=== PATIENT | female | born 1970 | race Caucasian/White ===

== ENCOUNTER 2019-06-06 09:30 | Inpatient (IN) | payer OTHER ==
[2019-06-06 09:48] VITALS: BMI 26.3
--- NOTE | 2019-06-06 10:43 | HP ---
CIWA Score Nausea/Vomitin-Int. Nausea w/Dry Heave Muscle Tremors: 7-Severe,w/o Arm Extended Anxiety: 4-Mod. Anxious/Guarded Agitation: 4-Moderately Restless Paroxysmal Sweats: No Perspiration Orientation: 0-Oriented Tacttile Disturbances: 0-None Auditory Disturbances: 0-None Visual Disturbances: 3-Moderate Sensitivity Headache: 2-Mild CIWA-Ar Total Score: 24 - Admission Criteria OASAS Guidelines: Admission for Medically Managed Detox: Requires at least one of the followin. CIWA greater than 12 2. Seizures within the past 24 hours 3. Delirium tremens within the past 24 hours 4. Hallucinations within the past 24 hours 5. Acute intervention needed for co occurring medical disorder 6. Acute intervention needed for co occurring psychiatric disorder 7. Severe withdrawal that cannot be handled at a lower level of care (continued vomiting, continued diarrhea, abnormal vital signs) requiring intravenous medication and/or fluids 8. Admission ROS S - HPI Allergies/Adverse Reactions: Allergies Allergy/AdvReac Type Severity Reaction Status Date / Time azithromycin Allergy Intermediate Hives Verified 06/06/19 09:36 chlordiazepoxide Allergy Intermediate Hives Verified 06/06/19 09:36 [From Librium] History of Present Illness: pt here requesting detox from etoh use , reports 6 beers /day x 1 week, relapse after leaving program inpt February 2019 @ [facility] x 10 mo , current symptoms as above , was at [facility] this morning , claims was sent here , current cathy 0.027 , latest use yesterday , current symptoms as above . d/c paperwork indicates " d/c to home or self-care " . reports she starts drinking at various times , reports tremor , denies seizures or blackouts , + falls while intoxicated , most recently 2 d. ago w/ abrasion to face and knees . pmhx : pysd , lupus , depression pshx : r elbow frx orif w/ hardware in place lmp April 2019 Exam Limitations: Clinical Condition, Intoxication - Ebola screening Have you traveled outside of the country in the last 21 days: No Have you had contact with anyone from an Ebola affected area: No Do you have a fever: No - Review of Systems Constitutional: See HPI EENT: reports: No Symptoms Reported Respiratory: reports: No Symptoms reported Cardiac: reports: No Symptoms Reported GI: reports: See HPI, Diarrhea, Nausea, Vomiting : reports: No Symptoms Reported Musculoskeletal: reports: No Symptoms Reported Integumentary: reports: See HPI, Bruising (colette knees , left chemo of face) Neuro: reports: See HPI, Unsteady Gait Endocrine: reports: No Symptoms Reported Psychiatric: reports: Orientated x3, Agitated, Anxious Patient History - Smoking Cessation Smoking history: Current every day smoker Have you smoked in the past 12 months: Yes Hx Chewing Tobacco Use: No Initiated information on smoking cessation: No - Substances abused Alcohol Substance route: Oral Frequency: Daily Amount used: 6 pack Age of first use: 17 Date of last use: 06/05/19 Admission Physical Exam BHS - Physical General Appearance: Yes: Severe Distress, Alcohol on Breath, Intoxicated, Anxious HEENTM: Yes: Hearing grossly Normal, Normocephalic, Normal Voice Respiratory: Yes: Chest Non-Tender, Lungs Clear, No Respiratory Distress, No Accessory Muscle Use Neck: Yes: No masses,lesions,Nodules, Trachea in good position Cardiology: Yes: Regular Rhythm, Regular Rate, S1, S2, Tachycardia Abdominal: Yes: Non Tender, Soft Extremities: Yes: Tremors Neurological: Yes: Motor Strength 5/5, Depressed Affect Integumentary: Yes: Other (superficial abrasions colette knees, left lateral maxilla) - Diagnostic (1) Alcohol intoxication Current Visit: Yes Status: Acute (2) Alcohol withdrawal Current Visit: Yes Status: Acute Breathalyzer - Breathalyzer Breathalyzer: 0.027 Urine Drug Screen - Test Device Lot number: [id number] Expiration date: 03/19/21 - Control Is test valid?: Yes - Results Drug screen NEGATIVE: No Urine drug screen results: BZO-Benzodiazepines Inpatient Rehab Admission - Rehab Decision to Admit Inpatient rehab admission?: No
[2019-06-06] MEDS ORDERED: MAGNESIUM HYDROX 2400MG/30ML ORAL SUSPENSION 30 ML CUP PO PRN (10:47)
[2019-06-06] MEDS ORDERED: ACETAMINOPHEN 325 MG TABLET (FP) PO PRN ×2 (10:47)
[2019-06-06] MEDS ORDERED: IBUPROFEN 400 MG TABLET (FP) PO PRN (10:47)
[2019-06-06] MEDS ORDERED: BISMUTH SUBSALICYLATE 262 MG/15 ML BTL PO PRN (10:47)
[2019-06-06] MEDS ORDERED: MAG HYDROX/AL HYDROX/SIMETH 30 ML UNIT-DOSE CUP PO PRN (10:47)
[2019-06-06] MEDS ORDERED: MAGNESIUM CITRATE 300 ML BOTTLE PO PRN (10:47)
[2019-06-06] MEDS ORDERED: ONDANSETRON *ODT* 4 MG TABLET SL PRN (10:47)
[2019-06-06] MEDS ORDERED: MENTHOL/PHENOL 1 EACH UD MM PRN (10:47)
[2019-06-06] MEDS: LORazepam 2 MG TABLET PO SCH ×3 (11:37→23:30)
[2019-06-06] MEDS: hydrOXYzine HCL 25 MG TABLET (FP) PO PRN ×2 (12:24→23:30)
[2019-06-06 14:25] LABS: HEMATOCRIT 42.6 % (32.4-45.2); HEMOGLOBIN 14.6 GM/dL (10.7-15.3); MCH 33.1 pg (25.7-33.7); MCHC 34.3 g/dl (32.0-36.0); MEAN CELL VOLUME 96.4 fl (80-96); MEAN PLT VOLUME 10.9 fl (7.5-11.1); RBC 4.42 M/mm3 (3.60-5.2); RDW 15.3 % (11.6-15.6); WHITE BLOOD COUNT 7.3 K/mm3 (4.0-10.0)
[2019-06-06 14:38] LABS: BILIRUBIN,TOTAL 0.7 mg/dL (0.2-1); BLOOD UREA NITROGEN 4.4 mg/dL (7-18); CALCIUM 8.8 mg/dL (8.5-10.1); CREATININE 0.6 mg/dL (0.55-1.3); POTASSIUM 3.7 mmol/L (3.5-5.1); TOT PROT 7.8 g/dl (6.4-8.2)
[2019-06-06 14:41] LABS: PLATELET COUNT 148 K/MM3 (134-434)
[2019-06-06] MEDS: LORazepam 1 MG TABLET PO PRN ×2 (14:44→21:12)
[2019-06-06] MEDS: THIAMINE HCL 100 MG TABLET (FP) PO SCH (23:30)
[2019-06-07] MEDS: LORazepam 2 MG TABLET PO SCH ×4 (05:37→22:38)
[2019-06-07] MEDS: PRENATAL VITAMINS W/ FOLIC ACID TABLET (FP) PO SCH (10:33)
--- NOTE | 2019-06-07 11:31 | PN ---
S CIWA - CIWA Score Nausea/Vomitin Muscle Tremors: 4-Moderate,w/Arms Extend Anxiety: 2 Agitation: 1-Slight > Activity Paroxysmal Sweats: 3 Orientation: 0-Oriented Tacttile Disturbances: 3-Moderate Itch/Numb/Burn Auditory Disturbances: 0-None Visual Disturbances: 0-None Headache: 0-None Present CIWA-Ar Total Score: 15 BHS Progress Note (SOAP) Subjective: interrupted sleep, sweats, shakes, left lat. orbit Objective: 06/07/19 11:33 pt aox3, tremor , lying in bed hematoma left lat orbital area 06/07/19 11:34 Vital Signs Temperature 98.1 F 06/07/19 09:27 Pulse Rate 65 06/07/19 09:27 Respiratory Rate 18 06/07/19 09:27 Blood Pressure 135/85 06/07/19 09:27 O2 Sat by Pulse Oximetry (%) Laboratory Tests 06/06/19 06/06/19 06/06/19 13:00 13:00 13:00 WBC 7.3 RBC 4.42 Hgb 14.6 Hct 42.6 MCV 96.4 H MCH 33.1 MCHC 34.3 RDW 15.3 Plt Count 148 MPV 10.9 Sodium 138 Potassium 3.7 Chloride 106 Carbon Dioxide 23 Anion Gap 9 BUN 4.4 L Creatinine 0.6 Est GFR (CKD-EPI)AfAm 124.92 Est GFR (CKD-EPI)NonAf 107.78 Random Glucose 80 Calcium 8.8 Total Bilirubin 0.7 AST 54 H ALT 70 H Alkaline Phosphatase 92 Total Protein 7.8 Albumin 4.0 RPR Titer Nonreactive Assessment: 06/07/19 11:34 withdrawal sx's elevated transaminasezs s/p fall 06/07/19 11:35 Plan: cont. detox increase fluids librium prn
[2019-06-07] MEDS: LORazepam 1 MG TABLET PO PRN ×2 (12:37→19:49)
[2019-06-07] MEDS: THIAMINE HCL 100 MG TABLET (FP) PO SCH (22:38)
[2019-06-07] MEDS: MELATONIN 5 MG TABLETS PO PRN (22:39)
[2019-06-07] MEDS: hydrOXYzine HCL 25 MG TABLET (FP) PO PRN (22:39)
[2019-06-08] MEDS: LORazepam 1 MG TABLET PO SCH ×4 (06:02→22:01)
[2019-06-08] MEDS: PRENATAL VITAMINS W/ FOLIC ACID TABLET (FP) PO SCH (10:26)
--- NOTE | 2019-06-08 12:09 | PN ---
BHS CIWA - CIWA Score Nausea/Vomitin-No Nausea/No Vomiting Muscle Tremors: 2 Anxiety: 3
--- NOTE | 2019-06-08 13:21 | PN ---
S CIWA - CIWA Score Nausea/Vomitin-No Nausea/No Vomiting Muscle Tremors: 2 Anxiety: 2 Agitation: 2 Paroxysmal Sweats: 3 Orientation: 0-Oriented Tacttile Disturbances: 0-None Auditory Disturbances: 0-None Visual Disturbances: 0-None Headache: 2-Mild CIWA-Ar Total Score: 11 S Progress Note (SOAP) Subjective: c/o sweats, headache, shakes, and anxiety. Objective: 06/08/19 13:19 Vital Signs 06/08/19 06/08/19 08:24 09:00 Temperature 98.2 F 98.1 F Pulse Rate 77 77 Respiratory 16 16 Rate Blood Pressure 133/85 130/78 Lab Results WBC 7.3 K/mm3 (4.0-10.0) 06/06/19 13:00 RBC 4.42 M/mm3 (3.60-5.2) 06/06/19 13:00 Hgb 14.6 GM/dL (10.7-15.3) 06/06/19 13:00 Hct 42.6 % (32.4-45.2) 06/06/19 13:00 MCV 96.4 fl (80-96) H 06/06/19 13:00 MCHC 34.3 g/dl (32.0-36.0) 06/06/19 13:00 RDW 15.3 % (11.6-15.6) 06/06/19 13:00 Plt Count 148 K/MM3 (134-434) 06/06/19 13:00 Sodium 138 mmol/L (136-145) 06/06/19 13:00 Potassium 3.7 mmol/L (3.5-5.1) 06/06/19 13:00 Chloride 106 mmol/L (98-107) 06/06/19 13:00 Carbon Dioxide 23 mmol/L (21-32) 06/06/19 13:00 Anion Gap 9 MMOL/L (8-16) 06/06/19 13:00 BUN 4.4 mg/dL (7-18) L 06/06/19 13:00 Creatinine 0.6 mg/dL (0.55-1.3) 06/06/19 13:00 Random Glucose 80 mg/dL (74-106) 06/06/19 13:00 Calcium 8.8 mg/dL (8.5-10.1) 06/06/19 13:00 Labs noted. Assessment: 06/08/19 13:19 AOX3, in no acute distress. Full ROM, ambulating in the unit. Withdrawal symptoms. Plan: continue detox.
[2019-06-08] MEDS: LORazepam 1 MG TABLET PO PRN (13:46)
[2019-06-08] MEDS: hydrOXYzine HCL 25 MG TABLET (FP) PO PRN ×2 (15:50→21:53)
[2019-06-08] MEDS: NICOTINE POLACRILEX 2 MG GUM BUC PRN ×2 (15:51→20:27)
[2019-06-08] MEDS: MELATONIN 5 MG TABLETS PO PRN (21:52)
[2019-06-08] MEDS: THIAMINE HCL 100 MG TABLET (FP) PO SCH (21:52)
[2019-06-09] MEDS ORDERED: LORazepam 0.5 MG TABLET PO PRN
[2019-06-09] MEDS: LORazepam 0.5 MG TABLET PO SCH ×2 (06:04→10:25)
[2019-06-09] MEDS: hydrOXYzine HCL 25 MG TABLET (FP) PO PRN ×2 (06:04→15:07)
[2019-06-09] MEDS: PRENATAL VITAMINS W/ FOLIC ACID TABLET (FP) PO SCH (10:25)
[2019-06-09] MEDS: NICOTINE POLACRILEX 2 MG GUM BUC PRN ×2 (13:46→15:51)
[2019-06-09 14:00] VITALS: BP 132/8; PULSE 91; TEMP 98.1
--- NOTE | 2019-06-09 14:14 | PN ---
S CIWA - CIWA Score Nausea/Vomitin-No Nausea/No Vomiting Muscle Tremors: 1-None Visible, but Gibson Anxiety: 2 Agitation: 0-Normal Activity Paroxysmal Sweats: 1-Minimal Palms Moist Orientation: 0-Oriented Tacttile Disturbances: 0-None Auditory Disturbances: 0-None Visual Disturbances: 0-None Headache: 0-None Present CIWA-Ar Total Score: 4 BHS Progress Note (SOAP) Subjective: Patient c/o anxiety, mild headache and sweating . Objective: 06/09/19 14:12 Laboratory Tests 06/06/19 06/06/19 06/06/19 09:48 12:00 13:00 WBC 7.3 RBC 4.42 Hgb 14.6 Hct 42.6 MCV 96.4 H MCH 33.1 MCHC 34.3 RDW 15.3 Plt Count 148 MPV 10.9 Sodium Potassium Chloride Carbon Dioxide Anion Gap BUN Creatinine Est GFR (CKD-EPI)AfAm Est GFR (CKD-EPI)NonAf Random Glucose Calcium Total Bilirubin AST ALT Alkaline Phosphatase Total Protein Albumin POC Urine HCG, Qual Negative RPR Titer TB (QFT) Incubation TB Test (QFT) Nil 0.03 TB Test (QFT) Mitogen 1.62 TB Test (QFT) Antigen 0.03 TB Test (QFT) Negative TB Positive Criteria 06/06/19 06/06/19 13:00 13:00 WBC RBC Hgb Hct MCV MCH MCHC RDW Plt Count MPV Sodium 138 Potassium 3.7 Chloride 106 Carbon Dioxide 23 Anion Gap 9 BUN 4.4 L Creatinine 0.6 Est GFR (CKD-EPI)AfAm 124.92 Est GFR (CKD-EPI)NonAf 107.78 Random Glucose 80 Calcium 8.8 Total Bilirubin 0.7 AST 54 H ALT 70 H Alkaline Phosphatase 92 Total Protein 7.8 Albumin 4.0 POC Urine HCG, Qual RPR Titer Nonreactive TB (QFT) Incubation TB Test (QFT) Nil TB Test (QFT) Mitogen TB Test (QFT) Antigen TB Test (QFT) TB Positive Criteria Vital Signs Temperature 98.1 F 06/09/19 13:59 Pulse Rate 91 H 06/09/19 13:59 Respiratory Rate 18 06/09/19 13:59 Blood Pressure 132/8 L 06/09/19 13:59 O2 Sat by Pulse Oximetry (%) PE alert and oriented x3 skin + facial flushing, warm +perrla, eoms intact bl ext no tremors full rom mildly anxious Assessment: 06/09/19 14:13 withdrawal sx Plan: continue detox monitor clinically
--- NOTE | 2019-06-09 16:41 | PN ---
S Progress Note Note: CONTACTED BY FLOOR RN TO REPORT AMA DEPARTURE ENSURED THAT PT COUNSELED RE RISKS OF RELAPSE OVERSEDATION LOSS OF TOLERANCE
[2019-06-10] MEDS ORDERED: LORazepam 0.5 MG TABLET PO ONE (05:00)
== END 2019-06-09 16:49 | disposition left against medical advice (07) | DRG 770 ==
LOC: YASAS 09:30 → Y6N 11:02
PROVIDERS: ADMIT Surgery; ATTEND Surgery
PROC: HZ2ZZZZ Detoxification Services for Substance Abuse Treatment (ICD-10-PCS; principal; 2019-06-06)
DX: F10.230 Alcohol dependence with withdrawal, uncomplicated (principal); F10.220 Alcohol dependence with intoxication, uncomplicated; F17.210 Nicotine dependence, cigarettes, uncomplicated; R74.0 Nonspecific elevation of levels of transaminase and lactic acid dehydrogenase [LDH]; Z88.1 Allergy status to other antibiotic agents; W19.XXXA Unspecified fall, initial encounter; Y93.9 Activity, unspecified; Y92.239 Unspecified place in hospital as the place of occurrence of the external cause
CPT/HCPCS: 36415; 80053; 81025; 85027; 86480; 86593

== ENCOUNTER 2019-08-15 10:44 | Inpatient (IN) | payer OTHER ==
[2019-08-15 11:07] VITALS: BMI 24.7
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
[2019-08-15] MEDS ORDERED: hydrOXYzine PAMOATE 25 MG CAPSULE (FP) PO PRN (12:32)
[2019-08-15] MEDS ORDERED: MAGNESIUM CITRATE 300 ML BOTTLE PO PRN (12:32)
[2019-08-15] MEDS ORDERED: IBUPROFEN 400 MG TABLET (FP) PO PRN (12:32)
[2019-08-15] MEDS ORDERED: METHOCARBAMOL 500 MG TABLET PO PRN (12:32)
[2019-08-15] MEDS ORDERED: MAG HYDROX/AL HYDROX/SIMETH 30 ML UNIT-DOSE CUP PO PRN (12:32)
[2019-08-15] MEDS ORDERED: MAGNESIUM HYDROX 2400MG/30ML ORAL SUSPENSION 30 ML CUP PO PRN (12:32)
[2019-08-15] MEDS ORDERED: BISMUTH SUBSALICYLATE 262 MG/15 ML BTL PO PRN (12:32)
[2019-08-15] MEDS ORDERED: MENTHOL/PHENOL 1 EACH UD MM PRN (12:32)
[2019-08-15] MEDS ORDERED: ACETAMINOPHEN 325 MG TABLET (FP) PO PRN ×2 (12:32)
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
[2019-08-15] MEDS: LORazepam 1 MG TABLET PO PRN (13:14)
[2019-08-15 14:34] LABS: HEMATOCRIT 44.6 % (32.4-45.2); HEMOGLOBIN 14.9 GM/dL (10.7-15.3); MCH 32.9 pg (25.7-33.7); MCHC 33.3 g/dl (32.0-36.0); MEAN CELL VOLUME 98.9 fl (80-96); MEAN PLT VOLUME 10.5 fl (7.5-11.1); PLATELET COUNT 149 K/MM3 (134-434); RBC 4.51 M/mm3 (3.60-5.2); RDW 14.4 % (11.6-15.6); WHITE BLOOD COUNT 6.8 K/mm3 (4.0-10.0)
[2019-08-15 14:44] LABS: ALBUMIN 4.1 g/dl (3.4-5.0); BILIRUBIN,TOTAL 0.7 mg/dL (0.2-1); BLOOD UREA NITROGEN 7.4 mg/dL (7-18); CALCIUM 9.8 mg/dL (8.5-10.1); CREATININE 0.7 mg/dL (0.55-1.3); POTASSIUM 4.3 mmol/L (3.5-5.1); TOT PROT 8.3 g/dl (6.4-8.2)
[2019-08-15] MEDS: LORazepam 2 MG TABLET PO SCH ×2 (16:56→22:28)
[2019-08-15] MEDS: THIAMINE HCL 100 MG TABLET (FP) PO SCH (22:28)
[2019-08-15] MEDS: MELATONIN 5 MG TABLETS PO PRN (22:28)
[2019-08-16] MEDS: LORazepam 2 MG TABLET PO SCH ×4 (05:51→22:47)
[2019-08-16] MEDS: PRENATAL VITAMINS W/ FOLIC ACID TABLET (FP) PO SCH (10:38)
[2019-08-16] MEDS: NICOTINE 21 MG/24 HOURS TOPICAL PATCH TD SCH (10:39)
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
--- NOTE | 2019-08-16 11:58 | PN ---
S CIWA - CIWA Score Nausea/Vomitin-No Nausea/No Vomiting Muscle Tremors: 3 Anxiety: 3 Agitation: 3 Paroxysmal Sweats: 3 Orientation: 0-Oriented Tacttile Disturbances: 0-None Auditory Disturbances: 0-None Visual Disturbances: 0-None Headache: 0-None Present CIWA-Ar Total Score: 12 S Progress Note (SOAP) Subjective: body aches sweats shakes tired irritable Objective: 08/16/19 11:56 Vital Signs Temperature 98.1 F 08/16/19 09:34 Pulse Rate 65 08/16/19 09:34 Respiratory Rate 18 08/16/19 09:34 Blood Pressure 130/83 08/16/19 09:34 O2 Sat by Pulse Oximetry (%) Laboratory Tests 08/15/19 08/15/19 08/15/19 11:34 13:20 13:20 WBC 6.8 RBC 4.51 Hgb 14.9 Hct 44.6 MCV 98.9 H MCH 32.9 MCHC 33.3 RDW 14.4 Plt Count 149 MPV 10.5 Sodium 139 Potassium 4.3 Chloride 102 Carbon Dioxide 26 Anion Gap 11 BUN 7.4 Creatinine 0.7 Est GFR (CKD-EPI)AfAm 118.74 Est GFR (CKD-EPI)NonAf 102.45 Random Glucose 79 Calcium 9.8 Total Bilirubin 0.7 AST 46 H ALT 53 Alkaline Phosphatase 99 Total Protein 8.3 H Albumin 4.1 POC Urine HCG, Qual Negative RPR Titer 08/15/19 13:20 WBC RBC Hgb Hct MCV MCH MCHC RDW Plt Count MPV Sodium Potassium Chloride Carbon Dioxide Anion Gap BUN Creatinine Est GFR (CKD-EPI)AfAm Est GFR (CKD-EPI)NonAf Random Glucose Calcium Total Bilirubin AST ALT Alkaline Phosphatase Total Protein Albumin POC Urine HCG, Qual RPR Titer Nonreactive labs noted aaox3 ambulating no acute distress Assessment: 08/16/19 11:58 withdrawals Plan: continue detox increase fluids
--- NOTE | 2019-08-16 17:36 | PN ---
S Progress Note Note: Vital Signs Temperature 97.4 F L 08/16/19 12:59 Pulse Rate 70 08/16/19 12:59 Respiratory Rate 18 08/16/19 12:59 Blood Pressure 130/77 08/16/19 12:59 O2 Sat by Pulse Oximetry (%) patient c/o of white itchy vaginal discharge. one time dose diflucan PO increase fluids follow up with QUANTITATIVE ANALYST continue to monitor
[2019-08-16] MEDS ORDERED: FLUCONAZOLE 50 MG TABLET PO ONE (18:00)
[2019-08-16] MEDS ORDERED: FLUCONAZOLE 150 MG TABLET PO ONE (20:15)
[2019-08-16] MEDS: LORazepam 1 MG TABLET PO PRN (21:23)
[2019-08-16] MEDS: THIAMINE HCL 100 MG TABLET (FP) PO SCH (22:47)
[2019-08-16] MEDS: MELATONIN 5 MG TABLETS PO PRN (22:53)
[2019-08-17] MEDS: LORazepam 1 MG TABLET PO SCH ×4 (06:21→22:01)
[2019-08-17] MEDS: PRENATAL VITAMINS W/ FOLIC ACID TABLET (FP) PO SCH (10:47)
[2019-08-17] MEDS: NICOTINE 21 MG/24 HOURS TOPICAL PATCH TD SCH (10:47)
[2019-08-17] MEDS: NICOTINE POLACRILEX 2 MG GUM BUC PRN ×3 (12:44→19:21)
[2019-08-17] MEDS: LORazepam 1 MG TABLET PO PRN ×2 (13:39→20:06)
--- NOTE | 2019-08-17 13:54 | PN ---
S CIWA - CIWA Score Nausea/Vomitin-No Nausea/No Vomiting Muscle Tremors: 2 Anxiety: 3 Agitation: 2 Paroxysmal Sweats: 3 Orientation: 0-Oriented Tacttile Disturbances: 0-None Auditory Disturbances: 0-None Visual Disturbances: 0-None Headache: 0-None Present CIWA-Ar Total Score: 10 S Progress Note (SOAP) Subjective: c/o sweats, anxiety, headache, and tiredness. Objective: 08/17/19 13:53 Vital Signs 08/17/19 08/17/19 07:28 09:52 Temperature 97.9 F 98.1 F Pulse Rate 67 61 Respiratory 18 16 Rate Blood Pressure 127/75 131/78 Lab Results WBC 6.8 K/mm3 (4.0-10.0) 08/15/19 13:20 RBC 4.51 M/mm3 (3.60-5.2) 08/15/19 13:20 Hgb 14.9 GM/dL (10.7-15.3) 08/15/19 13:20 Hct 44.6 % (32.4-45.2) 08/15/19 13:20 MCV 98.9 fl (80-96) H 08/15/19 13:20 MCHC 33.3 g/dl (32.0-36.0) 08/15/19 13:20 RDW 14.4 % (11.6-15.6) 08/15/19 13:20 Plt Count 149 K/MM3 (134-434) 08/15/19 13:20 Sodium 139 mmol/L (136-145) 08/15/19 13:20 Potassium 4.3 mmol/L (3.5-5.1) 08/15/19 13:20 Chloride 102 mmol/L (98-107) 08/15/19 13:20 Carbon Dioxide 26 mmol/L (21-32) 08/15/19 13:20 Anion Gap 11 MMOL/L (8-16) 08/15/19 13:20 BUN 7.4 mg/dL (7-18) 08/15/19 13:20 Creatinine 0.7 mg/dL (0.55-1.3) 08/15/19 13:20 Random Glucose 79 mg/dL (74-106) 08/15/19 13:20 Calcium 9.8 mg/dL (8.5-10.1) 08/15/19 13:20 Labs noted. Assessment: 08/17/19 13:54 Pt is alert and oriented x3 and in no acute respiratory distress. Full ROM, ambulating in the unit. Withdrawal symptoms. Plan: continue detox.
[2019-08-17] MEDS: THIAMINE HCL 100 MG TABLET (FP) PO SCH (22:01)
[2019-08-17] MEDS: MELATONIN 5 MG TABLETS PO PRN (22:02)
[2019-08-18] MEDS ORDERED: LORazepam 0.5 MG TABLET PO PRN
[2019-08-18] MEDS: LORazepam 0.5 MG TABLET PO SCH ×2 (05:54→10:27)
[2019-08-18] MEDS: PRENATAL VITAMINS W/ FOLIC ACID TABLET (FP) PO SCH (10:27)
[2019-08-18] MEDS: NICOTINE 21 MG/24 HOURS TOPICAL PATCH TD SCH (10:27)
[2019-08-18] MEDS: NICOTINE POLACRILEX 2 MG GUM BUC PRN ×2 (10:29→12:13)
[2019-08-18 12:03] VITALS: BP 118/62; PULSE 73; TEMP 98.6
--- NOTE | 2019-08-18 16:37 | DS ---
[facility] Detox Discharge Summary Admission Date: 08/15/19 Discharge Date: 08/18/19 - History Present History: Alcohol Dependence Additional Comments: Patient demanded to leave AMA as per note despite encouragement to stay. Patient instructed to call 911 if sick/withdrawal sxs and to see her PCP within 3 days. Pertinent Past History: Lupus Nicotine dependence ETOH dependence PTSD Anxiety Depression - Physical Exam Results Vital Signs: Vital Signs Temperature 98.6 F 08/18/19 12:03 Pulse Rate 73 08/18/19 12:03 Respiratory Rate 18 08/18/19 12:03 Blood Pressure 118/62 08/18/19 12:03 O2 Sat by Pulse Oximetry (%) Pertinent Admission Physical Exam Findings: Withdrawal sxs Laboratory Tests 08/15/19 08/15/19 08/15/19 11:34 13:20 13:20 WBC 6.8 RBC 4.51 Hgb 14.9 Hct 44.6 MCV 98.9 H MCH 32.9 MCHC 33.3 RDW 14.4 Plt Count 149 MPV 10.5 Sodium 139 Potassium 4.3 Chloride 102 Carbon Dioxide 26 Anion Gap 11 BUN 7.4 Creatinine 0.7 Est GFR (CKD-EPI)AfAm 118.74 Est GFR (CKD-EPI)NonAf 102.45 Random Glucose 79 Calcium 9.8 Total Bilirubin 0.7 AST 46 H ALT 53 Alkaline Phosphatase 99 Total Protein 8.3 H Albumin 4.1 POC Urine HCG, Qual Negative RPR Titer 08/15/19 13:20 WBC RBC Hgb Hct MCV MCH MCHC RDW Plt Count MPV Sodium Potassium Chloride Carbon Dioxide Anion Gap BUN Creatinine Est GFR (CKD-EPI)AfAm Est GFR (CKD-EPI)NonAf Random Glucose Calcium Total Bilirubin AST ALT Alkaline Phosphatase Total Protein Albumin POC Urine HCG, Qual RPR Titer Nonreactive Labs reviewed - Medication Discharge Medications: Ambulatory Orders Escitalopram Oxalate [Lexapro -] 20 mg PO DAILY 06/06/19 - Diagnosis (1) PTSD (post-traumatic stress disorder) Status: Chronic (2) Anxiety Status: Chronic (3) Uncomplicated alcohol dependence Status: Acute (4) Lupus Status: Chronic (5) MDD (major depressive disorder), recurrent episode Status: Chronic (6) Nicotine dependence Status: Chronic - AMA Did Patient Leave Against Medical Advice: Yes (Instructed to call [phone] [phone] if sick/withdrawal sxs)
[2019-08-19] MEDS ORDERED: LORazepam 0.5 MG TABLET PO ONE (05:00)
== END 2019-08-18 12:51 | disposition left against medical advice (07) | DRG 770 ==
LOC: YASAS 10:44 → Y6N 12:54
PROVIDERS: ADMIT Surgery; ATTEND Surgery
PROC: HZ2ZZZZ Detoxification Services for Substance Abuse Treatment (ICD-10-PCS; principal; 2019-08-15)
DX: F10.230 Alcohol dependence with withdrawal, uncomplicated (principal); F10.24 Alcohol dependence with alcohol-induced mood disorder; F10.282 Alcohol dependence with alcohol-induced sleep disorder; F17.210 Nicotine dependence, cigarettes, uncomplicated; F32.9 Major depressive disorder, single episode, unspecified; F41.9 Anxiety disorder, unspecified; F43.10 Post-traumatic stress disorder, unspecified; M32.9 Systemic lupus erythematosus, unspecified; N89.8 Other specified noninflammatory disorders of vagina; Z88.1 Allergy status to other antibiotic agents; Z88.8 Allergy status to other drugs, medicaments and biological substances
CPT/HCPCS: 36415; 80053; 81025; 85027; 86593

== ENCOUNTER 2019-10-05 08:13 | Inpatient (IN) | payer OTHER ==
[2019-10-05 09:11] VITALS: BMI 23.8
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
[2019-10-05] MEDS ORDERED: MENTHOL/PHENOL 1 EACH UD MM PRN (09:35)
[2019-10-05] MEDS ORDERED: IBUPROFEN 400 MG TABLET (FP) PO PRN (09:35)
[2019-10-05] MEDS ORDERED: MAGNESIUM HYDROX 2400MG/30ML ORAL SUSPENSION 30 ML CUP PO PRN (09:35)
[2019-10-05] MEDS ORDERED: MAG HYDROX/AL HYDROX/SIMETH 30 ML UNIT-DOSE CUP PO PRN (09:35)
[2019-10-05] MEDS ORDERED: ACETAMINOPHEN 325 MG TABLET (FP) PO PRN ×2 (09:35)
[2019-10-05] MEDS ORDERED: BISMUTH SUBSALICYLATE 524 MG/30 ML UD PO PRN (09:35)
[2019-10-05] MEDS ORDERED: MAGNESIUM CITRATE 300 ML BOTTLE PO PRN (09:35)
[2019-10-05] MEDS ORDERED: ESCITALOPRAM OXALATE 20 MG TABLET (FP) PO ONE (10:00)
[2019-10-05] MEDS ORDERED: LORazepam 2 MG TABLET PO ONE (10:30)
[2019-10-05] MEDS: LORazepam 2 MG TABLET PO SCH ×3 (10:34→22:57)
[2019-10-05] MEDS: PRENATAL VITAMINS W/ FOLIC ACID TABLET (FP) PO SCH (10:45)
[2019-10-05] MEDS: METHOCARBAMOL 500 MG TABLET PO PRN (12:37)
[2019-10-05] MEDS: LORazepam 1 MG TABLET PO PRN ×2 (12:37→20:30)
[2019-10-05 15:27] LABS: HEMOGLOBIN 14.8 GM/dL (10.7-15.3); MCH 33.4 pg (25.7-33.7); MCHC 33.7 g/dl (32.0-36.0); MEAN PLT VOLUME 10.5 fl (7.5-11.1); PLATELET COUNT 167 K/MM3 (134-434); RBC 4.44 M/mm3 (3.60-5.2); RDW 14.4 % (11.6-15.6); WHITE BLOOD COUNT 6.9 K/mm3 (4.0-10.0)
[2019-10-05 15:33] LABS: BILIRUBIN,TOTAL 0.3 mg/dL (0.2-1); BLOOD UREA NITROGEN 7.5 mg/dL (7-18); CALCIUM 9.6 mg/dL (8.5-10.1); CREATININE 0.8 mg/dL (0.55-1.3); POTASSIUM 3.9 mmol/L (3.5-5.1); TOT PROT 8.4 g/dl (6.4-8.2)
[2019-10-05] MEDS: THIAMINE HCL 100 MG TABLET (FP) PO SCH (22:57)
[2019-10-05] MEDS: NICOTINE POLACRILEX 4 MG GUM BUC PRN (22:57)
[2019-10-06] MEDS: LORazepam 2 MG TABLET PO SCH ×4 (05:19→22:55)
[2019-10-06] MEDS: PRENATAL VITAMINS W/ FOLIC ACID TABLET (FP) PO SCH (10:12)
[2019-10-06] MEDS: NICOTINE POLACRILEX 4 MG GUM BUC PRN ×2 (10:12→16:52)
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
[2019-10-06] MEDS: ESCITALOPRAM OXALATE 20 MG TABLET (FP) PO SCH (12:17)
[2019-10-06] MEDS: LORazepam 1 MG TABLET PO PRN ×2 (12:18→20:42)
[2019-10-06] MEDS ORDERED: cloNIDine HCL 0.1 MG TABLET PO PRN (16:48)
--- NOTE | 2019-10-06 16:48 | EKG ---
Test Reason : Blood Pressure : / mmHG Vent. Rate : 085 BPM Atrial Rate : 085 BPM P-R Int : 130 ms QRS Dur : 098 ms QT Int : 400 ms P-R-T Axes : 038 051 032 degrees QTc Int : 476 ms NORMAL SINUS RHYTHM MINIMAL VOLTAGE CRITERIA FOR LVH, MAY BE NORMAL VARIANT NO PREVIOUS ECGS AVAILABLE Confirmed by GERMAN ALMODOVAR MD ([id number]) on 10/06/2019 4:47:55 PM Referred By: Confirmed By:GERMAN ALMODOVAR MD
--- NOTE | 2019-10-06 16:48 | PN ---
S CIWA - CIWA Score Nausea/Vomitin-Mild Nausea/No Vomiting Muscle Tremors: 3 Anxiety: 4-Mod. Anxious/Guarded Agitation: 3 Paroxysmal Sweats: 3 Orientation: 0-Oriented Tacttile Disturbances: 0-None Auditory Disturbances: 0-None Visual Disturbances: 0-None Headache: 0-None Present CIWA-Ar Total Score: 14 BHS Progress Note (SOAP) Subjective: Tremor, diarrhea Objective: 10/06/19 16:46 Last Vital Signs Temp Pulse Resp BP Pulse Ox 98.2 F 79 18 131/91 10/06/19 11:31 10/06/19 11:31 10/06/19 11:31 10/06/19 11:31 Elevated b/p: has htn when drinking alcohol, not on medication Laboratory Tests 10/05/19 10/05/19 10/05/19 09:45 09:45 09:45 WBC 6.9 RBC 4.44 Hgb 14.8 Hct 44.0 MCV 99.0 H MCH 33.4 MCHC 33.7 RDW 14.4 Plt Count 167 MPV 10.5 Sodium 138 Potassium 3.9 Chloride 104 Carbon Dioxide 26 Anion Gap 8 BUN 7.5 Creatinine 0.8 Est GFR (CKD-EPI)AfAm 101.04 Est GFR (CKD-EPI)NonAf 87.18 Random Glucose 108 H Calcium 9.6 Total Bilirubin 0.3 AST 31 ALT 48 Alkaline Phosphatase 96 Total Protein 8.4 H Albumin 4.0 RPR Titer Nonreactive Labs reviewed Assessment: 10/06/19 16:47 Withdrawal sxs Has HTN, not on medication Plan: Continue detox Encouraged PO water hydration HTN: start clonidine 0.1mg PO q8hr prn if b/p > 140/90
[2019-10-06] MEDS: THIAMINE HCL 100 MG TABLET (FP) PO SCH (22:55)
[2019-10-07] MEDS: LORazepam 1 MG TABLET PO SCH ×4 (05:33→21:59)
[2019-10-07] MEDS: NICOTINE POLACRILEX 4 MG GUM BUC PRN ×3 (08:54→19:48)
[2019-10-07] MEDS: hydrOXYzine PAMOATE 25 MG CAPSULE (FP) PO PRN ×2 (08:55→21:59)
[2019-10-07] MEDS: PRENATAL VITAMINS W/ FOLIC ACID TABLET (FP) PO SCH (10:48)
[2019-10-07] MEDS: ESCITALOPRAM OXALATE 20 MG TABLET (FP) PO SCH (10:48)
--- NOTE | 2019-10-07 13:03 | PN ---
S CIWA - CIWA Score Nausea/Vomitin-No Nausea/No Vomiting Muscle Tremors: 3 Anxiety: 3 Agitation: 3 Paroxysmal Sweats: 3 Orientation: 0-Oriented Tacttile Disturbances: 0-None Auditory Disturbances: 0-None Visual Disturbances: 0-None Headache: 0-None Present CIWA-Ar Total Score: 12 BHS Progress Note (SOAP) Subjective: sweats shakes agitation anxiety interrupted sleep Objective: 10/07/19 14:11 Vital Signs Temperature 99.1 F 10/07/19 13:32 Pulse Rate 70 10/07/19 13:32 Respiratory Rate 18 10/07/19 13:32 Blood Pressure 136/79 10/07/19 13:32 O2 Sat by Pulse Oximetry (%) Laboratory Tests 10/05/19 10/05/19 10/05/19 09:22 09:45 09:45 WBC 6.9 RBC 4.44 Hgb 14.8 Hct 44.0 MCV 99.0 H MCH 33.4 MCHC 33.7 RDW 14.4 Plt Count 167 MPV 10.5 Sodium 138 Potassium 3.9 Chloride 104 Carbon Dioxide 26 Anion Gap 8 BUN 7.5 Creatinine 0.8 Est GFR (CKD-EPI)AfAm 101.04 Est GFR (CKD-EPI)NonAf 87.18 Random Glucose 108 H Calcium 9.6 Total Bilirubin 0.3 AST 31 ALT 48 Alkaline Phosphatase 96 Total Protein 8.4 H Albumin 4.0 POC Urine HCG, Qual Negative RPR Titer 10/05/19 09:45 WBC RBC Hgb Hct MCV MCH MCHC RDW Plt Count MPV Sodium Potassium Chloride Carbon Dioxide Anion Gap BUN Creatinine Est GFR (CKD-EPI)AfAm Est GFR (CKD-EPI)NonAf Random Glucose Calcium Total Bilirubin AST ALT Alkaline Phosphatase Total Protein Albumin POC Urine HCG, Qual RPR Titer Nonreactive labs noted aaox3 ambulating no acute distress Assessment: 10/07/19 14:12 withdrawal sx Plan: continue detox increase fluids
[2019-10-07] MEDS: LORazepam 1 MG TABLET PO PRN (13:26)
[2019-10-07] MEDS: THIAMINE HCL 100 MG TABLET (FP) PO SCH (21:59)
[2019-10-07] MEDS: METHOCARBAMOL 500 MG TABLET PO PRN (21:59)
[2019-10-07] MEDS: MELATONIN 5 MG TABLETS PO PRN (21:59)
[2019-10-08] MEDS ORDERED: LORazepam 0.5 MG TABLET PO PRN
[2019-10-08] MEDS: hydrOXYzine PAMOATE 25 MG CAPSULE (FP) PO PRN ×2 (06:14→22:08)
[2019-10-08] MEDS: LORazepam 0.5 MG TABLET PO SCH ×4 (06:14→22:07)
[2019-10-08] MEDS: PRENATAL VITAMINS W/ FOLIC ACID TABLET (FP) PO SCH (10:33)
[2019-10-08] MEDS: ESCITALOPRAM OXALATE 20 MG TABLET (FP) PO SCH (10:33)
[2019-10-08] MEDS: METHOCARBAMOL 500 MG TABLET PO PRN (10:35)
[2019-10-08] MEDS: NICOTINE POLACRILEX 4 MG GUM BUC PRN ×3 (10:35→20:22)
--- NOTE | 2019-10-08 12:10 | PN ---
S CIWA - CIWA Score Nausea/Vomitin-No Nausea/No Vomiting Muscle Tremors: 3 Anxiety: 0-No Anxiety, at Ease Agitation: 2 Paroxysmal Sweats: No Perspiration Orientation: 0-Oriented Tacttile Disturbances: 0-None Auditory Disturbances: 0-None Visual Disturbances: 0-None Headache: 0-None Present CIWA-Ar Total Score: 5 BHS Progress Note (SOAP) Subjective: feeling better sweats body aches Objective: 10/08/19 12:08 Vital Signs Temperature 97.7 F 10/08/19 06:37 Pulse Rate 65 10/08/19 06:37 Respiratory Rate 18 10/08/19 06:37 Blood Pressure 148/87 10/08/19 06:37 O2 Sat by Pulse Oximetry (%) Laboratory Tests 10/05/19 10/05/19 10/05/19 09:22 09:45 09:45 WBC 6.9 RBC 4.44 Hgb 14.8 Hct 44.0 MCV 99.0 H MCH 33.4 MCHC 33.7 RDW 14.4 Plt Count 167 MPV 10.5 Sodium 138 Potassium 3.9 Chloride 104 Carbon Dioxide 26 Anion Gap 8 BUN 7.5 Creatinine 0.8 Est GFR (CKD-EPI)AfAm 101.04 Est GFR (CKD-EPI)NonAf 87.18 Random Glucose 108 H Calcium 9.6 Total Bilirubin 0.3 AST 31 ALT 48 Alkaline Phosphatase 96 Total Protein 8.4 H Albumin 4.0 POC Urine HCG, Qual Negative RPR Titer 10/05/19 09:45 WBC RBC Hgb Hct MCV MCH MCHC RDW Plt Count MPV Sodium Potassium Chloride Carbon Dioxide Anion Gap BUN Creatinine Est GFR (CKD-EPI)AfAm Est GFR (CKD-EPI)NonAf Random Glucose Calcium Total Bilirubin AST ALT Alkaline Phosphatase Total Protein Albumin POC Urine HCG, Qual RPR Titer Nonreactive labs noted aaox3 ambulating no acute distress Assessment: 10/08/19 12:10 mild withdrawal sx Plan: continue detox increase fluids d/c in am
[2019-10-08] MEDS: THIAMINE HCL 100 MG TABLET (FP) PO SCH (22:07)
[2019-10-08] MEDS: MELATONIN 5 MG TABLETS PO PRN (22:09)
[2019-10-09] MEDS ORDERED: LORazepam 0.5 MG TABLET PO ONE (05:00)
[2019-10-09] MEDS: NICOTINE POLACRILEX 4 MG GUM BUC PRN (06:08)
[2019-10-09] MEDS: hydrOXYzine PAMOATE 25 MG CAPSULE (FP) PO PRN (08:56)
[2019-10-09 09:47] VITALS: BP 138/87; PULSE 86; TEMP 97.3
--- NOTE | 2019-10-09 10:07 | DS ---
[facility] Detox Discharge Summary Admission Date: 10/05/19 Discharge Date: 10/09/19 - History Present History: Alcohol Dependence - Physical Exam Results Vital Signs: Vital Signs Temperature 97.3 F L 10/09/19 09:44 Pulse Rate 86 10/09/19 09:44 Respiratory Rate 18 10/09/19 09:44 Blood Pressure 138/87 10/09/19 09:44 O2 Sat by Pulse Oximetry (%) Pertinent Admission Physical Exam Findings: pt arrived in withdrawals Vital Signs Temperature 97.3 F L 10/09/19 09:44 Pulse Rate 86 10/09/19 09:44 Respiratory Rate 18 10/09/19 09:44 Blood Pressure 138/87 10/09/19 09:44 O2 Sat by Pulse Oximetry (%) Laboratory Tests 10/05/19 10/05/19 10/05/19 09:22 09:45 09:45 WBC 6.9 RBC 4.44 Hgb 14.8 Hct 44.0 MCV 99.0 H MCH 33.4 MCHC 33.7 RDW 14.4 Plt Count 167 MPV 10.5 Sodium 138 Potassium 3.9 Chloride 104 Carbon Dioxide 26 Anion Gap 8 BUN 7.5 Creatinine 0.8 Est GFR (CKD-EPI)AfAm 101.04 Est GFR (CKD-EPI)NonAf 87.18 Random Glucose 108 H Calcium 9.6 Total Bilirubin 0.3 AST 31 ALT 48 Alkaline Phosphatase 96 Total Protein 8.4 H Albumin 4.0 POC Urine HCG, Qual Negative RPR Titer 10/05/19 09:45 WBC RBC Hgb Hct MCV MCH MCHC RDW Plt Count MPV Sodium Potassium Chloride Carbon Dioxide Anion Gap BUN Creatinine Est GFR (CKD-EPI)AfAm Est GFR (CKD-EPI)NonAf Random Glucose Calcium Total Bilirubin AST ALT Alkaline Phosphatase Total Protein Albumin POC Urine HCG, Qual RPR Titer Nonreactive today pt is aaox3 ambulating no acute distress - Treatment Hospital Course: Detox Protocol Followed, Detoxed Safely, Responded well, Discharged Condition Good, Rehab Referral Accepted Patient has Accepted a Rehab Referral to: pt declined rehab - Medication Discharge Medications: Ambulatory Orders Escitalopram Oxalate [Lexapro -] 20 mg PO DAILY 06/06/19 - Diagnosis (1) Alcohol-induced anxiety disorder Current Visit: Yes Status: Acute (2) Alcohol dependence with withdrawal, uncomplicated Current Visit: Yes Status: Chronic (3) HTN (hypertension) Current Visit: Yes Status: Chronic Qualifiers: Hypertension type: essential hypertension Qualified Code(s): I10 - Essential (primary) hypertension (4) Lupus Current Visit: Yes Status: Chronic (5) Nicotine dependence Current Visit: Yes Status: Chronic Qualifiers: Nicotine product type: cigarettes Substance use status: uncomplicated Qualified Code(s): F17.210 - Nicotine dependence, cigarettes, uncomplicated (6) Alcohol-induced mood disorder Current Visit: No Status: Acute (7) Alcohol-induced sleep disorder Current Visit: No Status: Acute (8) Anxiety Current Visit: No Status: Chronic (9) MDD (major depressive disorder), recurrent episode Current Visit: No Status: Chronic (10) PTSD (post-traumatic stress disorder) Current Visit: No Status: Chronic - AMA Did Patient Leave Against Medical Advice: No
== END 2019-10-09 09:16 | disposition home or self-care (01) | DRG 775 ==
LOC: YASAS 08:13 → Y6N 09:52
PROVIDERS: ADMIT Allergy & Immunology; ATTEND Allergy & Immunology
PROC: HZ2ZZZZ Detoxification Services for Substance Abuse Treatment (ICD-10-PCS; principal; 2019-10-05)
DX: F10.230 Alcohol dependence with withdrawal, uncomplicated (principal); F17.210 Nicotine dependence, cigarettes, uncomplicated; F10.280 Alcohol dependence with alcohol-induced anxiety disorder; F10.282 Alcohol dependence with alcohol-induced sleep disorder; F10.24 Alcohol dependence with alcohol-induced mood disorder; F33.9 Major depressive disorder, recurrent, unspecified; F43.10 Post-traumatic stress disorder, unspecified; I10 Essential (primary) hypertension; M32.9 Systemic lupus erythematosus, unspecified
CPT/HCPCS: 36415; 80053; 81025; 85027; 86593; 93005; 93010; J0735

== ENCOUNTER 2019-12-11 10:50 | Inpatient (IN) | payer OTHER ==
[2019-12-11 11:05] VITALS: BMI 27.8
--- NOTE | 2019-12-11 11:48 | HP ---
CIWA Score Nausea/Vomitin-Mild Nausea/No Vomiting Muscle Tremors: 5 Anxiety: 4-Mod. Anxious/Guarded Agitation: 3 Paroxysmal Sweats: 3 Orientation: 1-Uncertain about Date Tacttile Disturbances: 1-Very Mild Itch/Numbness Auditory Disturbances: 0-None Visual Disturbances: 0-None Headache: 0-None Present CIWA-Ar Total Score: 18 - Admission Criteria OASAS Guidelines: Admission for Medically Managed Detox: Requires at least one of the followin. CIWA greater than 12 2. Seizures within the past 24 hours 3. Delirium tremens within the past 24 hours 4. Hallucinations within the past 24 hours 5. Acute intervention needed for co occurring medical disorder 6. Acute intervention needed for co occurring psychiatric disorder 7. Severe withdrawal that cannot be handled at a lower level of care (continued vomiting, continued diarrhea, abnormal vital signs) requiring intravenous medication and/or fluids 8. Admitting History and Physical - Admission Chief Complaint: " I want to enter detox once again. Last time I was referred to a rehab but had no bed and I relapsed immediately." History of Present Illness: 49 female with alcohol dependence with withdrawals. She states that her father' s caused her relapse. Prior to that she did not have a drinking problem and socially she drank but not to excess. Since that time she's had 2 years of abstinence and another 10 months of abstinenece. She relapsed just 2 weeks ago. She denies any blackouts. She hasn't any withdrawal seizures. PMH: Discoid Lupus Psych: Panic Disorder, PTSD, on lexapro in the past. Last taken 2 months ago. Psurg: Left elbow surgery She smokes 12 ciggarettes daily, smoked today. She is drinking 1/2 pint vodka daily and 3-4 24 oz beers daily, last drank this morning. She was seen and given one dose of librium and got an allergic reaction to it and given benadryl for it at [facility], see discharge papers from [facility]. They did not have detox there so protective services case worker made arrangements to send to [facility] for detox. 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 History of Recent Travel: No Admission ROS [facility] - [facility] Allergies/Adverse Reactions: Allergies Allergy/AdvReac Type Severity Reaction Status Date / Time azithromycin Allergy Intermediate Hives Verified 12/11/19 11:00 chlordiazepoxide Allergy Intermediate Hives Verified 12/11/19 11:00 [From [employer]] - Ebola screening Have you traveled outside of the country in the last 21 days: No Have you had contact with anyone from an Ebola affected area: No Have you been sick,other than usual withdrawal symptoms: No Do you have a fever: No - Review of Systems Constitutional: Chills, Diaphoresis, Unintentional Wgt. Loss EENT: reports: No Symptoms Reported Respiratory: reports: No Symptoms reported Cardiac: reports: No Symptoms Reported GI: reports: Nausea : reports: No Symptoms Reported Musculoskeletal: reports: No Symptoms Reported Integumentary: reports: No Symptoms Reported Neuro: reports: No Symptoms reported Endocrine: reports: No Symptoms Reported Hematology: reports: No Symptoms Reported Psychiatric: reports: Judgement Intact, Mood/Affect Appropiate, Orientated x3 Other Systems: Reviewed and Negative Patient History - Patient Medical History Hx Anemia: No Hx Asthma: No Hx Chronic Obstructive Pulmonary Disease (COPD): No Hx Cancer: No Hx Cardiac Disorders: No Hx Congestive Heart Failure: No Hx Hypertension: Yes (no medication - high with drinking) Hx Pacemaker: No HX Cerebrovascular Accident: No Hx Seizures: No Hx Dementia: No Hx Diabetes: No Hx Gastrointestinal Disorders: No Hx Liver Disease: No Hx Genitourinary Disorders: No Hx Sexually Transmitted Disorders: No Hx Renal Disease (ESRD): No Hx Thyroid Disease: No Hx Human Immunodeficiency Virus (HIV): No Hx Hepatitis C: No Hx Depression: Yes (hospitalized several months ago - on meds - sees psych; PTSD ) Hx Suicide Attempt: No Hx Schizophrenia: No - Patient Surgical History Past Surgical History: Yes Hx Neurologic Surgery: No Hx Cataract Extraction: No Hx Cardiac Surgery: No Hx Lung Surgery: No Hx Breast Surgery: No Hx Breast Biopsy: No Hx Abdominal Surgery: No Hx Appendectomy: No Hx Cholecystectomy: No Hx Genitourinary Surgery: No Hx Section: No Hx Orthopedic Surgery: Yes (R elbow fx reconstructive sx.) Anesthesia Reaction: No - PPD History Previous Implant?: Yes Documented Results: Negative w/proof Implanted On Prior [facility] Admission?: Yes Date: 08/17/19 Results: 0mm PPD to be Administered?: No - Reproductive History Last Menstrual Period: 06/04/19 - Smoking Cessation Smoking history: Current every day smoker Have you smoked in the past 12 months: Yes Aproximately how many cigarettes per day: 15 Hx Chewing Tobacco Use: No Initiated information on smoking cessation: Yes 'Breaking Loose' booklet given: 12/11/19 - Substances abused Alcohol Substance route: Oral Frequency: Daily Amount used: 1/2 pint of vodka 3-4 & 24oz cans of beer Age of first use: 17 Date of last use: 12/11/19 Admission Physical Exam [facility] - Vital Signs Vital Signs: Vital Signs - 24 hr 12/11/19 10:58 Temperature 98.9 F Pulse Rate 104 H Respiratory 18 Rate Blood Pressure 176/94 H - Physical General Appearance: Yes: Mild Distress, Alcohol on Breath, Tremorous, Irritable , Sweating HEENTM: Yes: EOMI, Hearing grossly Normal, Normal ENT Inspection, Normocephalic , Normal Voice, VALORIE, Pharynx Normal, Tm's normal Respiratory: Yes: Chest Non-Tender, Lungs Clear, Normal Breath Sounds, No Respiratory Distress, No Accessory Muscle Use Neck: Yes: No masses,lesions,Nodules, Supple, Trachea in good position Breast: Yes: Breast Exam Deferred Cardiology: Yes: Regular Rhythm, S1, S2, Tachycardia Abdominal: Yes: Normal Bowel Sounds, Flat, Soft, Tenderness. No: Distended, Guarding, Rebound Genitourinary: Yes: Within Normal Limits Back: Yes: Normal Inspection Musculoskeletal: Yes: full range of Motion, Gait Steady, Pelvis Stable Extremities: Yes: Normal Capillary Refill, Normal Inspection, Normal Range of Motion, Non-Tender Neurological: Yes: store director II-XII NML intact, Fully Oriented, Alert, Motor Strength 5/5, Normal Mood/Affect, Normal Response Integumentary: Yes: Normal Color, Warm Lymphatic: Yes: Within Normal Limits - Diagnostic (1) Alcohol dependence with withdrawal, uncomplicated Current Visit: Yes Status: Chronic (2) Anxiety Current Visit: Yes Status: Chronic (3) HTN (hypertension) Current Visit: Yes Status: Chronic Qualifiers: Hypertension type: essential hypertension Qualified Code(s): I10 - Essential (primary) hypertension (4) Lupus Current Visit: Yes Status: Chronic (5) MDD (major depressive disorder), recurrent episode Current Visit: Yes Status: Chronic Cleared for Admission S - Detox or Rehab [facility] Level of Care: Medically Managed Detox Regimen/Protocol: Ativan Claeared for Rehab Admission: No Screened but not Admitted - Documentation of Visit Screened but not Admitted: No Breathalyzer - Breathalyzer Breathalyzer: 0.034 Urine Drug Screen - Test Device Lot number: [id number] Expiration date: 06/19/21 - Control Is test valid?: Yes - Results Drug screen NEGATIVE: No Urine drug screen results: BZO-Benzodiazepines Inpatient Rehab Admission - Rehab Decision to Admit Inpatient rehab admission?: No
[2019-12-11] MEDS ORDERED: IBUPROFEN 400 MG TABLET (FP) PO PRN (12:00)
[2019-12-11] MEDS ORDERED: MAG HYDROX/AL HYDROX/SIMETH 30 ML UNIT-DOSE CUP PO PRN (12:00)
[2019-12-11] MEDS ORDERED: BISMUTH SUBSALICYLATE 524 MG/30 ML UD PO PRN (12:00)
[2019-12-11] MEDS ORDERED: METHOCARBAMOL 500 MG TABLET PO PRN (12:00)
[2019-12-11] MEDS ORDERED: MAGNESIUM CITRATE 300 ML BOTTLE PO PRN (12:00)
[2019-12-11] MEDS ORDERED: MENTHOL/PHENOL 1 EACH UD MM PRN (12:00)
[2019-12-11] MEDS ORDERED: ACETAMINOPHEN 325 MG TABLET (FP) PO PRN ×2 (12:00)
[2019-12-11] MEDS ORDERED: MAGNESIUM HYDROX 2400MG/30ML ORAL SUSPENSION 30 ML CUP PO PRN (12:00)
[2019-12-11] MEDS ORDERED: hydrOXYzine PAMOATE 25 MG CAPSULE (FP) PO PRN (12:00)
[2019-12-11] MEDS ORDERED: LORazepam 1 MG TABLET PO PRN (12:00)
[2019-12-11] MEDS: LORazepam 2 MG TABLET PO SCH ×3 (13:01→22:05)
[2019-12-11 17:39] LABS: HEMATOCRIT 40.7 % (32.4-45.2); HEMOGLOBIN 13.7 GM/dL (10.7-15.3); MCH 32.8 pg (25.7-33.7); MCHC 33.6 g/dl (32.0-36.0); MEAN CELL VOLUME 97.4 fl (80-96); MEAN PLT VOLUME 10.5 fl (7.5-11.1); PLATELET COUNT 149 K/MM3 (134-434); RBC 4.18 M/mm3 (3.60-5.2); RDW 13.8 % (11.6-15.6); WHITE BLOOD COUNT 5.6 K/mm3 (4.0-10.0)
[2019-12-11] MEDS: NICOTINE 14 MG/24 HOURS TOPICAL PATCH TD SCH (17:46)
[2019-12-11 18:01] LABS: ALBUMIN 4.2 g/dl (3.4-5.0); BILIRUBIN,TOTAL 0.6 mg/dL (0.2-1); BLOOD UREA NITROGEN 5.6 mg/dL (7-18); CREATININE 0.7 mg/dL (0.55-1.3); TOT PROT 8.2 g/dl (6.4-8.2)
[2019-12-11] MEDS: THIAMINE HCL 100 MG TABLET (FP) PO SCH (22:04)
[2019-12-11] MEDS: MELATONIN 5 MG TABLETS PO PRN (22:05)
[2019-12-12] MEDS: LORazepam 2 MG TABLET PO SCH ×4 (06:15→22:15)
[2019-12-12] MEDS ORDERED: NICOTINE 7 MG/24 HOURS TOPICAL PATCH TD SCH (10:00)
[2019-12-12] MEDS: NICOTINE 14 MG/24 HOURS TOPICAL PATCH TD SCH (10:29)
[2019-12-12] MEDS: PRENATAL VITAMINS W/ FOLIC ACID TABLET (FP) PO SCH (10:30)
[2019-12-12] MEDS: NICOTINE POLACRILEX 2 MG GUM BUC PRN ×4 (10:31→22:16)
[2019-12-12] MEDS: MELATONIN 5 MG TABLETS PO PRN (22:15)
[2019-12-12] MEDS: THIAMINE HCL 100 MG TABLET (FP) PO SCH (22:15)
[2019-12-13] MEDS: LORazepam 1 MG TABLET PO SCH ×2 (05:38→10:36)
[2019-12-13] MEDS: PRENATAL VITAMINS W/ FOLIC ACID TABLET (FP) PO SCH (10:36)
[2019-12-13] MEDS: NICOTINE 14 MG/24 HOURS TOPICAL PATCH TD SCH (10:36)
[2019-12-13] MEDS: NICOTINE POLACRILEX 2 MG GUM BUC PRN ×2 (10:38→14:59)
--- NOTE | 2019-12-13 10:44 | PN ---
S CIWA - CIWA Score Nausea/Vomitin-No Nausea/No Vomiting Muscle Tremors: 1-None Visible, but [place] Anxiety: 2 Agitation: 2 Paroxysmal Sweats: 1-Minimal Palms Moist Orientation: 0-Oriented Tacttile Disturbances: 1-Very Mild Itch/Numbness Auditory Disturbances: 0-None Visual Disturbances: 0-None Headache: 1-Very Mild CIWA-Ar Total Score: 8 BHS Progress Note (SOAP) Subjective: Patient c/op if interrupted sleep, headache , anxious Objective: 12/13/19 15:37 Vital Signs Temperature 97.8 F 12/13/19 13:34 Pulse Rate 85 12/13/19 13:34 Respiratory Rate 18 12/13/19 13:34 Blood Pressure 122/86 12/13/19 13:34 O2 Sat by Pulse Oximetry (%) Laboratory Last Values WBC 5.6 K/mm3 (4.0-10.0) 12/11/19 12:30 RBC 4.18 M/mm3 (3.60-5.2) 12/11/19 12:30 Hgb 13.7 GM/dL (10.7-15.3) 12/11/19 12:30 Hct 40.7 % (32.4-45.2) 12/11/19 12:30 MCV 97.4 fl (80-96) H 12/11/19 12:30 MCH 32.8 pg (25.7-33.7) 12/11/19 12:30 MCHC 33.6 g/dl (32.0-36.0) 12/11/19 12:30 RDW 13.8 % (11.6-15.6) 12/11/19 12:30 Plt Count 149 K/MM3 (134-434) 12/11/19 12:30 MPV 10.5 fl (7.5-11.1) 12/11/19 12:30 Sodium 137 mmol/L (136-145) 12/11/19 12:30 Potassium 4.0 mmol/L (3.5-5.1) 12/11/19 12:30 Chloride 106 mmol/L (98-107) 12/11/19 12:30 Carbon Dioxide 23 mmol/L (21-32) 12/11/19 12:30 Anion Gap 8 MMOL/L (8-16) 12/11/19 12:30 BUN 5.6 mg/dL (7-18) L 12/11/19 12:30 Creatinine 0.7 mg/dL (0.55-1.3) 12/11/19 12:30 Est GFR (CKD-EPI)AfAm 118.74 12/11/19 12:30 Est GFR (CKD-EPI)NonAf 102.45 12/11/19 12:30 Random Glucose 75 mg/dL (74-106) 12/11/19 12:30 Calcium 9.0 mg/dL (8.5-10.1) 12/11/19 12:30 Total Bilirubin 0.6 mg/dL (0.2-1) 12/11/19 12:30 AST 43 U/L (15-37) H 12/11/19 12:30 ALT 58 U/L (13-61) 12/11/19 12:30 Alkaline Phosphatase 91 U/L (45-117) 12/11/19 12:30 Total Protein 8.2 g/dl (6.4-8.2) 12/11/19 12:30 Albumin 4.2 g/dl (3.4-5.0) 12/11/19 12:30 RPR Titer Nonreactive (NONREACTIVE) 12/11/19 12:30 Assessment: 12/13/19 15:37 Patient Aox3 no acute distress EENT WNL Full ROM no gait disturbance withdrawal sx Plan: If stable may d/c in AM after AM dose of Ativan, patient requested early d/c d/ t personal commitments at home increase fluids continue detox continue to monitor
[2019-12-13 13:35] VITALS: BP 122/86; PULSE 85; TEMP 97.8
--- NOTE | 2019-12-13 15:36 | PN ---
[facility] CIWA - CIWA Score Nausea/Vomitin Muscle Tremors: 2 Anxiety: 3 Agitation: 0-Normal Activity Paroxysmal Sweats: 2 Orientation: 0-Oriented Tacttile Disturbances: 0-None Auditory Disturbances: 0-None Visual Disturbances: 1-Very Mild Sensitivity Headache: 2-Mild CIWA-Ar Total Score: 13 BHS Progress Note (SOAP) Subjective: c/o of interrupted sleep, chills, headache Objective: 12/13/19 15:34 Vital Signs (72 hours) 12/11/19 12/11/19 12/11/19 10:58 13:12 17:38 Temperature 98.9 F 98.2 F 98.8 F Pulse Rate 104 H 97 H 105 H Respiratory 18 18 17 Rate Blood Pressure 176/94 H 158/96 147/92 12/11/19 12/12/19 12/12/19 21:37 00:30 03:30 Temperature 98.7 F Pulse Rate 91 H Respiratory 18 18 18 Rate Blood Pressure 143/87 12/12/19 12/12/19 12/12/19 07:29 09:27 13:42 Temperature 97.2 F L 98.0 F 97.2 F L Pulse Rate 69 80 83 Respiratory 16 18 18 Rate Blood Pressure 106/61 121/84 128/85 Labs pending Assessment: 12/13/19 15:35 Patient Aox3 no acute distress EENT WNL FULL ROM no gait disturbance withdrawal sx Plan: increase fluids continue detox
--- NOTE | 2019-12-13 15:54 | DS ---
[facility] Detox Discharge Summary Admission Date: 12/11/19 Discharge Date: 12/13/19 - History Present History: Alcohol Dependence - Physical Exam Results Vital Signs: Vital Signs Temperature 97.8 F 12/13/19 13:34 Pulse Rate 85 12/13/19 13:34 Respiratory Rate 18 12/13/19 13:34 Blood Pressure 122/86 12/13/19 13:34 O2 Sat by Pulse Oximetry (%) - Medication Discharge Medications: Ambulatory Orders NK [No Known Home Medication] 12/11/19 - AMA Did Patient Leave Against Medical Advice: Yes
--- NOTE | 2019-12-13 15:59 | PN ---
[facility] Progress Note Note: INFORMED BY STAFF PATIENT WANTS TO SIGN OUT AMA. 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 RACE CAR DRIVER ENCOURAGED PATIENT TO STAY IN TREATMENT BUT SHE REFUSED. EXPLAINED RISK FACTORS OF REOCCURRENCE OF ALCOHOL USE AND WORSENING OF WITHDRAWAL SX WITH SIGNING OUT AMA BUT SHE REFUSED TO STAY. SHE DENIES SI/HI AT THIS TIME. PATIENT MEDICALLY ADVISED TO SEEK MEDICAL ATTENTION /CALL 911 IF TREMORS, SWEATING AND/OR SEIZURES OCCUR. PATIENT SIGNED OUT AMA DESPITE INTERVENTIONS BY STAFF. Vital Signs Temperature 97.8 F 12/13/19 13:34 Pulse Rate 85 12/13/19 13:34 Respiratory Rate 18 12/13/19 13:34 Blood Pressure 122/86 12/13/19 13:34 O2 Sat by Pulse Oximetry (%)
[2019-12-14] MEDS ORDERED: LORazepam 0.5 MG TABLET PO PRN
[2019-12-14] MEDS ORDERED: LORazepam 0.5 MG TABLET PO SCH (05:00)
[2019-12-15] MEDS ORDERED: LORazepam 0.5 MG TABLET PO ONE (05:00)
== END 2019-12-13 15:51 | disposition left against medical advice (07) | DRG 770 ==
LOC: YASAS 10:50 → Y3N 12:16
PROVIDERS: ADMIT Allergy & Immunology; ATTEND Allergy & Immunology
PROC: HZ2ZZZZ Detoxification Services for Substance Abuse Treatment (ICD-10-PCS; principal; 2019-12-11)
DX: F10.230 Alcohol dependence with withdrawal, uncomplicated (principal); F17.210 Nicotine dependence, cigarettes, uncomplicated; F43.10 Post-traumatic stress disorder, unspecified; F33.9 Major depressive disorder, recurrent, unspecified; F41.0 Panic disorder [episodic paroxysmal anxiety]; I10 Essential (primary) hypertension; L93.0 Discoid lupus erythematosus; Z88.1 Allergy status to other antibiotic agents; Z88.8 Allergy status to other drugs, medicaments and biological substances; Z59.0 Homelessness
CPT/HCPCS: 36415; 80053; 85027; 86593

== ENCOUNTER 2020-06-14 20:42 | Inpatient (IN) | payer OTHER ==
[2020-06-14 21:04] VITALS: BMI 26.6
--- NOTE | 2020-06-14 21:10 | HP ---
CIWA Score Nausea/Vomitin-Cont. Nausea/Vomiting Muscle Tremors: 4-Moderate,w/Arms Extend Anxiety: 4-Mod. Anxious/Guarded Agitation: 4-Moderately Restless Paroxysmal Sweats: 3 Orientation: 2-Disoriented Date<2 days Tacttile Disturbances: 0-None Auditory Disturbances: 0-None Visual Disturbances: 0-None Headache: 3-Moderate CIWA-Ar Total Score: 27 - Admission Criteria OASAS Guidelines: Admission for Medically Managed Detox: Requires at least one of the followin. CIWA greater than 12 2. Seizures within the past 24 hours 3. Delirium tremens within the past 24 hours 4. Hallucinations within the past 24 hours 5. Acute intervention needed for co occurring medical disorder 6. Acute intervention needed for co occurring psychiatric disorder 7. Severe withdrawal that cannot be handled at a lower level of care (continued vomiting, continued diarrhea, abnormal vital signs) requiring intravenous medication and/or fluids 8. Patient presents the following: Severe withdrawal requiring intravenous medication and/or fluids (client was stabilized at [facility] today after presenting there with withdrawal sx's. to include n/v, depression shakes and sweats. 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 seeking alcohol detox Allergies/Adverse Reactions: Allergies Allergy/AdvReac Type Severity Reaction Status Date / Time azithromycin Allergy Intermediate Hives Verified 06/14/20 21:02 chlordiazepoxide Allergy Intermediate Hives Verified 06/14/20 21:02 [From Librium] History of Present Illness: HERE FOR ALCOHOL DETOX. CLIENT IS REFERRED BY [facility] AFTER SEEKING HELP THERE EARLIER FOR WITHDRAWAL SX'S. SHE IS KNOWN TO THIS PROGRAM. LAST HERE 1 MON TH AGO. SHE REPORTS RELAPSING RIGHT AFTER DC. REPORTS DAILY ALCOHOL INTAKE. LAST BEING 5 HOURS AGO. DENIES BLACK OUTS/ SEIZURES, AVH. DENIES ANY OTHER SUBSTANCE OF ABUSE. DENIES ANY SIGNIFICANT PERIOD OF CLEAN TIME IN THE PAST 12 MONTHS. LIVES IN A DROP IN [place], UNEMPLOYED, DENIES LEGALS Exam Limitations: No Limitations - Ebola screening Have you traveled outside of the country in the last 21 days: No Have you had contact with anyone from an Ebola affected area: No Have you been sick,other than usual withdrawal symptoms: No Do you have a fever: No - Review of Systems Constitutional: Chills, Night Sweats EENT: reports: No Symptoms Reported Respiratory: reports: No Symptoms reported Cardiac: reports: No Symptoms Reported GI: reports: Diarrhea, Nausea, Poor Appetite, Poor Fluid Intake, Abdominal cramping : reports: No Symptoms Reported Musculoskeletal: reports: No Symptoms Reported Integumentary: reports: Flushing, Rash (UNDER BREAST), Sweating Neuro: reports: Headache, Tremors Endocrine: reports: No Symptoms Reported Hematology: reports: No Symptoms Reported Psychiatric: reports: Anxious, Depressed (DENIES SI), other (CRYING) Other Systems: Reviewed and Negative Patient History - Patient Medical History Hx Anemia: No Hx Asthma: No Hx Chronic Obstructive Pulmonary Disease (COPD): No Hx Cancer: No Hx Cardiac Disorders: No Hx Congestive Heart Failure: No Hx Hypertension: Yes (NO COMPLAINT WITH MEDS) Hx Pacemaker: No HX Cerebrovascular Accident: No Hx Seizures: No Hx Dementia: No Hx Diabetes: No Hx Gastrointestinal Disorders: No Hx Liver Disease: No Hx Genitourinary Disorders: No Hx Sexually Transmitted Disorders: No Hx Renal Disease (ESRD): No Hx Thyroid Disease: No Hx Human Immunodeficiency Virus (HIV): No Hx Hepatitis C: No Hx Depression: Yes (NON COMPLAINT W/ LEXAPRO) Hx Suicide Attempt: No Hx Schizophrenia: No Other Medical History: LUPUS - Patient Surgical History Past Surgical History: Yes Hx Neurologic Surgery: No Hx Cataract Extraction: No Hx Cardiac Surgery: No Hx Lung Surgery: No Hx Breast Surgery: No Hx Breast Biopsy: No Hx Abdominal Surgery: No Hx Appendectomy: No Hx Cholecystectomy: No Hx Genitourinary Surgery: No Hx Section: No Hx Orthopedic Surgery: Yes (R elbow fx reconstructive sx.) Anesthesia Reaction: No - PPD History Previous Implant?: Yes Documented Results: Negative w/proof Implanted On Prior R Admission?: Yes Date: 08/17/19 Results: 0mm PPD to be Administered?: No - Reproductive History Patient is a Female of Child Bearing Age (11 -55 yrs old): Yes Last Menstrual Period: 06/20/19 Patient : No ([facility]) - Smoking Cessation Smoking history: Current every day smoker Have you smoked in the past 12 months: Yes Aproximately how many cigarettes per day: 15 Cigars Per Day: 0 Hx Chewing Tobacco Use: No Initiated information on smoking cessation: Yes 'Breaking Loose' booklet given: 06/14/20 - Substance & Tx. History Hx Alcohol Use: Yes Hx Substance Use: Yes Substance Use Type: Alcohol Hx Substance Use Treatment: No ([facility]) - Substances abused Alcohol Other (specify): BEER Substance route: Oral Frequency: Daily Amount used: 5- 24OZ CANS Age of first use: 42 Date of last use: 06/14/20 Admission Physical Exam [facility] - Vital Signs Vital Signs: Vital Signs - 24 hr 06/14/20 21:01 Temperature 97 F L Pulse Rate 87 Respiratory 18 Rate Blood Pressure 125/82 - Physical General Appearance: Yes: Moderate Distress, Tremorous, Sweating, Anxious, Other (CRYING/ DEPRESSED, DENIES SI. MISSES HER 14 Y.O DAUGHTER) HEENTM: Yes: EOMI, Normocephalic, Normal Voice, VALORIE, Pharynx Normal, Other (TONGUE FASICULATIONS, DRY MUCUS MEMBRANES) Respiratory: Yes: Chest Non-Tender, Lungs Clear, Normal Breath Sounds, No Respiratory Distress, No Accessory Muscle Use Neck: Yes: No masses,lesions,Nodules, Supple, Trachea in good position Breast: Yes: Within Normal Limits, Breasts Symetrical Cardiology: Yes: Regular Rhythm, Regular Rate, S1, S2 Abdominal: Yes: Non Tender, Soft, Increased Bowel Sounds Genitourinary: Yes: Within Normal Limits (NO C/O) Back: Yes: Normal Inspection Musculoskeletal: Yes: full range of Motion, Gait Steady Extremities: Yes: Normal Capillary Refill, Normal Range of Motion, Non-Tender, Tremors Neurological: Yes: Alert, Motor Strength 5/5, Depressed Affect Integumentary: Yes: Warm, Rash (ERYTHAMTOUS RASH NOTED UNDER BREAST, REPORTS ITCHING BURNING), Other (SUNBURNED SKIN IRRITATED SKIN WITH SUPERFICIAL SCABBING FROM PATIENT SCRATCHING -RASH TO BOTH ARMS) Lymphatic: Yes: Within Normal Limits - Diagnostic (1) Alcohol dependence with withdrawal, uncomplicated Current Visit: Yes Status: Acute (2) Alcohol-induced anxiety disorder Current Visit: Yes Status: Suspected (3) Alcohol-induced mood disorder Current Visit: Yes Status: Suspected (4) Alcohol-induced sleep disorder Current Visit: Yes Status: Suspected (5) HTN (hypertension) Current Visit: Yes Status: Chronic Qualifiers: Hypertension type: essential hypertension Qualified Code(s): I10 - Essential (primary) hypertension (6) Nicotine dependence Current Visit: Yes Status: Chronic Qualifiers: Nicotine product type: cigarettes Substance use status: uncomplicated Qualified Code(s): F17.210 - Nicotine dependence, cigarettes, uncomplicated (7) Sunburn Current Visit: Yes Status: Acute (8) Non compliance w medication regimen Current Visit: Yes Status: Acute (9) Dry mucous membranes Current Visit: Yes Status: Acute (10) Fasciculation of tongue Current Visit: Yes Status: Acute (11) At risk for dehydration due to poor fluid intake Current Visit: Yes Status: Acute (12) Depressed affect Current Visit: Yes Status: Acute (13) Lupus Current Visit: Yes Status: Chronic (14) Candidiasis, intertrigo Current Visit: Yes Status: Acute Comment: under breast Cleared for Admission S - Detox or Rehab [facility] Level of Care: Medically Managed Detox Regimen/Protocol: Ativan Claeared for Rehab Admission: No Breathalyzer - Breathalyzer Breathalyzer: 0.090 Urine Drug Screen - Test Device Lot number: [id number] Expiration date: 07/19/21 - Control Is test valid?: Yes - Results Drug screen NEGATIVE: No Urine drug screen results: ANT-Cocaine Inpatient Rehab Admission - Rehab Decision to Admit Inpatient rehab admission?: No
[2020-06-14] MEDS ORDERED: DICYCLOMINE HCL 10 MG CAPSULE PO PRN (21:23)
[2020-06-14] MEDS ORDERED: MAGNESIUM CITRATE 300 ML BOTTLE PO PRN (21:23)
[2020-06-14] MEDS ORDERED: IBUPROFEN 400 MG TABLET (FP) PO PRN (21:23)
[2020-06-14] MEDS ORDERED: guaiFENesin 200 MG/10 ML 10 ML UNIT-DOSE CUPS PO PRN (21:23)
[2020-06-14] MEDS ORDERED: MAGNESIUM HYDROX 2400MG/30ML ORAL SUSPENSION 30 ML CUP PO PRN (21:23)
[2020-06-14] MEDS ORDERED: ACETAMINOPHEN 325 MG TABLET (FP) PO PRN ×2 (21:23)
[2020-06-14] MEDS ORDERED: MENTHOL/PHENOL 1 EACH UD MM PRN (21:23)
[2020-06-14] MEDS ORDERED: BISMUTH SUBSALICYLATE 524 MG/30 ML UD PO PRN (21:23)
[2020-06-14] MEDS ORDERED: METHOCARBAMOL 500 MG TABLET PO PRN (21:23)
[2020-06-14] MEDS ORDERED: LORazepam 1 MG TABLET PO PRN (21:23)
[2020-06-14] MEDS ORDERED: ONDANSETRON *ODT* 4 MG TABLET SL ONE (21:23)
[2020-06-14] MEDS ORDERED: P-EPHED 60MG/TRIPROLIDI 2.5MG TABLET PO PRN (21:23)
[2020-06-14] MEDS ORDERED: MAG HYDROX/AL HYDROX/SIMETH 30 ML UNIT-DOSE CUP PO PRN (21:23)
[2020-06-14] MEDS: hydrOXYzine PAMOATE 25 MG CAPSULE (FP) PO SCH (22:45)
[2020-06-14] MEDS: THIAMINE HCL 100 MG TABLET (FP) PO SCH (22:45)
[2020-06-14] MEDS: LORazepam 2 MG TABLET PO SCH ×2 (22:45→22:49)
[2020-06-14] MEDS: MELATONIN 5 MG TABLETS PO SCH (22:49)
[2020-06-14] MEDS: NYSTATIN POWDER 100,000 UNITS/GM - 15 GM TOPICAL POWDER TP SCH (22:49)
[2020-06-15] MEDS: LORazepam 2 MG TABLET PO SCH ×4 (06:12→22:17)
[2020-06-15] MEDS: hydrOXYzine PAMOATE 25 MG CAPSULE (FP) PO SCH ×5 (06:12→22:17)
--- NOTE | 2020-06-15 08:48 | PN ---
[facility] CIWA - CIWA Score Nausea/Vomitin-Mild Nausea/No Vomiting Muscle Tremors: 4-Moderate,w/Arms Extend Anxiety: 4-Mod. Anxious/Guarded Agitation: 3 Paroxysmal Sweats: 3 Orientation: 2-Disoriented Date<2 days (date of week) Tacttile Disturbances: 1-Very Mild Itch/Numbness Auditory Disturbances: 0-None Visual Disturbances: 2-Mild Sensitivity Headache: 2-Mild CIWA-Ar Total Score: 22 S Progress Note (SOAP) Subjective: 50 years old female admitted on 06/14/20 for alcohol withdrawal sx management treating with Ativan detox regiment medical history of hypertension treated with lisinopril 10 mg po daily Vital Signs - 24 hr 06/14/20 06/14/20 06/15/20 21:01 21:45 05:58 Temperature 97 F L 97 F L 97.5 F L Pulse Rate 87 87 76 Respiratory 18 18 18 Rate Blood Pressure 125/82 125/82 108/69 O2 Sat by Pulse 99 Oximetry (%) set parameter for lisinopril administration long history of rectum hemorrhoid itchy and discomfort while defecating hydrocortison 1% prn Objective: 06/15/20 08:52 Vital Signs - 24 hr 06/14/20 06/14/20 06/15/20 21:01 21:45 05:58 Temperature 97 F L 97 F L 97.5 F L Pulse Rate 87 87 76 Respiratory 18 18 18 Rate Blood Pressure 125/82 125/82 108/69 O2 Sat by Pulse 99 Oximetry (%) 06/15/20 08:52 lab pending Assessment: 06/15/20 08:52 alcohol withdrawal hypertension rectum hemorrhoid Plan: ativan regiment lisniopril hydrocortison cream 1%
[2020-06-15] MEDS ORDERED: LISINOPRIL 10 MG TABLET (FP) PO SCH (10:00)
[2020-06-15] MEDS: NICOTINE 21 MG/24 HOURS TOPICAL PATCH TD SCH (10:15)
[2020-06-15] MEDS: NYSTATIN POWDER 100,000 UNITS/GM - 15 GM TOPICAL POWDER TP SCH ×2 (10:15→22:21)
[2020-06-15] MEDS: PRENATAL VITAMINS W/ FOLIC ACID TABLET (FP) PO SCH (10:16)
[2020-06-15] MEDS: LISINOPRIL 10 MG TABLET (FP) PO SCH (10:17)
--- NOTE | 2020-06-15 10:57 | CONSULT ---
[facility] Psychiatric Consult - Data Date of interview: 06/15/20 Admission source: [facility] Identifying data: Revisit to [facility] and admission to [address] [place] [address] for this 50 y/o female self-referred for detoxification treatment. ROGER issues : alcohol, nicotine. Patient is single, mother of one, undomiciled, unemployed and supported on food stamps. Substance Abuse History: Discussed with the patient. ROGER profile as follows : Smoking history: Current every day smoker. Have you smoked in the past 12 months: Yes. Aproximately how many cigarettes per day: 15. Cigars Per Day: 0. Hx Chewing Tobacco Use: No. Initiated information on smoking cessation: Yes. 'Breaking Loose' booklet given: 06/14/20. - Substance & Tx. History. Hx Alcohol Use: Yes. Hx Substance Use: Yes. Substance Use Type: Alcohol. Hx Substance Use Treatment: No ([facility]). - Substances abused. Alcohol. Other (specify): BEER. Substance route: Oral. Frequency: Daily. Amount used: 5- 24OZ CANS. Age of first use: 42. Date of last use: 06/14/20 Medical History: Medical profile is remarkable for hypertension, discoid lupus erythematosus and orthosurgery for reconstruction of right elbow (1995). Psychiatric History: Onset of emotional disturbances leading to first contact with a psychiatrist : 2005 (circumstance : of father by suicide). Patient got diagnosed with MDD and PTSD. She initiated treatment with escitalopram. Sporadic adherence to medications. Ms Gan endorses a history of two psychiatric hospitalizations ([facility]). Last admitted in April 2019. Discharged on lexapro 20 mg/day and referred to [facility] mental health clinic. Patient, in this interview, declares total non-adherence to psychiatric aftercare for past 7-9 months. Stopped psychopharmacotherapy. Patient denies history of suicide attempts. Physical/Sexual Abuse/Trauma History: Severe trauma : father committed suicide in 2005. Additional Comment: Urine drug screen results: ANT-Cocaine. Noted. Mental Status Exam - Mental Status Exam Alert and Oriented to: Time, Place, Person Cognitive Function: Good Patient Appearance: Disheveled Mood: Nervous, Withdrawn, Irritable Affect: Mood Congruent, Constricted Patient Behavior: Appropriate, Cooperative Speech Pattern: Clear, Appropriate Voice Loudness: Normal Thought Process: Intact, Goal Oriented Thought Disorder: Not Present Hallucinations: Denies Suicidal Ideation: Denies Homicidal Ideation: Denies Insight/Judgement: Poor Sleep: Poorly, Difficulty falling asleep Appetite: Fair Gait/Station: Normal Psychiatric Findings - Problem List ([place] 1, 2,3) (1) Alcohol dependence with withdrawal, uncomplicated Current Visit: Yes Status: Acute (2) Nicotine dependence Current Visit: Yes Status: Chronic Qualifiers: Nicotine product type: cigarettes Substance use status: uncomplicated Qualified Code(s): F17.210 - Nicotine dependence, cigarettes, uncomplicated (3) Alcohol-induced mood disorder Current Visit: Yes Status: Chronic (4) MDD (major depressive disorder), recurrent episode Current Visit: Yes Status: Chronic (5) PTSD (post-traumatic stress disorder) Current Visit: Yes Status: Chronic (6) Insomnia Current Visit: Yes Status: Chronic (7) Non compliance w medication regimen Current Visit: Yes Status: Chronic - Initial Treatment Plan Initial Treatment Plan: Psychoeducation. Sleep hygiene. Support and empathy. Detoxification. Patient requests the inclusion of escitalopram in her current r egimen of medications. Lexapro 10 mg po daily. Side effects/benefits discussed with the patient. Informed consent (verbal) granted to MD. Louis
[2020-06-15 11:49] LABS: HEMATOCRIT 38.5 % (32.4-45.2); HEMOGLOBIN 12.8 GM/dL (10.7-15.3); MCH 33.6 pg (25.7-33.7); MCHC 33.2 g/dl (32.0-36.0); MEAN CELL VOLUME 101.3 fl (80-96); MEAN PLT VOLUME 10.8 fl (7.5-11.1); PLATELET COUNT 114 K/MM3 (134-434); RDW 14.8 % (11.6-15.6); WHITE BLOOD COUNT 5.5 K/mm3 (4.0-10.0)
[2020-06-15 11:58] LABS: ALBUMIN 3.2 g/dl (3.4-5.0); BILIRUBIN,TOTAL 0.5 mg/dL (0.2-1); BLOOD UREA NITROGEN 8.2 mg/dL (7-18); CALCIUM 8.5 mg/dL (8.5-10.1); CREATININE 0.8 mg/dL (0.55-1.3); POTASSIUM 3.8 mmol/L (3.5-5.1); TOT PROT 6.9 g/dl (6.4-8.2)
[2020-06-15 16:47] LABS: EPI CELLS >36 /uL (0-25.1); HYALINE CASTS 4 /uL (0-3.1); URINE APPEARANCE CLOUDY; URINE BACTERIA 1910 /uL (0-1359); URINE BILIRUBIN NEGATIVE (NEGATIVE); URINE COLOR YELLOW; URINE GLUCOSE (UA) NEGATIVE (NEGATIVE); URINE KETONE NEGATIVE (NEGATIVE); URINE LEUK ESTERASE 1+ (NEGATIVE); URINE NITRITE NEGATIVE (NEGATIVE); URINE PROTEIN NEGATIVE (NEGATIVE); URINE RBC 9 /uL (0-23.9); URINE UROBILINOGEN 0.2 mg/dL (0.2-1.0); URINE WBC 280 /uL (0-25.8)
[2020-06-15] MEDS: NICOTINE POLACRILEX 2 MG GUM BUC PRN ×2 (17:19→22:22)
[2020-06-15 18:55] LABS: URINE CRYSTALS MANY /hpf
[2020-06-15] MEDS: MELATONIN 5 MG TABLETS PO SCH (22:17)
[2020-06-15] MEDS: THIAMINE HCL 100 MG TABLET (FP) PO SCH (22:17)
[2020-06-16] MEDS: hydrOXYzine PAMOATE 25 MG CAPSULE (FP) PO SCH ×5 (06:04→22:03)
[2020-06-16] MEDS: LORazepam 1 MG TABLET PO SCH ×4 (06:04→22:03)
[2020-06-16] MEDS: NICOTINE POLACRILEX 2 MG GUM BUC PRN ×4 (08:32→22:08)
--- NOTE | 2020-06-16 09:20 | PN ---
S CIWA - CIWA Score Nausea/Vomitin-Mild Nausea/No Vomiting Muscle Tremors: 3 Anxiety: 4-Mod. Anxious/Guarded Agitation: 1-Slight > Activity Paroxysmal Sweats: 2 Orientation: 1-Uncertain about Date (date of week) Tacttile Disturbances: 1-Very Mild Itch/Numbness Auditory Disturbances: 0-None Visual Disturbances: 2-Mild Sensitivity Headache: 2-Mild CIWA-Ar Total Score: 17 BHS Progress Note (SOAP) Subjective: 50 years old female admitted on 06/14/20 for alcohol withdrawal sx management treating with ativan detox regiment seen by psychiatrist elayne adam feeling better today ate breakfast in room less tremor mild muscle aches less irritable encourage ms martin to discuss aftercare with the staff Objective: 06/16/20 09:21 Vital Signs - 24 hr 06/15/20 06/15/20 06/15/20 12:59 16:48 20:42 Temperature 97.8 F 97.1 F L 97.5 F L Pulse Rate 66 69 68 Respiratory 18 18 18 Rate Blood Pressure 99/61 123/77 127/80 O2 Sat by Pulse 99 99 99 Oximetry (%) 06/16/20 06/16/20 06:48 08:42 Temperature 97.6 F 97.5 F L Pulse Rate 59 L 67 Respiratory 18 18 Rate Blood Pressure 118/73 116/67 O2 Sat by Pulse 99 99 Oximetry (%) Laboratory Tests 06/14/20 06/14/20 06/15/20 21:04 21:17 08:00 WBC 5.5 RBC 3.80 Hgb 12.8 Hct 38.5 MCV 101.3 H MCH 33.6 MCHC 33.2 RDW 14.8 Plt Count 114 L D MPV 10.8 Sodium Potassium Chloride Carbon Dioxide Anion Gap BUN Creatinine Est GFR (CKD-EPI)AfAm Est GFR (CKD-EPI)NonAf Random Glucose Calcium Total Bilirubin AST ALT Alkaline Phosphatase Total Protein Albumin Urine Color Urine Appearance Urine pH Ur Specific [place] Urine Protein Urine Glucose (UA) Urine Ketones Urine Blood Urine Nitrite Urine Bilirubin Urine Urobilinogen Ur Leukocyte Esterase Urine WBC (Auto) Urine RBC (Auto) Urine Casts (Auto) U Epithel Cells (Auto) Urine Crystals (Auto) Urine Bacteria (Auto) POC Urine HCG, Qual Negative COVID-19 (REGI) Not detected 06/15/20 06/15/20 08:30 10:45 WBC RBC Hgb Hct MCV MCH MCHC RDW Plt Count MPV Sodium 142 Potassium 3.8 Chloride 109 H Carbon Dioxide 24 Anion Gap 9 BUN 8.2 Creatinine 0.8 Est GFR (CKD-EPI)AfAm 100.33 Est GFR (CKD-EPI)NonAf 86.57 Random Glucose 93 Calcium 8.5 Total Bilirubin 0.5 AST 43 H ALT 76 H Alkaline Phosphatase 83 Total Protein 6.9 Albumin 3.2 L Urine Color Yellow Urine Appearance Cloudy Urine pH 5.0 Ur Specific [place] 1.021 Urine Protein Negative Urine Glucose (UA) Negative Urine Ketones Negative Urine Blood Trace Urine Nitrite Negative Urine Bilirubin Negative Urine Urobilinogen 0.2 Ur Leukocyte Esterase 1+ H Urine WBC (Auto) 280 Urine RBC (Auto) 9 Urine Casts (Auto) 4 U Epithel Cells (Auto) >36 Urine Crystals (Auto) Many Urine Bacteria (Auto) 1910 POC Urine HCG, Qual COVID-19 (REGI) uti denies burning and frequency while urination bactrim ds bid x 5 days 06/16/20 09:24 bp within acceptable range lisinopril appears working well Assessment: 06/16/20 09:24 alcohol withdrawal 06/16/20 09:25 uti Plan: ativan regiment bactrim ds po bid x 5 days last dose 06/21/20
[2020-06-16] MEDS: ESCITALOPRAM OXALATE 10 MG TABLET PO SCH (10:17)
[2020-06-16] MEDS: SULFAMETHOXAZOLE/TRIMETHOPRIM 800MG/160MG D.S. TABLET PO SCH ×2 (10:17→22:04)
[2020-06-16] MEDS: PRENATAL VITAMINS W/ FOLIC ACID TABLET (FP) PO SCH (10:18)
[2020-06-16] MEDS: NICOTINE 21 MG/24 HOURS TOPICAL PATCH TD SCH (10:18)
[2020-06-16] MEDS: HYDROCORTISONE 1% TOPICAL CREAM 30 GM TUBE TP PRN (10:20)
[2020-06-16] MEDS: NYSTATIN POWDER 100,000 UNITS/GM - 15 GM TOPICAL POWDER TP SCH ×2 (10:20→22:09)
[2020-06-16] MEDS: LISINOPRIL 10 MG TABLET (FP) PO SCH (10:21)
[2020-06-16] MEDS: THIAMINE HCL 100 MG TABLET (FP) PO SCH (22:03)
[2020-06-16] MEDS: MELATONIN 5 MG TABLETS PO SCH (22:04)
[2020-06-17] MEDS ORDERED: LORazepam 0.5 MG TABLET PO PRN
[2020-06-17] MEDS: hydrOXYzine PAMOATE 25 MG CAPSULE (FP) PO SCH ×2 (05:52→10:30)
[2020-06-17] MEDS: LORazepam 0.5 MG TABLET PO SCH ×2 (05:53→10:30)
[2020-06-17 09:10] VITALS: BP 131/68; PULSE 67; TEMP 97.2
[2020-06-17] MEDS: SULFAMETHOXAZOLE/TRIMETHOPRIM 800MG/160MG D.S. TABLET PO SCH (10:30)
[2020-06-17] MEDS: NYSTATIN POWDER 100,000 UNITS/GM - 15 GM TOPICAL POWDER TP SCH (10:30)
[2020-06-17] MEDS: ESCITALOPRAM OXALATE 10 MG TABLET PO SCH (10:30)
[2020-06-17] MEDS: HYDROCORTISONE 1% TOPICAL CREAM 30 GM TUBE TP PRN (10:30)
[2020-06-17] MEDS: LISINOPRIL 10 MG TABLET (FP) PO SCH (10:30)
[2020-06-17] MEDS: NICOTINE 21 MG/24 HOURS TOPICAL PATCH TD SCH (10:30)
[2020-06-17] MEDS: PRENATAL VITAMINS W/ FOLIC ACID TABLET (FP) PO SCH (10:31)
[2020-06-17] MEDS: NICOTINE POLACRILEX 2 MG GUM BUC PRN (10:33)
[2020-06-17] MEDS ORDERED: LOPERAMIDE HCL 2 MG CAPSULE PO ONE ×2 (11:46)
--- NOTE | 2020-06-17 11:50 | PN ---
S CIWA - CIWA Score Nausea/Vomitin-Mild Nausea/No Vomiting Muscle Tremors: 3 Anxiety: 3 Agitation: 1-Slight > Activity Paroxysmal Sweats: 2 Orientation: 0-Oriented Tacttile Disturbances: 1-Very Mild Itch/Numbness Auditory Disturbances: 0-None Visual Disturbances: 1-Very Mild Sensitivity Headache: 0-None Present CIWA-Ar Total Score: 12 BHS Progress Note (SOAP) Subjective: 50 years old female admitted on 06/14/20 for alcohol withdrawal sx management treating with ativan detox regiment feeling better today but tired reports loose stool x 1 after breakfast imodium 8 mg po x 1 Objective: 06/17/20 11:49 Vital Signs - 24 hr 06/16/20 06/16/20 06/16/20 12:45 16:28 21:28 Temperature 96.2 F L 96.8 F L 97.7 F Pulse Rate 64 60 61 Respiratory 18 18 18 Rate Blood Pressure 115/70 108/79 141/87 O2 Sat by Pulse 99 99 Oximetry (%) 06/17/20 06/17/20 06:06 08:56 Temperature 97.7 F 97.2 F L Pulse Rate 51 L 67 Respiratory 18 18 Rate Blood Pressure 109/68 131/68 O2 Sat by Pulse 98 Oximetry (%) Laboratory Tests 06/14/20 06/14/20 06/15/20 21:04 21:17 08:00 WBC 5.5 RBC 3.80 Hgb 12.8 Hct 38.5 MCV 101.3 H MCH 33.6 MCHC 33.2 RDW 14.8 Plt Count 114 L D MPV 10.8 Sodium Potassium Chloride Carbon Dioxide Anion Gap BUN Creatinine Est GFR (CKD-EPI)AfAm Est GFR (CKD-EPI)NonAf Random Glucose Calcium Total Bilirubin AST ALT Alkaline Phosphatase Total Protein Albumin Urine Color Urine Appearance Urine pH Ur Specific [place] Urine Protein Urine Glucose (UA) Urine Ketones Urine Blood Urine Nitrite Urine Bilirubin Urine Urobilinogen Ur Leukocyte Esterase Urine WBC (Auto) Urine RBC (Auto) Urine Casts (Auto) U Epithel Cells (Auto) Urine Crystals (Auto) Urine Bacteria (Auto) POC Urine HCG, Qual Negative COVID-19 (REGI) Not detected 06/15/20 06/15/20 08:30 10:45 WBC RBC Hgb Hct MCV MCH MCHC RDW Plt Count MPV Sodium 142 Potassium 3.8 Chloride 109 H Carbon Dioxide 24 Anion Gap 9 BUN 8.2 Creatinine 0.8 Est GFR (CKD-EPI)AfAm 100.33 Est GFR (CKD-EPI)NonAf 86.57 Random Glucose 93 Calcium 8.5 Total Bilirubin 0.5 AST 43 H ALT 76 H Alkaline Phosphatase 83 Total Protein 6.9 Albumin 3.2 L Urine Color Yellow Urine Appearance Cloudy Urine pH 5.0 Ur Specific [place] 1.021 Urine Protein Negative Urine Glucose (UA) Negative Urine Ketones Negative Urine Blood Trace Urine Nitrite Negative Urine Bilirubin Negative Urine Urobilinogen 0.2 Ur Leukocyte Esterase 1+ H Urine WBC (Auto) 280 Urine RBC (Auto) 9 Urine Casts (Auto) 4 U Epithel Cells (Auto) >36 Urine Crystals (Auto) Many Urine Bacteria (Auto) 1910 POC Urine HCG, Qual COVID-19 (REGI) uti 06/17/20 11:50 continue bactrim ds bid Assessment: 06/17/20 11:50 alcohol withdrawal Plan: ativan regiment
--- NOTE | 2020-06-17 12:28 | DS ---
[facility] Detox Discharge Summary Admission Date: 06/14/20 Discharge Date: 06/17/20 - History Present History: Alcohol Dependence Additional Comments: 50 years old female admitted on 06/14/20 for alcohol withdrawal sx management treated with ativan detox regiment seen by psychiatrist elayne medina ms martin reports that she is feeling better today ate breakfast and lunch showered ms martin insists to leave the detox today and follow up with [facility] for alcohol recovery alert oriented x 3 speech clearly coherently ambulating with steady gaits received citroma on 06/16/20 for constipation encourage allow gi restore nature patterns respiratory clear lung sounds bilaterally on auscultation abdomen soft no rebound tenderness extremities full range of motion Pertinent Past History: time for discharge treatment team met with the patient to discuss the benefit of ativan regiment completion ms martin states that after lunch felt better prefers to leave the detox today for clothings and follow up with [facility] - Physical Exam Results Vital Signs: Vital Signs Temperature 97.2 F L 06/17/20 08:56 Pulse Rate 67 06/17/20 08:56 Respiratory Rate 18 06/17/20 08:56 Blood Pressure 131/68 06/17/20 08:56 O2 Sat by Pulse Oximetry (%) 98 06/17/20 06:06 Pertinent Admission Physical Exam Findings: alcohol withdrawal Laboratory Tests 06/14/20 06/14/20 06/15/20 21:04 21:17 08:00 WBC 5.5 RBC 3.80 Hgb 12.8 Hct 38.5 MCV 101.3 H MCH 33.6 MCHC 33.2 RDW 14.8 Plt Count 114 L D MPV 10.8 Sodium Potassium Chloride Carbon Dioxide Anion Gap BUN Creatinine Est GFR (CKD-EPI)AfAm Est GFR (CKD-EPI)NonAf Random Glucose Calcium Total Bilirubin AST ALT Alkaline Phosphatase Total Protein Albumin Urine Color Urine Appearance Urine pH Ur Specific [place] Urine Protein Urine Glucose (UA) Urine Ketones Urine Blood Urine Nitrite Urine Bilirubin Urine Urobilinogen Ur Leukocyte Esterase Urine WBC (Auto) Urine RBC (Auto) Urine Casts (Auto) U Epithel Cells (Auto) Urine Crystals (Auto) Urine Bacteria (Auto) POC Urine HCG, Qual Negative COVID-19 (REGI) Not detected 06/15/20 06/15/20 08:30 10:45 WBC RBC Hgb Hct MCV MCH MCHC RDW Plt Count MPV Sodium 142 Potassium 3.8 Chloride 109 H Carbon Dioxide 24 Anion Gap 9 BUN 8.2 Creatinine 0.8 Est GFR (CKD-EPI)AfAm 100.33 Est GFR (CKD-EPI)NonAf 86.57 Random Glucose 93 Calcium 8.5 Total Bilirubin 0.5 AST 43 H ALT 76 H Alkaline Phosphatase 83 Total Protein 6.9 Albumin 3.2 L Urine Color Yellow Urine Appearance Cloudy Urine pH 5.0 Ur Specific [place] 1.021 Urine Protein Negative Urine Glucose (UA) Negative Urine Ketones Negative Urine Blood Trace Urine Nitrite Negative Urine Bilirubin Negative Urine Urobilinogen 0.2 Ur Leukocyte Esterase 1+ H Urine WBC (Auto) 280 Urine RBC (Auto) 9 Urine Casts (Auto) 4 U Epithel Cells (Auto) >36 Urine Crystals (Auto) Many Urine Bacteria (Auto) 1910 POC Urine HCG, Qual COVID-19 (REGI) uti continue bactrim ds encourage ms martin to [employer] bactrim from pharmacy - Treatment Hospital Course: Detox Protocol Followed, Detoxed Safely, Responded well, Discha rged Condition Good, Rehab Referral Accepted Patient has Accepted a Rehab Referral to: [facility] - Medication Discharge Medications: Ambulatory Orders Escitalopram Oxalate [Lexapro -] 20 mg PO DAILY 06/14/20 Lisinopril [Prinivil] 10 mg PO DAILY 06/14/20 Sulfamethoxazole/Trimethoprim [Bactrim DS -] 1 each PO BID #10 tablet 06/17/20 - Diagnosis (1) Alcohol dependence with withdrawal, uncomplicated Status: Acute (2) UTI (urinary tract infection) Status: Chronic Qualifiers: Urinary tract infection type: site unspecified Hematuria presence: without hematuria Qualified Code(s): N39.0 - Urinary tract infection, site not specified (3) HTN (hypertension) Status: Chronic Qualifiers: Hypertension type: essential hypertension Qualified Code(s): I10 - Essential (primary) hypertension (4) Nicotine dependence Status: Acute Qualifiers: Nicotine product type: cigarettes Substance use status: in withdrawal Qualified Code(s): F17.213 - Nicotine dependence, cigarettes, with withdrawal - AMA Did Patient Leave Against Medical Advice: No CIWA Score - CIWA Score Nausea/Vomitin-No Nausea/No Vomiting Muscle Tremors: 3 Anxiety: 2 Agitation: 0-Normal Activity Paroxysmal Sweats: 1-Minimal Palms Moist Orientation: 0-Oriented Tacttile Disturbances: 1-Very Mild Itch/Numbness Auditory Disturbances: 0-None Visual Disturbances: 0-None Headache: 0-None Present CIWA-Ar Total Score: 7
[2020-06-18] MEDS ORDERED: LORazepam 0.5 MG TABLET PO ONE (05:00)
== END 2020-06-17 12:29 | disposition home or self-care (01) | DRG 775 ==
LOC: YASAS 20:42 → Y3N 21:14
PROVIDERS: ADMIT Allergy & Immunology; ATTEND Allergy & Immunology
PROC: HZ2ZZZZ Detoxification Services for Substance Abuse Treatment (ICD-10-PCS; principal; 2020-06-14)
DX: F10.230 Alcohol dependence with withdrawal, uncomplicated (principal); F17.210 Nicotine dependence, cigarettes, uncomplicated; F10.282 Alcohol dependence with alcohol-induced sleep disorder; F10.280 Alcohol dependence with alcohol-induced anxiety disorder; F10.24 Alcohol dependence with alcohol-induced mood disorder; F33.9 Major depressive disorder, recurrent, unspecified; F43.10 Post-traumatic stress disorder, unspecified; I10 Essential (primary) hypertension; L93.0 Discoid lupus erythematosus; N39.0 Urinary tract infection, site not specified; B37.2 Candidiasis of skin and nail; K59.00 Constipation, unspecified; K64.4 Residual hemorrhoidal skin tags; L55.9 Sunburn, unspecified; R63.8 Other symptoms and signs concerning food and fluid intake; R68.2 Dry mouth, unspecified; R25.3 Fasciculation; R45.89 Other symptoms and signs involving emotional state; Z91.14 Patient's other noncompliance with medication regimen; Z56.0 Unemployment, unspecified; Z59.0 Homelessness; Z88.1 Allergy status to other antibiotic agents; Z88.8 Allergy status to other drugs, medicaments and biological substances
CPT/HCPCS: 36415; 80053; 81003; 81025; 85027; Q0162; U0003

== ENCOUNTER 2020-08-04 13:43 | Inpatient (IN) | payer OTHER ==
--- NOTE | 2020-08-04 14:24 | BHS.RME ---
Substance Use & Tx History - Substance Use History Alcohol Substance amount: 3-4 maragarita cans Frequency of use: Daily Substance route: Oral Date of Last Use: 08/03/20 (started age 16) Physical/Psych/Mental Status - Behavior General Behavior: Increased activity (restlessness, agitation) Eye Contact: Normal - Cooperativeness Cooperativeness: Cooperative - Thinking Thought Processes: Tight, Logical, Goal Directed - Physical Health Problems Is patient presently having any pain?: No Does patient presently have any injuries (include location): No Does patient currently have a fever: No Is patient : No CIWA Nausea/Vomitin Muscle Tremors: 3 Anxiety: 3 Agitation: 2 Paroxysmal Sweats: 4-Forehead w/Sweat Beads Orientation: 1-Uncertain about Date Tacttile Disturbances: 2-Mild Itch/Numbness/Burn Auditory Disturbances: 0-None Visual Disturbances: 0-None Headache: 0-None Present CIWA-Ar Total Score: 18
[2020-08-04] MEDS ORDERED: LORazepam 1 MG TABLET PO PRN (15:11)
[2020-08-04] MEDS ORDERED: NICOTINE POLACRILEX 2 MG GUM BUC PRN (15:11)
[2020-08-04] MEDS ORDERED: ACETAMINOPHEN 325 MG TABLET (FP) PO PRN ×2 (15:11)
[2020-08-04] MEDS ORDERED: BISMUTH SUBSALICYLATE 524 MG/30 ML UD PO PRN (15:11)
[2020-08-04] MEDS ORDERED: MAG HYDROX/AL HYDROX/SIMETH 30 ML UNIT-DOSE CUP PO PRN (15:11)
[2020-08-04] MEDS ORDERED: METHOCARBAMOL 500 MG TABLET PO PRN (15:11)
[2020-08-04] MEDS ORDERED: IBUPROFEN 400 MG TABLET (FP) PO PRN (15:11)
[2020-08-04] MEDS ORDERED: MAGNESIUM CITRATE 300 ML BOTTLE PO PRN (15:11)
[2020-08-04] MEDS ORDERED: MAGNESIUM HYDROX 2400MG/30ML ORAL SUSPENSION 30 ML CUP PO PRN (15:11)
[2020-08-04] MEDS ORDERED: MENTHOL/PHENOL 1 EACH UD MM PRN (15:11)
--- NOTE | 2020-08-04 15:11 | HP ---
CIWA Score Nausea/Vomitin Muscle Tremors: 3 Anxiety: 3 Agitation: 2 Paroxysmal Sweats: 4-Forehead w/Sweat Beads Orientation: 1-Uncertain about Date Tacttile Disturbances: 2-Mild Itch/Numbness/Burn Auditory Disturbances: 0-None Visual Disturbances: 0-None Headache: 0-None Present CIWA-Ar Total Score: 18 - Admission Criteria OASAS Guidelines: Admission for Medically Managed Detox: Requires at least one of the followin. CIWA greater than 12 2. Seizures within the past 24 hours 3. Delirium tremens within the past 24 hours 4. Hallucinations within the past 24 hours 5. Acute intervention needed for co occurring medical disorder 6. Acute intervention needed for co occurring psychiatric disorder 7. Severe withdrawal that cannot be handled at a lower level of care (continued vomiting, continued diarrhea, abnormal vital signs) requiring intravenous medication and/or fluids 8. 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 She started drinking at age 16 and she drinks 3-4 margaritas a day. she denies ever having a seizure in the past. she reports having blackouts from alcohol use and needing an eyeopener. Patient smokes 1/2 a pack of cigarettes a day. Substance Use & Tx History - Substance Use History Alcohol Substance amount: 3-4 maragarita cans Frequency of use: Daily Substance route: Oral Date of Last Use: 08/03/20 (started age 16) PSHX: r elbow fracture psych: PTSD, panic d/o, depression social: homeless Patient is admitted for alcohol detox with a high CIWA and poor social structure. - Review of Systems Constitutional: Chills EENT: denies: Tearing Respiratory: reports: Shortness of Breath. denies: Cough, Orthopnea Cardiac: reports: Chest Tightness. denies: Chest Pain GI: reports: Diarrhea, Nausea. denies: Constipated, Vomiting : denies: Burning Musculoskeletal: reports: Muscle Pain (pain in his legs) Integumentary: denies: Bruising Neuro: reports: Dizziness. denies: Headache, Numbness, Tingling Endocrine: denies: Unexplained Weight Gain, Change in Weight Hematology: denies: Easy Bleeding Psychiatric: reports: Anxious. denies: Depressed Patient History - Patient Medical History Hx Anemia: No Hx Asthma: No Hx Chronic Obstructive Pulmonary Disease (COPD): No Hx Cancer: No Hx Cardiac Disorders: No Hx Congestive Heart Failure: No Hx Hypertension: Yes (NO COMPLAINT WITH MEDS) Hx Pacemaker: No HX Cerebrovascular Accident: No Hx Seizures: No Hx Dementia: No Hx Diabetes: No Hx Gastrointestinal Disorders: No Hx Liver Disease: No Hx Genitourinary Disorders: No Hx Sexually Transmitted Disorders: No Hx Renal Disease (ESRD): No Hx Thyroid Disease: No Hx Human Immunodeficiency Virus (HIV): No Hx Hepatitis C: No Hx Depression: No Hx Suicide Attempt: No Hx Schizophrenia: No - Patient Surgical History Past Surgical History: Yes Hx Neurologic Surgery: No Hx Cataract Extraction: No Hx Cardiac Surgery: No Hx Lung Surgery: No Hx Breast Surgery: No Hx Breast Biopsy: No Hx Abdominal Surgery: No Hx Appendectomy: No Hx Cholecystectomy: No Hx Genitourinary Surgery: No Hx Section: No Hx Orthopedic Surgery: Yes (R elbow fx reconstructive sx.) Anesthesia Reaction: No - PPD History Date: 08/17/19 Results: 0mm - Reproductive History Last Menstrual Period: 06/20/19 - Smoking Cessation Smoking history: Current every day smoker Have you smoked in the past 12 months: Yes Aproximately how many cigarettes per day: 15 Cigars Per Day: 0 Hx Chewing Tobacco Use: No Initiated information on smoking cessation: No - Substances abused Alcohol Substance route: Oral Frequency: Daily Amount used: 4 estrella cans Age of first use: 16 Date of last use: 08/03/20 Admission Physical Exam BHS - Physical General Appearance: Yes: No Apparent Distress, Obese HEENTM: Yes: Normocephalic Respiratory: Yes: Normal Breath Sounds, No Respiratory Distress, No Accessory Muscle Use Neck: Yes: Within Normal Limits Cardiology: Yes: Regular Rhythm, Regular Rate Abdominal: Yes: Non Tender, Flat, Soft Musculoskeletal: Yes: full range of Motion Extremities: Yes: Normal Range of Motion, Non-Tender Neurological: Yes: Fully Oriented, Normal Mood/Affect Integumentary: Yes: Normal Color, Dry, Warm - Diagnostic (1) Alcohol dependence with withdrawal, uncomplicated Current Visit: No Status: Acute (2) Nicotine dependence Current Visit: No Status: Acute Qualifiers: Nicotine product type: cigarettes Substance use status: in withdrawal Qualified Code(s): F17.213 - Nicotine dependence, cigarettes, with withdrawal (3) Anxiety Current Visit: No Status: Chronic (4) Lupus Current Visit: No Status: Chronic Cleared for Admission S - Detox or Rehab [facility] Level of Care: Medically Managed Detox Regimen/Protocol: Ativan Claeared for Rehab Admission: No Breathalyzer - Breathalyzer Breathalyzer: 0.090 Vital Signs - Vital Signs Vital signs refused: No Pulse Rate: 75 Respiratory Rate: 14 Blood Pressure: 101/65 - Height Height: 5 ft 7 in - Weight Weight: 168 kg - BMI Body Mass Index (BMI): 58.0 Urine Drug Screen - Test Device Lot number: [id number] Expiration date: 07/19/21 - Control Is test valid?: Yes - Results Drug screen NEGATIVE: No Urine drug screen results: ANT-Cocaine Inpatient Rehab Admission - Rehab Decision to Admit Inpatient rehab admission?: No
[2020-08-04 17:22] LABS: HEMATOCRIT 35.4 % (32.4-45.2); HEMOGLOBIN 12.1 GM/dL (10.7-15.3); MCH 33.3 pg (25.7-33.7); MCHC 34.1 g/dl (32.0-36.0); MEAN CELL VOLUME 97.8 fl (80-96); PLATELET COUNT 87 K/MM3 (134-434); RBC 3.62 M/mm3 (3.60-5.2); RDW 14.8 % (11.6-15.6); WHITE BLOOD COUNT 5.2 K/mm3 (4.0-10.0)
[2020-08-04 17:28] LABS: ALBUMIN 3.6 g/dl (3.4-5.0); BILIRUBIN,TOTAL 0.7 mg/dL (0.2-1); CALCIUM 8.2 mg/dL (8.5-10.1); CREATININE 0.8 mg/dL (0.55-1.3); POTASSIUM 3.4 mmol/L (3.5-5.1); TOT PROT 7.5 g/dl (6.4-8.2)
[2020-08-04] MEDS: LORazepam 2 MG TABLET PO SCH ×2 (17:35→22:11)
[2020-08-04] MEDS: hydrOXYzine PAMOATE 25 MG CAPSULE (FP) PO SCH ×2 (17:35→22:10)
[2020-08-04] MEDS: PRENATAL VITAMINS W/ FOLIC ACID TABLET (FP) PO SCH (17:36)
[2020-08-04] MEDS: NICOTINE 14 MG/24 HOURS TOPICAL PATCH TD SCH (17:36)
--- OUTSIDE RECORDS SUMMARY | 2020-08-04 18:51 | XMS ---
:1970 Author Organization [facility] Care Team Providers Name Role Phone RAIZA KESSLER Unavailable Unavailable ALEXANDRO BRADFORD Unavailable Unavailable Re-disclosure Warning The records that you are about to access may contain information from federally- assisted alcohol or drug abuse programs. If such information is present, then the following federally mandated warning applies: This information has been disclosed to you from records protected by federal confidentiality rules (42 CFR part 2). The federal rules prohibit you from making any further disclosure of this information unless further disclosure is expressly permitted by the written consent of the person to whom it pertains or as otherwise permitted by 42 CFR part 2. A general authorization for the release of medical or other information is NOT sufficient for this purpose. The Federal rules restrict any use of the information to criminally investigate or prosecute any alcohol or drug abuse patient.The records that you are about to access may contain highly sensitive health information, the redisclosure of which is protected by Article 27-F of the [place] State Public Health law. If you continue you may haveaccess to information: Regarding HIV / AIDS; Provided by facilities licensed or operated by the [facility] Office of Mental Health; or Provided by the [facility] Office for People With Developmental Disabilities. If such information is present, then the following [facility] mandated warning applies: This information has been disclosed to you from confidential records which are protected by state law. State law prohibits you from making any further disclosure of this information without the specific written consent of the person to whom it pertains, or as otherwise permitted by law. Any unauthorized further disclosure in violation of state law may result in a fine or skilled nursing sentence or both. A general authorization for the release of medical or other information is NOT sufficient authorization for further disclosure. Encounters Encounter Providers Location Date Indications Data Source(s ) Outpatient Attender: ALANO 10/22/2018 [facility] 09:22:37 AM Family Health EST Outpatient Attender: DUILIO 10/16/2018 [facility] 11:04:37 AM Family Health EST Outpatient Attender: DUILIO 10/02/2018 [facility] 01:51:23 PM Family Health EST Outpatient Attender: CHAYOILIO 09/24/2018 [facility] 10:22:10 AM Family Health EST Outpatient 09/03/2018 [facility] 10:07:16 AM Family Health EDT Outpatient Attender: ALANO 09/03/2018 [facility] 09:55:08 AM Family Health EDT - 09/03/2018 04:27:55 PM EDT Outpatient Attender: CHAYOILIO 08/27/2018 [facility] 08:41:44 AM Family Health EDT Outpatient Attender: CHAYOILIO 08/20/2018 [facility] 09:49:19 AM Family Health EDT - 08/20/2018 11:01:02 AM EDT Outpatient Attender: ALEXANDRO 08/15/2018 [facility] 06:26:03 PM Family Health EDT - 08/15/2018 07:57:17 PM EDT Outpatient Attender: RAIZA [id number] 08/13/2018 [facility] C-KERRI-PS 11:00:17 AM Family Healt h EDT - 08/15/2018 12:16:21 PM EDT Insurance Providers Payer name Policy type Policy ID Covered Covered green party's Policy P lena / Coverage green party ID relationship to Hennessy Inf ormation type hennessy BEACON [id number] SP [id number] [employer] EBCBS [id number] Self [id number] HEALTHPLUS MEDICAID [id number] SP [id number] MEDICAID [id number] SP [id number] MEDICAID [id number] SP [id number] [place] [id number] SP [id number] [place] EBC[employer] Medicaid Mgd 108 108 [employer] Care Problems, Conditions, and Diagnoses Code Display Name Description Problem Type Effective Dates Data Source(s) F10.11 Alcohol use Alcohol use [id number] 09/03/2018 [facility] disorder, mild, in disorder, mild, 12:00:00 AM EDT For Family early remission, in early Health in controlled remission, in environment controlled environment F10.99 Alcohol use Alcohol use Problem 08/13/2018 [facility] disorder (HCC) disorder (HCC) 12:00:00 AM EDT F or Family Health F41.0 Panic disorder Panic disorder Problem 08/13/2018 [facility] 12:00:00 AM EDT For Famil y Health F43.10 Post traumatic Post traumatic Problem 08/13/2018 [facility] stress disorder stress disorder 12:00:00 AM EDT For Family (PTSD) (PTSD) Health 973 Case Closure Case Closure Diagnosis 10/22/2018 [facility] Follow Up Follow Up 09:22:37 AM EST For Famil y Health 160 Case Closure Case Closure Diagnosis 10/16/2018 [facility] 11:04:37 AM EST For Famil y Health 460 Outreach Outreach Diagnosis 10/02/2018 [facility] 01:51:23 PM EST For Famil y Health 362 Missed Appointment Missed Diagnosis 09/24/2018 [facility] App[facility]ment 10:22:10 AM EST For Fami ly Health F10.11 Alcohol abuse, in Alcohol abuse, in Diagnosis 09/03/2018 [facility] remission remission 10:05:43 AM EDT For Famil y Health 1251 Reschedule Reschedule Diagnosis 08/27/2018 [facility] Appointment Appointment 08:41:44 AM EDT For Fam tomy Health F10.99 Alcohol use, Alcohol use, Diagnosis 08/13/2018 [facility] [place] unspecified with unspecified with 02:00:49 PM E DT For Family 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 F41.0 Panic disorder Panic disorder Diagnosis 08/13/2018 [facility] [episodic (episodic 01:57:00 PM EDT For 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 ID Date Data Source [id number] 07/02/2020 12:58:00 AM EDT [facility] Name Value Range Interpretation Code Description Data Estefania rce(s) Supporting Document(s ) SARS-COV-2 [facility] PCR This lab was ordered by [facility] and reported by [facility]. ID Date Data Source [id number] 06/21/2020 04:03:00 PM EDT [facility] Name Value Range Interpretation Code Description Data Estefania rce(s) Supporting Document(s ) Overall [facility] Result: This lab was ordered by [facility] and reported by [facility]. ID Date Data Source [id number] 06/14/2020 09:17:00 PM EDT [facility] Name Value Range Interpretation Description Data Sup porting Code Source(s) Document(s ) SARS [facility] coronavirus 2 RNA This lab was ordered by [facility] and reported by [facility]. ID Date Data Source [id number] 05/06/2020 11:55:00 AM EDT [facility] Name Value Range Interpretation Description Data Sup porting Code Source(s) Document(s ) SARS [facility] CORONAVIRUS 2 RNA This lab was ordered by [facility] and reported by [facility]. ID Date Data Source [id number] 05/01/2020 07:21:00 PM EDT [facility] Name Value Range Interpretation Description Data Sup porting Code Source(s) Document(s ) SARS [facility] CORONAVIRUS 2 RNA This lab was ordered by [facility] and reported by [facility]. ID Date Data Source [id number] 04/08/2020 11:07:00 AM EDT [facility] Name Value Range Interpretation Code Description Data Estefania rce(s) Supporting Document(s ) SARS-COV-2 [facility] PCR This lab was ordered by [facility] and reported by [facility]. ID Date Data Source [id number] 04/01/2020 12:00:00 AM EDT [facility] Name Value Range Interpretation Code Description Data Estefania rce(s) Supporting Document(s ) SARS-CoV-2 [facility] RNA Resp Ql REGI+probe This lab was ordered by [facility] and reported by [facility]. ID Date Data Source [id number] 02/28/2020 04:52:00 PM EDT [facility] Name Value Range Interpretation Code Description Data Estefania rce(s) Supporting Document(s ) Overall [facility] Result: This lab was ordered by [facility] and reported by [facility]. Procedure Social History Code Duration Value Status Description Data Source(s ) Smoking 09/04/2018 Unknown if ever completed Unknown if ever [facility] 12:00:00 AM EDT smoked smoked Family He alth Smoking 08/28/2018 Unknown if ever completed Unknown if ever [facility] 12:00:00 AM EDT smoked smoked Family He alth Smoking 08/21/2018 Unknown if ever completed Unknown if ever [facility] 12:00:00 AM EDT smoked smoked Family He alth Smoking 08/16/2018 Unknown if ever completed Unknown if ever [facility] 12:00:00 AM EDT smoked smoked Family He alth Smoking Unknown if ever completed Unknown if ever [facility] smoked smoked Family Health
[2020-08-04 18:54] VITALS: BMI 58.0
[2020-08-04] MEDS: THIAMINE HCL 100 MG TABLET (FP) PO SCH (22:10)
[2020-08-04] MEDS: MELATONIN 5 MG TABLETS PO SCH (22:11)
[2020-08-04] MEDS: NYSTATIN 100,000 UNIT/GM TOPICAL CREAM 15 GM TUBE TP SCH (23:45)
[2020-08-05] MEDS: LORazepam 2 MG TABLET PO SCH ×4 (05:46→22:09)
[2020-08-05] MEDS: hydrOXYzine PAMOATE 25 MG CAPSULE (FP) PO SCH ×3 (05:46→13:46)
--- NOTE | 2020-08-05 09:04 | PN ---
Teaching Attending Note Name of Resident: Cassie Tucker ATTENDING PHYSICIAN STATEMENT I saw and evaluated the patient. I reviewed the resident's note and discussed the case with the resident. I agree with the resident's findings and plan as documented. SUBJECTIVE: OBJECTIVE: ASSESSMENT AND PLAN: Agree with resident's findings and plan for detox.
[2020-08-05] MEDS ORDERED: LISINOPRIL 10 MG TABLET (FP) PO SCH (10:00)
[2020-08-05] MEDS: NYSTATIN 100,000 UNIT/GM TOPICAL CREAM 15 GM TUBE TP SCH ×2 (10:23→22:11)
[2020-08-05] MEDS: PRENATAL VITAMINS W/ FOLIC ACID TABLET (FP) PO SCH (10:37)
[2020-08-05] MEDS: LISINOPRIL 5 MG TABLET (FP) PO SCH (10:37)
[2020-08-05] MEDS: NICOTINE 14 MG/24 HOURS TOPICAL PATCH TD SCH (10:37)
[2020-08-05] MEDS ORDERED: guaiFENesin 200 MG/10 ML 10 ML UNIT-DOSE CUPS PO PRN (14:01)
--- NOTE | 2020-08-05 14:01 | PN ---
[facility] CIWA - CIWA Score Nausea/Vomitin-No Nausea/No Vomiting Muscle Tremors: 3 Anxiety: 3 Agitation: 3 Paroxysmal Sweats: 2 Orientation: 0-Oriented Tacttile Disturbances: 0-None Auditory Disturbances: 0-None Visual Disturbances: 0-None Headache: 0-None Present CIWA-Ar Total Score: 11 S Progress Note (SOAP) Subjective: cough sweats nausea shakes interrupted sleep agitation Objective: 08/05/20 13:57 Vital Signs Temperature 98.1 F 08/05/20 08:15 Pulse Rate 79 08/05/20 08:15 Respiratory Rate 16 08/05/20 08:15 Blood Pressure 112/66 08/05/20 08:15 O2 Sat by Pulse Oximetry (%) 98 08/05/20 05:38 Laboratory Tests 08/04/20 08/04/20 08/04/20 14:15 14:15 14:15 WBC 5.2 RBC 3.62 Hgb 12.1 Hct 35.4 MCV 97.8 H MCH 33.3 MCHC 34.1 RDW 14.8 Plt Count 87 L D MPV 11.0 Platelet Comment Sodium 139 Potassium 3.4 L Chloride 104 Carbon Dioxide 25 Anion Gap 11 BUN 4.0 L Creatinine 0.8 Est GFR (CKD-EPI)AfAm 100.33 Est GFR (CKD-EPI)NonAf 86.57 Random Glucose 83 Calcium 8.2 L Total Bilirubin 0.7 AST 98 H ALT 77 H Alkaline Phosphatase 95 Total Protein 7.5 Albumin 3.6 POC Urine HCG, Qual Syphilis Serology Non-reactive 08/04/20 15:50 WBC RBC Hgb Hct MCV MCH MCHC RDW Plt Count MPV Platelet Comment Sodium Potassium Chloride Carbon Dioxide Anion Gap BUN Creatinine Est GFR (CKD-EPI)AfAm Est GFR (CKD-EPI)NonAf Random Glucose Calcium Total Bilirubin AST ALT Alkaline Phosphatase Total Protein Albumin POC Urine HCG, Qual Negative Syphilis Serology labs noted mildly low potassium 3.4 mildly high ast and alt noted kdur 40meq x 2 days ordered labs repeated for Monday. aaox3 ambulating no acute distress Assessment: 08/05/20 14:00 withdrawals Plan: continue detox kdur 40meq ordered increase fluids
--- NOTE | 2020-08-05 14:06 | CONSULT ---
[facility] Psychiatric Consult - Data Date of interview: 08/05/20 Admission source: Self-referred Identifying data: Ms Gan is a 50 years old female, mother of a 13 years old daughter, unemployed, homeless seeking detox treatment for alcohol Substance Abuse History: Reports history of alcohol use. Refer to addiction counselor's sumary for further information Medical History: Significant for discoid lupus erythematosus and orthosurgery for reconstruction of right elbow in 1995. Smokes 15 cigarettes daily Psychiatric History: Patient is known for multiple previous admission to this facility. She was approached several time at bedside but kept putting it off. Told promotion writer this time:" I'm tired and does not feel like getting up to talk right now". Psychiatric Findings - Initial Treatment Plan Initial Treatment Plan: Please reconsult when patient is more appropriate for psychiatric interview
[2020-08-05] MEDS: POTASSIUM CHLORIDE TABS 20 MEQ TABLET.ER (FP) PO SCH (14:58)
[2020-08-05] MEDS ORDERED: LISINOPRIL 5 MG TABLET (FP) PO ONE (19:33)
[2020-08-05] MEDS: THIAMINE HCL 100 MG TABLET (FP) PO SCH (22:09)
[2020-08-05] MEDS: MELATONIN 5 MG TABLETS PO SCH (22:09)
[2020-08-06] MEDS: LORazepam 1 MG TABLET PO SCH ×3 (05:36→17:23)
[2020-08-06] MEDS: POTASSIUM CHLORIDE TABS 20 MEQ TABLET.ER (FP) PO SCH (10:14)
[2020-08-06] MEDS: LISINOPRIL 5 MG TABLET (FP) PO SCH (10:14)
[2020-08-06] MEDS: PRENATAL VITAMINS W/ FOLIC ACID TABLET (FP) PO SCH (10:14)
[2020-08-06] MEDS: NICOTINE 14 MG/24 HOURS TOPICAL PATCH TD SCH (10:14)
[2020-08-06] MEDS: NYSTATIN 100,000 UNIT/GM TOPICAL CREAM 15 GM TUBE TP SCH (10:16)
[2020-08-06] MEDS: hydrOXYzine PAMOATE 25 MG CAPSULE (FP) PO PRN ×2 (10:16→15:20)
--- NOTE | 2020-08-06 11:43 | PN ---
[facility] CIWA - CIWA Score Nausea/Vomitin-No Nausea/No Vomiting Muscle Tremors: 2 Anxiety: 1-Mildly Anxious Agitation: 2 Paroxysmal Sweats: 2 Orientation: 0-Oriented Tacttile Disturbances: 0-None Auditory Disturbances: 0-None Visual Disturbances: 0-None Headache: 0-None Present CIWA-Ar Total Score: 7 S Progress Note (SOAP) Subjective: sweats body aches tired Objective: 08/06/20 11:42 Vital Signs Temperature 98.9 F 08/06/20 08:30 Pulse Rate 71 08/06/20 08:30 Respiratory Rate 15 08/06/20 08:30 Blood Pressure 145/80 08/06/20 08:30 O2 Sat by Pulse Oximetry (%) 100 08/06/20 08:30 Laboratory Tests 08/04/20 08/04/20 08/04/20 14:15 14:15 14:15 WBC 5.2 RBC 3.62 Hgb 12.1 Hct 35.4 MCV 97.8 H MCH 33.3 MCHC 34.1 RDW 14.8 Plt Count 87 L D MPV 11.0 Platelet Comment Sodium 139 Potassium 3.4 L Chloride 104 Carbon Dioxide 25 Anion Gap 11 BUN 4.0 L Creatinine 0.8 Est GFR (CKD-EPI)AfAm 100.33 Est GFR (CKD-EPI)NonAf 86.57 Random Glucose 83 Calcium 8.2 L Total Bilirubin 0.7 AST 98 H ALT 77 H Alkaline Phosphatase 95 Total Protein 7.5 Albumin 3.6 POC Urine HCG, Qual Syphilis Serology Non-reactive COVID-19 (REGI) 08/04/20 08/04/20 15:50 17:00 WBC RBC Hgb Hct MCV MCH MCHC RDW Plt Count MPV Platelet Comment Sodium Potassium Chloride Carbon Dioxide Anion Gap BUN Creatinine Est GFR (CKD-EPI)AfAm Est GFR (CKD-EPI)NonAf Random Glucose Calcium Total Bilirubin AST ALT Alkaline Phosphatase Total Protein Albumin POC Urine HCG, Qual Negative Syphilis Serology COVID-19 (REGI) Not detected labs noted labs repeated ordered aaox3 lying in bed no acute distress Assessment: 08/06/20 11:46 withdrawals Plan: continue detox
[2020-08-06 14:03] VITALS: BP 143/74; PULSE 77; TEMP 98.1
--- NOTE | 2020-08-06 20:09 | DS ---
[facility] Detox Discharge Summary Admission Date: 08/04/20 - History Additional Comments: called by nursing for pt wanting to leave . Pt states " I just want to leave " very agitated , beligerant ambulating freely on the floor , declined medical evaluation and assessment , declines additional meds , demanding " I just want my stuff to go " . Pt was educated on the risks of leaving AMA and verbalized a desire to proceed with discharge . Active Medications Acetaminophen (Tylenol -) 650 mg PO Q6H PRN PRN Reason: PAIN LEVEL 4 - 6 Last Admin: 08/05/20 19:15 Dose: 650 mg Documented by: Acetaminophen (Tylenol -) 650 mg PO Q6H PRN PRN Reason: FEVER Al Hydroxide/Mg Hydroxide (Mylanta Oral Suspension -) 30 ml PO Q6H PRN PRN Reason: DYSPEPSIA Bismuth Subsalicylate (Pepto-Bismol -) 524 mg PO Q1H PRN PRN Reason: DIARRHEA Eucalyptus/Menthol/Phenol/Sorbitol (Cepastat Lozenge -) 1 each MM Q4H PRN PRN Reason: SORE THROAT Stop: 08/10/20 15:12 Guaifenesin (Robitussin -) 10 ml PO Q6H PRN PRN Reason: COUGH Last Admin: 08/05/20 15:51 Dose: 10 ml Documented by: Hydroxyzine Pamoate (Vistaril -) 25 mg PO Q4HWA PRN PRN Reason: AGITATION Stop: 08/10/20 15:12 Last Admin: 08/06/20 15:20 Dose: 25 mg Documented by: Ibuprofen (Motrin -) 400 mg PO Q6H PRN PRN Reason: PAIN LEVEL 1 - 3 Lisinopril (Prinivil) 5 mg PO DAILY [facility] Last Admin: 08/06/20 10:14 Dose: 5 mg Lorazepam (Ativan -) 1 mg PO Q4H PRN PRN Reason: Symptoms of Withdrawal Stop: 08/06/20 23:59 Last Admin: 08/06/20 15:20 Dose: 1 mg DocumentVital Signs - 24 hr ed by: Lorazepam (Ativan -) 0.5 mg PO Q6H [facility] Stop: 08/07/20 23:01 Lorazepam (Ativan -) 0.5 mg PO Q4H PRN PRN Reason: Symptoms of Withdrawal Stop: 08/08/20 00:00 Lorazepam (Ativan -) 0.5 mg PO ONCE ONE Stop: 08/08/20 05:01 Magnesium Citrate (Citroma -) 300 ml PO Q48H PRN PRN Reason: CONSTIPATION Magnesium Hydroxide (Milk Of Magnesia -) 30 ml PO PRN PRN PRN Reason: CONSTIPATION Melatonin (Melatonin) [address] [facility] Last Admin: 08/05/20 22:09 Dose: 5 mg Documented by: Methocarbamol (Robaxin -) 500 mg PO Q6H PRN PRN Reason: MUSCLE SPASMS Stop: 08/10/20 15:12 Nicotine (Nicoderm Patch -) 14 mg TD DAILY [facility] Last Admin: 08/06/20 10:14 Dose: Not Given Documented by: Nicotine Polacrilex (Nicorette Gum -) 2 mg BUC Q2H PRN PRN Reason: NICOTINE REPLACEMENT RX Last Admin: 08/05/20 22:11 Dose: 2 mg Documented by: Nystatin (Mycostatin Cream -) 1 applic TP BID [facility] Last Admin: 08/06/20 10:16 Dose: 1 applic Documented by: Potassium Chloride (K-Dur -) 40 meq PO DAILY [facility] Stop: 08/07/20 13:59 Last Admin: 08/06/20 10:14 Dose: 40 meq Documented by: Multivit/Folic Acid/Iron ( Vitamins (Sjr) -) 1 tab PO DAILY [facility] Last Admin: 08/06/20 10:14 Dose: 1 tab Documented by: Thiamine HCl (Vitamin B1 -) [address] [facility] Last Admin: 08/05/20 22:09 Dose: 100 mg Documented by: Vital Signs - 24 hr 08/05/20 08/05/20 08/06/20 20:50 22:47 05:43 Temperature 97.8 F 97.7 F 96.6 F L Pulse Rate 89 72 72 Respiratory 16 18 18 Rate Blood Pressure 160/80 143/86 122/72 O2 Sat by Pulse 100 97 100 Oximetry (%) 08/06/20 08/06/20 08:30 12:50 Temperature 98.9 F 98.1 F Pulse Rate 71 77 Respiratory 15 16 Rate Blood Pressure 145/80 143/74 O2 Sat by Pulse 100 Oximetry (%) - Physical Exam Results Vital Signs: Vital Signs Temperature 98.1 F 08/06/20 12:50 Pulse Rate 77 08/06/20 12:50 Respiratory Rate 16 08/06/20 12:50 Blood Pressure 143/74 08/06/20 12:50 O2 Sat by Pulse Oximetry (%) 100 08/06/20 08:30 - Medication Discharge Medications: Ambulatory Orders Lisinopril [Prinivil] 5 mg PO DAILY 06/14/20 - AMA Did Patient Leave Against Medical Advice: Yes
[2020-08-07] MEDS ORDERED: LORazepam 0.5 MG TABLET PO PRN
[2020-08-07] MEDS ORDERED: LORazepam 0.5 MG TABLET PO SCH (05:00)
[2020-08-08] MEDS ORDERED: LORazepam 0.5 MG TABLET PO ONE (05:00)
== END 2020-08-06 20:07 | disposition left against medical advice (07) | DRG 770 ==
LOC: YASAS 13:43 → Y6N 16:59
PROVIDERS: ADMIT Allergy & Immunology; ATTEND Allergy & Immunology
PROC: HZ2ZZZZ Detoxification Services for Substance Abuse Treatment (ICD-10-PCS; principal; 2020-08-04)
DX: F10.230 Alcohol dependence with withdrawal, uncomplicated (principal); F17.210 Nicotine dependence, cigarettes, uncomplicated; F41.0 Panic disorder [episodic paroxysmal anxiety]; F43.10 Post-traumatic stress disorder, unspecified; F41.9 Anxiety disorder, unspecified; L93.0 Discoid lupus erythematosus; I10 Essential (primary) hypertension; Z91.14 Patient's other noncompliance with medication regimen; Z88.1 Allergy status to other antibiotic agents; Z88.8 Allergy status to other drugs, medicaments and biological substances; Z56.0 Unemployment, unspecified; Z59.0 Homelessness
CPT/HCPCS: 36415; 80053; 81025; 85027; 86780; U0003

== ENCOUNTER 2020-09-01 13:49 | Inpatient (IN) | payer OTHER ==
--- OUTSIDE RECORDS SUMMARY | 2020-09-01 13:58 | XMS ---
:1970 Author Organization [facility] Support Name Relationship Address Phone DARRIN GUZMAN [address] [place] [id number] UE Unavailable Unavailable Unavailable VIRGINIA GUZMAN SELF / SAME PATIENT [address] [place] [address] YET, NOT Unavailable [address] [place] [address] SAL GUZMAN MTH Unavailable DARRIN GUZMAN [address] Unavailable [place] [id number] Re-disclosure Warning The records that you are [...] is protected by Article 27-F of the [facility] Public Health law. If you continue you may haveaccess to information: Regarding HIV / AIDS; Provided by facilities licensed or operated by the [facility] Office of Mental Health; or Provided by the [facility] Office for People With Developmental Disabilities. If such information is present, then the following [facility] mandated warning applies: This information has [...] law may result in a fine or fdc sentence or both. A general authorization for the release of medical or other information is NOT sufficient authorization for further disclosure. Insurance Providers Payer name Policy type Policy ID Covered Covered constitution party's Policy P lena / Coverage constitution party ID relationship to Hennessy Inf ormation type hennessy [employer] [id number] SP [id number] [employer] [id number] SP [id number] [employer] EBC[employer] [id number] Self [id number] [employer] MEDICAID [id number] SP [id number] MEDICAID [id number] SP [id number] MEDICAID [id number] SP [id number] [place] [id number] SP [id number] [place] [employer] Medicaid Mgd 108 108 [employer] Care Results ID Date Data Source [id number] 08/14/2020 03:31:00 PM EDT [facility] Name Value Range Interpretation Code Description Data Estefania rce(s) Supporting Document(s ) Overall [facility] Result: This lab was ordered by [facility] and reported by [facility]. ID Date Data Source [id number] 08/04/2020 05:00:00 PM EDT [facility] Name Value Range Interpretation Description Data Sup porting Code Source(s) Document(s ) SARS [facility] coronavirus 2 RNA This lab was ordered by [facility] and reported by [facility]. ID Date Data Source [id number] 07/20/2020 09:05:00 PM EDT [facility] Name Value Range Interpretation Code Description Data Estefania rce(s) Supporting Document(s ) Overall [facility] Result: This lab was ordered by [facility] and reported by [facility]. ID Date Data Source [id number] 07/02/2020 12:58:00 AM EDT [facility] Name Value Range Interpretation Code Description Data Estefania rce(s) Supporting Document(s ) SARS-COV-2 [facility] PCR This lab was ordered by [facility] and reported by [facility]. ID Date Data Source [id number] 06/21/2020 04:03:00 PM EDT [facility] Name Value Range Interpretation Code Description Data Estefania rce(s) Supporting Document(s ) Overall [facility] Result: This lab was ordered by [facility] and reported by [facility]. ID Date Data Source [id number] 06/14/2020 09:17:00 PM EDT [facility] Name Value Range Interpretation Description Data Sup porting Code Source(s) Document(s ) SARS [facility] coronavirus 2 RNA This lab was ordered by [facility] and reported by [facility]. ID Date Data Source [id number] 05/06/2020 11:55:00 AM EDT [facility] Name Value Range Interpretation Description Data Sup porting Code Source(s) Document(s ) SARS [facility] CORONAVIRUS 2 RNA This lab was ordered by [facility] and reported by [facility]. ID Date Data Source [id number] 05/01/2020 07:21:00 PM EDT [facility] Name Value Range Interpretation Description Data Sup porting Code Source(s) Document(s ) SARS [facility] CORONAVIRUS 2 RNA This lab was ordered by [facility] and reported by [facility]. ID Date Data Source [id number] 04/08/2020 11:07:00 AM EDT [facility] Name Value Range Interpretation Code Description Data Estefania rce(s) Supporting Document(s ) SARS-COV-2 [facility] PCR This lab was ordered by [facility] and reported by [facility]. ID Date Data Source [id number] 04/01/2020 12:00:00 AM EDT [facility] Name Value Range Interpretation Code Description Data Estefania rce(s) Supporting Document(s ) SARS-CoV-2 [facility] RNA Resp Ql REGI+probe This lab was ordered by [facility] and reported by [facility]. ID Date Data Source [id number] 02/28/2020 04:52:00 PM EDT [facility] Name Value Range Interpretation Code Description Data Estefania rce(s) Supporting Document(s ) Overall [facility] Result: This lab was ordered by [facility] and reported by [facility]. Procedure
--- NOTE | 2020-09-01 14:02 | BHS.RME ---
Substance Use & Tx History - Substance Use History Alcohol Substance amount: 4-5 cans beer 20 0z + 1/2 pint vodka Frequency of use: Daily Substance route: Oral Date of Last Use: 08/31/20 (started age 16) Nicotine Substance amount: 1/2 pack Frequency of use: Daily Substance route: Smoking Date of Last Use: 09/01/20 (started age 19) - Last Treatment Date of last treatment: 08/04-07/06/20 AMA Treatment type: Substance Use Disorder ([facility]) Where was last treatment: Detox Physical/Psych/Mental Status - Behavior General Behavior: Increased activity (restlessness, agitation) Eye Contact: Normal - Cooperativeness Cooperativeness: Cooperative - Thinking Thought Processes: Tight, Logical, Goal Directed Thought content: Future oriented - Physical Health Problems Is patient presently having any pain?: No Does patient presently have any injuries (include location): No Does patient currently have a fever: No Is patient : No CIWA Nausea/Vomitin-Mild Nausea/No Vomiting Muscle Tremors: 6 Anxiety: 6 Agitation: 4-Moderately Restless Paroxysmal Sweats: 4-Forehead w/Sweat Beads Orientation: 0-Oriented Tacttile Disturbances: 0-None Auditory Disturbances: 0-None Visual Disturbances: 0-None Headache: 5-Severe CIWA-Ar Total Score: 26
[2020-09-01] MEDS ORDERED: chlordiazePOXIDE HCL 25 MG CAPSULE PO ONE (14:39)
[2020-09-01] MEDS ORDERED: chlordiazePOXIDE HCL 25 MG CAPSULE ONE (14:42)
[2020-09-01] MEDS ORDERED: LORazepam 2 MG TABLET PO ONE (14:44)
--- NOTE | 2020-09-01 14:53 | HP ---
CIWA Score Nausea/Vomitin-Mild Nausea/No Vomiting Muscle Tremors: 6 Anxiety: 6 Agitation: 4-Moderately Restless Paroxysmal Sweats: 4-Forehead w/Sweat Beads Orientation: 0-Oriented Tacttile Disturbances: 0-None Auditory Disturbances: 0-None Visual Disturbances: 0-None Headache: 5-Severe CIWA-Ar Total Score: 26 - Admission Criteria [facility]ASAS Guidelines: Admission for Medically Managed Detox: Requires at least one of the followin. CIWA greater than 12 2. Seizures within the past 24 hours 3. Delirium tremens within the past 24 hours 4. Hallucinations within the past 24 hours 5. Acute intervention needed for co occurring medical disorder 6. Acute intervention needed for co occurring psychiatric disorder 7. Severe withdrawal that cannot be handled at a lower level of care (continued vomiting, continued diarrhea, abnormal vital signs) requiring intravenous medication and/or fluids 8. Admitting History and Physical - Admission Chief Complaint: Pt is a 50 yo F presenting for detox from alcohol; "alcohol detox." History of Present Illness: Pt is a 50 yo F presenting for detox from alcohol; "alcohol detox." Pt is s/p visit to [facility] ED yesterday night d/t alcohol withdrawal symptoms - was given valium and pt was brought to [facility] today morning. Pt was last at [facility] from 08/04/2020 - 08/06/2020 but left AMA; pt willing to sign contract for completion of detox. Pt reports 1 week of sobriety after leaving but relapsing soon after. Pt reports anxiety from not being able to see her daughter who lives in [place] with her father is a trigger; also reports she was living with a friend that is an alcoholic and it led to her drinking more as well. Pt was in acute withdrawal during examination; 2 mg Ativan administered. PMH: lupus (no current meds), HTN PSH: orthopedic surgery of R elbow s/p fracture Psych: PTSD, depression, anxiety (lexapro, hasn't been taking it for the last 1 month) Soc/Domiciled: homeless - staying with friend currently Legal: none - Substance Use History Alcohol Substance amount: 4-5 cans beer 20 0z + 1/2 pint vodka Frequency of use: Daily Substance route: Oral Date of Last Use: 08/31/20 (started age 16) Nicotine Substance amount: 1/2 pack Frequency of use: Daily Substance route: Smoking Date of Last Use: 09/01/20 (started age 19) - Last Treatment Date of last treatment: 08/04-07/06/20 AMA Treatment type: Substance Use Disorder ([facility]) Where was last treatment: Detox - Past Medical History Cardiovascular: Yes: HTN ...LMP: 06/20/19 Psych: Yes: Panic, Other (PTSD) Rheumatology: Yes: Lupus - Smoking History Smoking history: Current every day smoker Have you smoked in the past 12 months: Yes Aproximately how many cigarettes per day: 15 - Alcohol/Substance Use Hx Alcohol Use: Yes - Social History ADL: Independent 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, 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 History of Recent Travel: No Admission ROS S - HPI Allergies/Adverse Reactions: Allergies Allergy/AdvReac Type Severity Reaction Status Date / Time azithromycin Allergy Intermediate Hives Verified 08/04/20 16:30 chlordiazepoxide Allergy Intermediate Hives Verified 08/04/20 16:30 [From [employer]] - Ebola screening Have you traveled outside of the country in the last 21 days: No Have you been sick,other than usual withdrawal symptoms: Yes (UTI about 2 weeks ago; finished antibiotic course) Do you have a fever: No - Review of Systems Constitutional: Diaphoresis EENT: reports: No Symptoms Reported Respiratory: reports: No Symptoms reported Cardiac: reports: Lightheadedness (mild lightheaded) GI: reports: Diarrhea (diarrhea x 1 week (watery)), Nausea : reports: No Symptoms Reported Musculoskeletal: reports: Joint Pain (mild L ankle pain; minimal pain with palpation) Integumentary: reports: Bruising (on L ankle s/p fall 1 week ago;) Neuro: reports: Tremors (moderate) Endocrine: reports: No Symptoms Reported Hematology: reports: No Symptoms Reported Psychiatric: reports: Orientated x3, Agitated (very restless and irritated), Anxious (moderate -severe), Depressed (hx of depression; no SI/HI; no SA previously) Patient History - Patient Medical History Hx Anemia: No Hx Asthma: No Hx Chronic Obstructive Pulmonary Disease (COPD): No Hx Cancer: No Hx Cardiac Disorders: No Hx Congestive Heart Failure: No Hx Hypertension: Yes (NO COMPLAINT WITH MEDS) Hx Pacemaker: No HX Cerebrovascular Accident: No Hx Seizures: No Hx Dementia: No Hx Diabetes: No Hx Gastrointestinal Disorders: No Hx Liver Disease: No Hx Genitourinary Disorders: No Hx Sexually Transmitted Disorders: No Hx Renal Disease (ESRD): No Hx Thyroid Disease: No Hx Human Immunodeficiency Virus (HIV): No Hx Hepatitis C: No Hx Depression: Yes Hx Suicide Attempt: No Hx Schizophrenia: No - Patient Surgical History Past Surgical History: Yes Hx Neurologic Surgery: No Hx Cataract Extraction: No Hx Cardiac Surgery: No Hx Lung Surgery: No Hx Breast Surgery: No Hx Breast Biopsy: No Hx Abdominal Surgery: No Hx Appendectomy: No Hx Cholecystectomy: No Hx Genitourinary Surgery: No Hx Section: No Hx Orthopedic Surgery: Yes (R elbow fx reconstructive sx.) Anesthesia Reaction: No - PPD History Date: 08/06/20 Results: 0mm - Reproductive History Last Menstrual Period: 06/20/19 - Smoking Cessation Smoking history: Current every day smoker Have you smoked in the past 12 months: Yes Aproximately how many cigarettes per day: 12 Cigars Per Day: 0 Initiated information on smoking cessation: Yes 'Breaking Loose' booklet given: 09/01/20 Admission Physical Exam [facility] - Vital Signs Vital Signs: BP 148/94 HR 125 RR 12 T 97.7 O2 sat 99% - Physical General Appearance: Yes: Nourished, Appropriately Dressed, Tremorous, Sweating (intermittent), Anxious (moderate) HEENTM: Yes: EOMI, Hearing grossly Normal, Normocephalic, Normal Voice Respiratory: Yes: Lungs Clear, Normal Breath Sounds, No Respiratory Distress, No Accessory Muscle Use Neck: Yes: Supple, Trachea in good position Breast: Yes: Breast Exam Deferred (deferred) Cardiology: Yes: Regular Rhythm, Tachycardia Abdominal: Yes: Normal Bowel Sounds, Non Tender, Flat, Soft, Other (lower abdominal discomfort; pt just finished antibiotic course for UTI (no longer with sx)) Genitourinary: Yes: Other Back: Yes: Other (excoriations from lower left back (2/2 pruritis from lupus)) Musculoskeletal: Yes: full range of Motion, Gait Steady Extremities: Yes: Normal Inspection, Normal Range of Motion, Tremors (moderate tremors with outstretched hands), Swelling (left ankle/foot echymosis + mild swelling; s/p fall 1 week ago), Other Neurological: Yes: Fully Oriented, Alert, Motor Strength 5/5 Integumentary: Yes: Normal Color (see ext exam regarding bruise on L ankle), Dry, Warm - Diagnostic (1) Alcohol dependence with withdrawal, uncomplicated Current Visit: Yes Status: Acute (2) Nicotine dependence Current Visit: Yes Status: Acute Qualifiers: Nicotine product type: cigarettes Substance use status: in withdrawal Qualified Code(s): F17.213 - Nicotine dependence, cigarettes, with withdrawal (3) Anxiety Current Visit: No Status: Chronic (4) Discoid lupus erythematosus Current Visit: No Status: Chronic (5) MDD (major depressive disorder), recurrent episode Current Visit: No Status: Chronic Qualifiers: Major depression episode severity: mild Qualified Code(s): F33.0 - Major depressive disorder, recurrent, mild (6) PTSD (post-traumatic stress disorder) Current Visit: No Status: Chronic Cleared for Admission [facility] - Detox or Rehab [facility] Level of Care: Medically Managed Detox Regimen/Protocol: Ativan Breathalyzer - Breathalyzer Breathalyzer: 0.090 Urine Drug Screen - Test Device Lot number: [id number] Expiration date: 02/25/22 - Control Is test valid?: Yes - Results Drug screen NEGATIVE: No Urine drug screen results: BZO-Benzodiazepines Inpatient Rehab Admission - Rehab Decision to Admit Inpatient rehab admission?: No
[2020-09-01] MEDS ORDERED: METHOCARBAMOL 500 MG TABLET PO PRN (15:26)
[2020-09-01] MEDS ORDERED: IBUPROFEN 400 MG TABLET (FP) PO PRN (15:26)
[2020-09-01] MEDS ORDERED: MAGNESIUM HYDROX 2400MG/30ML ORAL SUSPENSION 30 ML CUP PO PRN (15:26)
[2020-09-01] MEDS ORDERED: ONDANSETRON *ODT* 4 MG TABLET SL PRN (15:26)
[2020-09-01] MEDS ORDERED: ACETAMINOPHEN 325 MG TABLET (FP) PO PRN ×2 (15:26)
[2020-09-01] MEDS ORDERED: BISMUTH SUBSALICYLATE 262 MG/15 ML BTL PO PRN (15:26)
[2020-09-01] MEDS ORDERED: MAG HYDROX/AL HYDROX/SIMETH 30 ML UNIT-DOSE CUP PO PRN (15:26)
[2020-09-01] MEDS ORDERED: MENTHOL/PHENOL 1 EACH UD MM PRN (15:26)
[2020-09-01] MEDS ORDERED: MAGNESIUM CITRATE 300 ML BOTTLE PO PRN (15:26)
--- OUTSIDE RECORDS SUMMARY | 2020-09-01 15:48 | XMS ---
:1970 Author Organization [facility] Support Name Relationship Address Phone DARRIN GUZMAN [address] [place] [phone] UE Unavailable Unavailable Unavailable VIR[place]IA GUZMAN SELF / SAME PATIENT [address] [phone] [place] [address] YET, NOT Unavailable [address] [place] [address] SAL GUZMAN MTH Unavailable DARRIN GUZMAN [address] Unavailable [place] [id number] Re-disclosure Warning The records that you are [...] is protected by Article 27-F of the [facility] Public Health law. If you continue you may haveaccess to information: Regarding HIV / AIDS; Provided by facilities licensed or operated by the [facility] Office of Mental Health; or Provided by the [facility] Office for People With Developmental Disabilities. If such information is present, then the following [facility] mandated warning applies: This information has [...] law may result in a fine or custodial sentence or both. A general authorization for the release of medical or other information is NOT sufficient authorization for further disclosure. Insurance Providers Payer name Policy type Policy ID Covered Covered democrat's Policy P lena / Coverage democrat ID relationship to Hen[place] Inf ormation type hennessy BEACON [id number] SP [id number] [employer]ACON [id number] SP [id number] [employer] EBCBS [id number] Self [id number] HE[employer]US MEDICAID [id number] SP [id number] MEDICAID [id number] SP [id number] MEDICAID [id number] SP [id number] BE[place] [id number] SP [id number] [place] EBCBS Medicaid Mgd [id number] [employer] Care Results ID Date Data Source [id number] 08/14/2020 03:31:00 PM EDT [facility] Name Value Range Interpretation Code Description Data Estefania rce(s) Supporting Document(s ) Overall [facility] Result: This lab was ordered by [facility] and reported by [facility]. ID Date Data Source [id number] 08/04/2020 05:00:00 PM EDT [facility] Name Value Range Interpretation Description Data Sup porting Code Source(s) Document(s ) SARS [facility] coronavirus 2 RNA This lab was ordered by [facility] and reported by [facility]. ID Date Data Source [id number] 07/20/2020 09:05:00 PM EDT [facility] Name Value Range Interpretation Code Description Data Estefania rce(s) Supporting Document(s ) Overall [facility] Result: This lab was ordered by [facility] and reported by [facility]. ID Date Data Source [id number] 07/02/2020 12:58:00 AM EDT [facility] Name Value Range Interpretation Code Description Data Estefania rce(s) Supporting Document(s ) SARS-COV-2 [facility] PCR This lab was ordered by [facility] and reported by [facility]. ID Date Data Source [id number] 06/21/2020 04:03:00 PM EDT [facility] Name Value Range Interpretation Code Description Data Estefania rce(s) Supporting Document(s ) Overall [facility] Result: This lab was ordered by [facility] and reported by [facility]. ID Date Data Source [id number] 06/14/2020 09:17:00 PM EDT [facility] Name Value Range Interpretation Description Data Sup porting Code Source(s) Document(s ) SARS [facility] coronavirus 2 RNA This lab was ordered by [facility] and reported by [facility]. ID Date Data Source [id number] 05/06/2020 11:55:00 AM EDT [facility] Name Value Range Interpretation Description Data Sup porting Code Source(s) Document(s ) SARS [facility] CORONAVIRUS 2 RNA This lab was ordered by [facility] and reported by [facility]. ID Date Data Source [id number] 05/01/2020 07:21:00 PM EDT [facility] Name Value Range Interpretation Description Data Sup porting Code Source(s) Document(s ) SARS [facility] CORONAVIRUS 2 RNA This lab was ordered by [facility] and reported by [facility]. ID Date Data Source [id number] 04/08/2020 11:07:00 AM EDT [facility] Name Value Range Interpretation Code Description Data Estefania rce(s) Supporting Document(s ) SARS-COV-2 [facility] PCR This lab was ordered by [facility] and reported by [facility]. ID Date Data Source [id number] 04/01/2020 12:00:00 AM EDT [facility] Name Value Range Interpretation Code Description Data Estefania rce(s) Supporting Document(s ) SARS-CoV-2 [facility] RNA Resp Ql REGI+probe This lab was ordered by [facility] and reported by [facility]. ID Date Data Source [id number] 02/28/2020 04:52:00 PM EDT [facility] Name Value Range Interpretation Code Description Data Estefania rce(s) Supporting Document(s ) Overall [facility] Result: This lab was ordered by [facility] and reported by [facility]. Procedure
[2020-09-01 16:03] VITALS: BMI 27.7
[2020-09-01 17:12] LABS: ALBUMIN 3.7 g/dl (3.4-5.0); BILIRUBIN,TOTAL 1.1 mg/dL (0.2-1); BLOOD UREA NITROGEN 8.6 mg/dL (7-18); CALCIUM 8.8 mg/dL (8.5-10.1); CREATININE 0.9 mg/dL (0.55-1.3); POTASSIUM 3.9 mmol/L (3.5-5.1); TOT PROT 7.6 g/dl (6.4-8.2)
[2020-09-01 17:13] LABS: MCHC 34.3 g/dl (32.0-36.0); MEAN CELL VOLUME 99.2 fl (80-96); MEAN PLT VOLUME 10.8 fl (7.5-11.1); PLATELET COUNT 91 K/MM3 (134-434); RBC 3.53 M/mm3 (3.60-5.2); RDW 15.6 % (11.6-15.6); WHITE BLOOD COUNT 5.5 K/mm3 (4.0-10.0)
[2020-09-01] MEDS: NICOTINE 21 MG/24 HOURS TOPICAL PATCH TD SCH (17:13)
[2020-09-01] MEDS: hydrOXYzine PAMOATE 25 MG CAPSULE (FP) PO SCH ×2 (17:13→22:20)
[2020-09-01] MEDS: LORazepam 2 MG TABLET PO SCH ×2 (17:13→22:21)
[2020-09-01] MEDS: NICOTINE POLACRILEX 2 MG GUM BUC PRN (17:14)
[2020-09-01] MEDS: THIAMINE HCL 100 MG TABLET (FP) PO SCH (22:20)
[2020-09-01] MEDS: MELATONIN 5 MG TABLETS PO SCH (22:20)
[2020-09-02] MEDS: hydrOXYzine PAMOATE 25 MG CAPSULE (FP) PO SCH ×5 (05:41→22:03)
[2020-09-02] MEDS: LORazepam 2 MG TABLET PO SCH ×4 (05:41→22:03)
--- NOTE | 2020-09-02 08:35 | PN ---
Teaching Attending Note Name of Resident: Anjana Herrera ATTENDING PHYSICIAN STATEMENT I saw and evaluated the patient. I reviewed the resident's note and discussed the case with the resident. I agree with the resident's findings and plan as documented. SUBJECTIVE: OBJECTIVE: ASSESSMENT AND PLAN: 1. Alcohol use disorder, withdrawal Plan 1. Ativan detox protocol
[2020-09-02] MEDS ORDERED: LISINOPRIL 10 MG TABLET PO SCH (10:00)
[2020-09-02] MEDS: NICOTINE 21 MG/24 HOURS TOPICAL PATCH TD SCH (10:11)
[2020-09-02] MEDS: PRENATAL VITAMINS W/ FOLIC ACID TABLET (FP) PO SCH (10:11)
[2020-09-02] MEDS: LISINOPRIL 10 MG TABLET PO SCH (10:12)
[2020-09-02] MEDS: NICOTINE POLACRILEX 2 MG GUM BUC PRN ×4 (10:14→21:41)
[2020-09-02] MEDS ORDERED: cloNIDine HCL 0.1 MG TABLET PO PRN (10:44)
--- NOTE | 2020-09-02 10:45 | PN ---
S CIWA - CIWA Score Nausea/Vomitin-Mild Nausea/No Vomiting Muscle Tremors: 4-Moderate,w/Arms Extend Anxiety: 4-Mod. Anxious/Guarded Agitation: 3 Paroxysmal Sweats: 2 Orientation: 2-Disoriented Date<2 days (date of week day of month) Tacttile Disturbances: 1-Very Mild Itch/Numbness Auditory Disturbances: 0-None Visual Disturbances: 2-Mild Sensitivity Headache: 2-Mild CIWA-Ar Total Score: 21 [facility] Progress Note (SOAP) Subjective: 50 years old male was admitted on 09/01/20 for alcohol withdrawal sx management treating with alcohol withdrawal sx management tremor anxiety restlessness feels tired prefers to sleep longer in bed limited conversation with staff Objective: 09/02/20 10:42 Vital Signs - 24 hr 09/01/20 09/01/20 09/01/20 16:01 16:26 20:59 Temperature 97.7 F 97.7 F 97.7 F Pulse Rate 125 H 101 H 104 H Respiratory 12 18 18 Rate Blood Pressure 148/94 146/93 125/89 O2 Sat by Pulse 99 Oximetry (%) 09/02/20 09/02/20 06:36 08:42 Temperature 97.0 F L 97.5 F L Pulse Rate 85 81 Respiratory 18 16 Rate Blood Pressure 141/84 140/73 O2 Sat by Pulse 97 97 Oximetry (%) Laboratory Tests 09/01/20 09/01/20 09/01/20 15:30 15:30 15:30 WBC 5.5 RBC 3.53 L Hgb 12.0 Hct 35.0 MCV 99.2 H MCH 34.0 H MCHC 34.3 RDW 15.6 Plt Count 91 L MPV 10.8 Sodium 139 Potassium 3.9 Chloride 106 Carbon Dioxide 24 Anion Gap 9 BUN 8.6 Creatinine 0.9 Est GFR (CKD-EPI)AfAm 87.02 Est GFR (CKD-EPI)NonAf 75.08 Random Glucose 85 Calcium 8.8 Total Bilirubin 1.1 H AST 383 H ALT 273 H Alkaline Phosphatase 70 Total Protein 7.6 Albumin 3.7 Syphilis Serology Non-reactive bp elevation received first dose lisinopril 10 mg today around 10 am continue monitoring 09/02/20 10:43 Assessment: 09/02/20 10:45 alcohol withdrawal Plan: ativan regiment
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
[2020-09-02] MEDS: ESCITALOPRAM OXALATE 10 MG TABLET PO SCH (14:14)
[2020-09-02] MEDS: LORazepam 1 MG TABLET PO PRN (20:02)
[2020-09-02] MEDS: MELATONIN 5 MG TABLETS PO SCH (22:03)
[2020-09-02] MEDS: THIAMINE HCL 100 MG TABLET (FP) PO SCH (22:03)
[2020-09-03] MEDS: LORazepam 1 MG TABLET PO SCH ×4 (05:46→22:24)
[2020-09-03] MEDS: hydrOXYzine PAMOATE 25 MG CAPSULE (FP) PO SCH ×5 (05:46→22:24)
[2020-09-03] MEDS: ESCITALOPRAM OXALATE 10 MG TABLET PO SCH (10:09)
[2020-09-03] MEDS: NICOTINE 21 MG/24 HOURS TOPICAL PATCH TD SCH (10:09)
[2020-09-03] MEDS: LISINOPRIL 10 MG TABLET PO SCH (10:09)
[2020-09-03] MEDS: PRENATAL VITAMINS W/ FOLIC ACID TABLET (FP) PO SCH (10:10)
[2020-09-03] MEDS: NICOTINE POLACRILEX 2 MG GUM BUC PRN ×5 (10:11→21:15)
--- NOTE | 2020-09-03 11:38 | PN ---
S CIWA - CIWA Score Nausea/Vomitin-No Nausea/No Vomiting Muscle Tremors: None Anxiety: 3 Agitation: 0-Normal Activity Paroxysmal Sweats: 2 Orientation: 0-Oriented Tacttile Disturbances: 0-None Auditory Disturbances: 0-None Visual Disturbances: 0-None Headache: 2-Mild CIWA-Ar Total Score: 7 BHS Progress Note (SOAP) Subjective: c/o anxiety, headache, sweats, and tiredness. Objective: 09/03/20 11:34 Vital Signs 09/03/20 09/03/20 06:26 08:50 Temperature 97.5 F L 98.4 F Pulse Rate 69 69 Respiratory 18 18 Rate Blood Pressure 133/95 132/83 O2 Sat by Pulse 99 Oximetry (%) Assessment: 09/03/20 11:35 AOX3, in no acute respiratory distress. Full ROM, ambulating in the unit. Withdrawal symptoms. Plan: continue detox.
[2020-09-03] MEDS: LORazepam 1 MG TABLET PO PRN (13:03)
[2020-09-03] MEDS: THIAMINE HCL 100 MG TABLET (FP) PO SCH (22:24)
[2020-09-03] MEDS: MELATONIN 5 MG TABLETS PO SCH (22:24)
[2020-09-04] MEDS ORDERED: LORazepam 0.5 MG TABLET PO PRN
[2020-09-04] MEDS: hydrOXYzine PAMOATE 25 MG CAPSULE (FP) PO SCH ×5 (06:05→22:07)
[2020-09-04] MEDS: LORazepam 0.5 MG TABLET PO SCH ×4 (06:06→22:07)
[2020-09-04] MEDS: NICOTINE POLACRILEX 2 MG GUM BUC PRN ×5 (06:14→21:08)
[2020-09-04] MEDS: LISINOPRIL 10 MG TABLET PO SCH (10:33)
[2020-09-04] MEDS: NICOTINE 21 MG/24 HOURS TOPICAL PATCH TD SCH (10:33)
[2020-09-04] MEDS: PRENATAL VITAMINS W/ FOLIC ACID TABLET (FP) PO SCH (10:33)
[2020-09-04] MEDS: ESCITALOPRAM OXALATE 10 MG TABLET PO SCH (10:33)
--- NOTE | 2020-09-04 11:54 | PN ---
S CIWA - CIWA Score Nausea/Vomitin-No Nausea/No Vomiting Muscle Tremors: None Anxiety: 2 Agitation: 0-Normal Activity Paroxysmal Sweats: No Perspiration Orientation: 0-Oriented Tacttile Disturbances: 0-None Auditory Disturbances: 0-None Visual Disturbances: 0-None Headache: 0-None Present CIWA-Ar Total Score: 2 BHS Progress Note (SOAP) Subjective: Pt seen and examined at bedside this morning. Pt with improving withdrawal symptoms. Pt reporting fatigue and muscle cramps in bilateral legs. Objective: Last Vital Signs Temp Pulse Resp BP Pulse Ox 97.3 F L 92 H 17 124/81 100 09/04/20 09:00 09/04/20 09:00 09/04/20 09:00 09/04/20 09:00 09/04/20 09:00 Gen - AOx3; well-nourished; mildly anxious appearing CV - RRR, normal s1/s2 Pulm - CTAB Ext - moving all extremities equally/spontaneously; normal gait; pt's calf muscles are tense/tight on palpation; no calf-tenderness/edema/erythema Laboratory 09/01/20 09/01/20 09/01/20 15:30 15:30 15:30 WBC 5.5 K/mm3 K/mm3 (4.0-10.0) RBC 3.53 M/mm3 L M/mm3 (3.60-5.2) Hgb 12.0 GM/dL GM/dL (10.7-15.3) Hct 35.0 % % (32.4-45.2) MCV 99.2 fl H fl (80-96) MCH 34.0 pg H pg (25.7-33.7) MCHC 34.3 g/dl g/dl (32.0-36.0) RDW 15.6 % % (11.6-15.6) Plt Count 91 K/MM3 L K/MM3 (134-434) MPV 10.8 fl fl (7.5-11.1) Sodium 139 mmol/L mmol/L (136-145) Potassium 3.9 mmol/L mmol/L (3.5-5.1) Chloride 106 mmol/L mmol/L (98-107) Carbon Dioxide 24 mmol/L mmol/L (21-32) Anion Gap 9 MMOL/L MMOL/L (8-16) BUN 8.6 mg/dL mg/dL (7-18) Creatinine 0.9 mg/dL mg/dL (0.55-1.3) Est GFR (CKD-EPI)AfAm 87.02 Est GFR (CKD-EPI)NonAf 75.08 Random Glucose 85 mg/dL mg/dL (74-106) Calcium 8.8 mg/dL mg/dL (8.5-10.1) Total Bilirubin 1.1 mg/dL H mg/dL (0.2-1) AST 383 U/L H U/L (15-37) ALT 273 U/L H U/L (13-61) Alkaline Phosphatase 70 U/L U/L (45-117) Total Protein 7.6 g/dl g/dl (6.4-8.2) Albumin 3.7 g/dl g/dl (3.4-5.0) Syphilis Serology Non-reactive (NONREACTIVE) COVID-19 (REGI) 09/01/20 15:45 WBC RBC Hgb Hct MCV MCH MCHC RDW Plt Count MPV Sodium Potassium Chloride Carbon Dioxide Anion Gap BUN Creatinine Est GFR (CKD-EPI)AfAm Est GFR (CKD-EPI)NonAf Random Glucose Calcium Total Bilirubin AST ALT Alkaline Phosphatase Total Protein Albumin Syphilis Serology COVID-19 (REGI) Not detected (Not Detected) 09/04/20 11:50 09/04/20 11:52 Assessment: Pt with improving withdrawal symptoms. Anticipated discharge tomorrow. 09/04/20 11:52 Plan: Continue librium detox protocol Stretching of calf muscles and appropriate PO hydration encouraged for muscle cramps
[2020-09-04] MEDS: THIAMINE HCL 100 MG TABLET (FP) PO SCH (22:07)
[2020-09-04] MEDS: MELATONIN 5 MG TABLETS PO SCH (22:07)
[2020-09-05] MEDS ORDERED: LORazepam 0.5 MG TABLET PO ONE (05:00)
[2020-09-05] MEDS: hydrOXYzine PAMOATE 25 MG CAPSULE (FP) PO SCH (05:36)
[2020-09-05 06:34] VITALS: BP 129/76; PULSE 78; TEMP 97.2
[2020-09-05] MEDS: NICOTINE POLACRILEX 2 MG GUM BUC PRN (08:35)
--- NOTE | 2020-09-05 10:39 | DS ---
[facility] Detox Discharge Summary Admission Date: 09/01/20 Discharge Date: 09/05/20 - History Present History: Alcohol Dependence Additional Comments: Pt is medically cleared and discharged today. Pt completed the detox protocol. Pt is encouraged to follow-up with an outpatient CD program and also to follow- up with her pmd which she verbalized understanding. Pt is AOX3, in no acute respiratory distress, full ROM, and ambulatory. Pertinent Past History: h/o HTN and alcohol use disorder. - Physical Exam Results Vital Signs: Vital Signs Temperature 97.2 F L 09/05/20 06:34 Pulse Rate 78 09/05/20 06:34 Respiratory Rate 18 09/05/20 06:34 Blood Pressure 129/76 09/05/20 06:34 O2 Sat by Pulse Oximetry (%) 96 09/05/20 06:34 Vital Signs 09/05/20 06:34 Temperature 97.2 F L Pulse Rate 78 Respiratory 18 Rate Blood Pressure 129/76 O2 Sat by Pulse 96 Oximetry (%) Laboratory Last Values WBC 5.5 K/mm3 (4.0-10.0) 09/01/20 15:30 RBC 3.53 M/mm3 (3.60-5.2) L 09/01/20 15:30 Hgb 12.0 GM/dL (10.7-15.3) 09/01/20 15:30 Hct 35.0 % (32.4-45.2) 09/01/20 15:30 MCV 99.2 fl (80-96) H 09/01/20 15:30 MCH 34.0 pg (25.7-33.7) H 09/01/20 15:30 MCHC 34.3 g/dl (32.0-36.0) 09/01/20 15:30 RDW 15.6 % (11.6-15.6) 09/01/20 15:30 Plt Count 91 K/MM3 (134-434) L 09/01/20 15:30 MPV 10.8 fl (7.5-11.1) 09/01/20 15:30 Sodium 139 mmol/L (136-145) 09/01/20 15:30 Potassium 3.9 mmol/L (3.5-5.1) 09/01/20 15:30 Chloride 106 mmol/L (98-107) 09/01/20 15:30 Carbon Dioxide 24 mmol/L (21-32) 09/01/20 15:30 Anion Gap 9 MMOL/L (8-16) 09/01/20 15:30 BUN 8.6 mg/dL (7-18) 09/01/20 15:30 Creatinine 0.9 mg/dL (0.55-1.3) 09/01/20 15:30 Est GFR (CKD-EPI)AfAm 87.02 09/01/20 15:30 Est GFR (CKD-EPI)NonAf 75.08 09/01/20 15:30 Random Glucose 85 mg/dL (74-106) 09/01/20 15:30 Calcium 8.8 mg/dL (8.5-10.1) 09/01/20 15:30 Total Bilirubin 1.1 mg/dL (0.2-1) H 09/01/20 15:30 AST 383 U/L (15-37) H 09/01/20 15:30 ALT 273 U/L (13-61) H 09/01/20 15:30 Alkaline Phosphatase 70 U/L (45-117) 09/01/20 15:30 Total Protein 7.6 g/dl (6.4-8.2) 09/01/20 15:30 Albumin 3.7 g/dl (3.4-5.0) 09/01/20 15:30 Syphilis Serology Non-reactive (NONREACTIVE) 09/01/20 15:30 COVID-19 (REGI) Not detected (Not Detected) 09/01/20 15:45 Labs noted. Pertinent Admission Physical Exam Findings: withdrawal symptoms. - Treatment Hospital Course: Detox Protocol Followed, Detoxed Safely, Responded well, Discharged Condition Good - Medication Discharge Medications: Ambulatory Orders Escitalopram Oxalate [Lexapro -] 10 mg PO DAILY 09/01/20 Mirtazapine [Remeron -] 15 mg PO HS 09/01/20 Folic Acid - 1 mg PO DAILY 30 Days #30 tablet 09/04/20 Lisinopril [Prinivil] 10 mg PO DAILY 30 Days #30 tablet 09/04/20 Multivitamin [Multivitamins] 1 each PO DAILY 30 Days #30 tablet 09/04/20 - Diagnosis (1) Alcohol dependence with withdrawal, uncomplicated Current Visit: Yes Status: Acute (2) Nicotine dependence Current Visit: Yes Status: Chronic Qualifiers: Nicotine product type: cigarettes Substance use status: in withdrawal Qualified Code(s): F17.213 - Nicotine dependence, cigarettes, with withdrawal (3) HTN (hypertension) Current Visit: No Status: Chronic Qualifiers: Hypertension type: essential hypertension Qualified Code(s): I10 - Essential (primary) hypertension (4) Lupus Current Visit: No Status: Chronic - AMA Did Patient Leave Against Medical Advice: No
== END 2020-09-05 09:15 | disposition home or self-care (01) | DRG 775 ==
LOC: YASAS 13:49 → Y3N 15:32
PROVIDERS: ADMIT Allergy & Immunology; ATTEND Allergy & Immunology
PROC: HZ2ZZZZ Detoxification Services for Substance Abuse Treatment (ICD-10-PCS; principal; 2020-09-01)
DX: F10.230 Alcohol dependence with withdrawal, uncomplicated (principal); F17.213 Nicotine dependence, cigarettes, with withdrawal; F10.24 Alcohol dependence with alcohol-induced mood disorder; F33.0 Major depressive disorder, recurrent, mild; F43.10 Post-traumatic stress disorder, unspecified; F41.9 Anxiety disorder, unspecified; I10 Essential (primary) hypertension; L93.0 Discoid lupus erythematosus; R25.2 Cramp and spasm; Z91.410 Personal history of adult physical and sexual abuse; Z88.1 Allergy status to other antibiotic agents; Z88.8 Allergy status to other drugs, medicaments and biological substances; Z56.0 Unemployment, unspecified; Z59.0 Homelessness; Z87.440 Personal history of urinary (tract) infections
CPT/HCPCS: 36415; 80053; 85027; 86780; C9803; U0003

== ENCOUNTER 2020-11-23 10:27 | Inpatient (IN) | payer OTHER ==
[2020-11-23 11:24] VITALS: BMI 25.2
[2020-11-23] MEDS ORDERED: LORazepam 2 MG TABLET ONE (11:54)
[2020-11-23] MEDS ORDERED: LISINOPRIL 10 MG TABLET ONE (11:56)
[2020-11-23] MEDS: LISINOPRIL 10 MG TABLET PO SCH (12:00)
[2020-11-23] MEDS ORDERED: MAGNESIUM HYDROX 2400MG/30ML ORAL SUSPENSION 30 ML CUP PO PRN (12:06)
[2020-11-23] MEDS ORDERED: BISMUTH SUBSALICYLATE 262 MG/15 ML BTL PO PRN (12:06)
[2020-11-23] MEDS ORDERED: MAGNESIUM CITRATE 300 ML BOTTLE PO PRN (12:06)
[2020-11-23] MEDS ORDERED: IBUPROFEN 400 MG TABLET (FP) PO PRN (12:06)
[2020-11-23] MEDS ORDERED: MENTHOL/PHENOL 1 EACH UD MM PRN (12:06)
[2020-11-23] MEDS ORDERED: ONDANSETRON *ODT* 4 MG TABLET SL PRN (12:06)
[2020-11-23] MEDS ORDERED: MAG HYDROX/AL HYDROX/SIMETH 30 ML UNIT-DOSE CUP PO PRN (12:06)
[2020-11-23] MEDS ORDERED: METHOCARBAMOL 500 MG TABLET PO PRN (12:06)
[2020-11-23] MEDS ORDERED: ACETAMINOPHEN 325 MG TABLET (FP) PO PRN ×2 (12:06)
[2020-11-23] MEDS ORDERED: LORazepam 1 MG TABLET PO ONE (12:10)
[2020-11-23] MEDS: NICOTINE 14 MG/24 HOURS TOPICAL PATCH TD SCH (13:04)
[2020-11-23] MEDS: hydrOXYzine PAMOATE 25 MG CAPSULE (FP) PO SCH ×3 (13:04→22:35)
[2020-11-23] MEDS: LORazepam 1 MG TABLET PO PRN (15:02)
[2020-11-23] MEDS: LORazepam 2 MG TABLET PO SCH ×2 (16:58→22:35)
[2020-11-23 18:46] LABS: POTASSIUM 3.6 mmol/L (3.5-5.1)
[2020-11-23 18:48] LABS: CALCIUM 9.3 mg/dL (8.5-10.1)
[2020-11-23 18:49] LABS: ALBUMIN 3.6 g/dl (3.4-5.0)
[2020-11-23 18:51] LABS: HEMATOCRIT 35.8 % (32.4-45.2); HEMOGLOBIN 12.2 GM/dL (10.7-15.3); MCH 33.8 pg (25.7-33.7); MEAN CELL VOLUME 99.5 fl (80-96); MEAN PLT VOLUME 11.1 fl (7.5-11.1); PLATELET COUNT 146 K/MM3 (134-434); RDW 15.4 % (11.6-15.6)
[2020-11-23 18:52] LABS: CREATININE 0.8 mg/dL (0.55-1.3)
[2020-11-23 18:54] LABS: BILIRUBIN,TOTAL 1.3 mg/dL (0.2-1)
[2020-11-23] MEDS: MELATONIN 5 MG TABLETS PO SCH (22:35)
[2020-11-23] MEDS: THIAMINE HCL 100 MG TABLET (FP) PO SCH (22:35)
[2020-11-24] MEDS: hydrOXYzine PAMOATE 25 MG CAPSULE (FP) PO SCH ×5 (05:13→22:05)
[2020-11-24] MEDS: LORazepam 2 MG TABLET PO SCH ×4 (05:13→22:05)
[2020-11-24] MEDS: PRENATAL VITAMINS W/ FOLIC ACID TABLET (FP) PO SCH (10:20)
[2020-11-24] MEDS: LISINOPRIL 10 MG TABLET PO SCH (10:21)
[2020-11-24] MEDS: NICOTINE 14 MG/24 HOURS TOPICAL PATCH TD SCH (10:22)
[2020-11-24] MEDS: NICOTINE POLACRILEX 2 MG GUM BUC PRN ×3 (10:22→18:44)
[2020-11-24] MEDS ORDERED: MASKS NR ONE (16:36)
[2020-11-24] MEDS: MELATONIN 5 MG TABLETS PO SCH (22:05)
[2020-11-24] MEDS: THIAMINE HCL 100 MG TABLET (FP) PO SCH (22:05)
[2020-11-25] MEDS: hydrOXYzine PAMOATE 25 MG CAPSULE (FP) PO SCH ×3 (05:09→13:22)
[2020-11-25] MEDS: LORazepam 1 MG TABLET PO SCH ×2 (05:09→10:11)
[2020-11-25] MEDS: NICOTINE POLACRILEX 2 MG GUM BUC PRN ×3 (07:05→14:08)
[2020-11-25] MEDS ORDERED: ESCITALOPRAM OXALATE 10 MG TABLET PO SCH (10:00)
[2020-11-25] MEDS: PRENATAL VITAMINS W/ FOLIC ACID TABLET (FP) PO SCH (10:11)
[2020-11-25] MEDS: LISINOPRIL 10 MG TABLET PO SCH (10:11)
[2020-11-25] MEDS: NICOTINE 14 MG/24 HOURS TOPICAL PATCH TD SCH (10:12)
[2020-11-25 13:08] VITALS: BP 126/76; PULSE 71; TEMP 98
[2020-11-25] MEDS ORDERED: FLUCONAZOLE 150 MG TABLET PO ONE (13:16)
[2020-11-25] MEDS: LORazepam 1 MG TABLET PO PRN (13:22)
[2020-11-26] MEDS ORDERED: LORazepam 0.5 MG TABLET PO PRN
[2020-11-26] MEDS ORDERED: LORazepam 0.5 MG TABLET PO SCH (05:00)
[2020-11-27] MEDS ORDERED: LORazepam 0.5 MG TABLET PO ONE (05:00)
== END 2020-11-25 15:06 | disposition left against medical advice (07) | DRG 770 ==
LOC: YASAS 10:27 → Y3N 11:27
PROVIDERS: ADMIT Allergy & Immunology; ATTEND Allergy & Immunology
PROC: HZ2ZZZZ Detoxification Services for Substance Abuse Treatment (ICD-10-PCS; principal; 2020-11-23)
DX: F10.230 Alcohol dependence with withdrawal, uncomplicated (principal); F17.213 Nicotine dependence, cigarettes, with withdrawal; F33.0 Major depressive disorder, recurrent, mild; F41.0 Panic disorder [episodic paroxysmal anxiety]; I10 Essential (primary) hypertension; L93.0 Discoid lupus erythematosus; Z56.0 Unemployment, unspecified; Z91.018 Allergy to other foods; Z88.1 Allergy status to other antibiotic agents; Z88.8 Allergy status to other drugs, medicaments and biological substances; Z91.14 Patient's other noncompliance with medication regimen; Z87.81 Personal history of (healed) traumatic fracture; Z99.89 Dependence on other enabling machines and devices
CPT/HCPCS: 36415; 80053; 81025; 85027; 86780

== ENCOUNTER 2021-01-26 14:35 | Inpatient (IN) | payer OTHER ==
[2021-01-26] MEDS ORDERED: hydrOXYzine PAMOATE 25 MG CAPSULE (FP) PO ONE (15:32)
[2021-01-26] MEDS ORDERED: chlordiazePOXIDE HCL 25 MG CAPSULE ONE (15:32)
[2021-01-26] MEDS: hydrOXYzine PAMOATE 25 MG CAPSULE (FP) PO PRN ×3 (15:40→22:03)
[2021-01-26] MEDS: chlordiazePOXIDE HCL 25 MG CAPSULE PO PRN (15:40)
[2021-01-26 15:49] VITALS: BMI 26.6
[2021-01-26] MEDS ORDERED: MAGNESIUM HYDROX 2400MG/30ML ORAL SUSPENSION 30 ML CUP PO PRN (15:51)
[2021-01-26] MEDS ORDERED: ACETAMINOPHEN 325 MG TABLET (FP) PO PRN (15:51)
[2021-01-26] MEDS ORDERED: BISMUTH SUBSALICYLATE 524 MG/30 ML UD PO PRN (15:51)
[2021-01-26] MEDS ORDERED: IBUPROFEN 400 MG TABLET (FP) PO PRN (15:51)
[2021-01-26] MEDS ORDERED: MAG HYDROX/AL HYDROX/SIMETH 30 ML UNIT-DOSE CUP PO PRN (15:51)
[2021-01-26] MEDS ORDERED: MENTHOL/PHENOL 1 EACH UD MM PRN (15:51)
[2021-01-26] MEDS ORDERED: MAGNESIUM CITRATE 300 ML BOTTLE PO PRN (15:51)
[2021-01-26] MEDS ORDERED: ONDANSETRON *ODT* 4 MG TABLET SL PRN (15:51)
[2021-01-26] MEDS: chlordiazePOXIDE HCL 25 MG CAPSULE PO SCH ×2 (17:21→22:03)
[2021-01-26] MEDS: PRENATAL VITAMINS W/ FOLIC ACID TABLET (FP) PO SCH (17:21)
[2021-01-26] MEDS: METHOCARBAMOL 500 MG TABLET PO PRN (19:08)
[2021-01-26] MEDS ORDERED: MELATONIN 5 MG TABLETS PO SCH (22:00)
[2021-01-26] MEDS: THIAMINE HCL 100 MG TABLET (FP) PO SCH (22:03)
[2021-01-27] MEDS: chlordiazePOXIDE HCL 25 MG CAPSULE PO PRN (01:20)
[2021-01-27] MEDS: hydrOXYzine PAMOATE 25 MG CAPSULE (FP) PO PRN (02:52)
[2021-01-27] MEDS: chlordiazePOXIDE HCL 25 MG CAPSULE PO SCH ×2 (05:31→10:17)
[2021-01-27] MEDS: ACETAMINOPHEN 325 MG TABLET (FP) PO PRN (08:32)
[2021-01-27] MEDS: LISINOPRIL 10 MG TABLET PO SCH (10:17)
[2021-01-27] MEDS: NICOTINE 21 MG/24 HOURS TOPICAL PATCH TD SCH (10:19)
[2021-01-27] MEDS: PRENATAL VITAMINS W/ FOLIC ACID TABLET (FP) PO SCH (10:19)
[2021-01-27 10:35] LABS: HEMATOCRIT 36.6 % (32.4-45.2); HEMOGLOBIN 12.8 GM/dL (10.7-15.3); MCH 33.8 pg (25.7-33.7); MEAN CELL VOLUME 96.6 fl (80-96); MEAN PLT VOLUME 11.1 fl (7.5-11.1); PLATELET COUNT 52 K/MM3 (134-434); RBC 3.79 M/mm3 (3.60-5.2); RDW 15.3 % (11.6-15.6); WHITE BLOOD COUNT 5.9 K/mm3 (4.0-10.0)
[2021-01-27 11:06] LABS: POTASSIUM 3.3 mmol/L (3.5-5.1)
[2021-01-27 11:11] LABS: ALBUMIN 3.5 g/dl (3.4-5.0)
[2021-01-27 11:13] LABS: BLOOD UREA NITROGEN 6.5 mg/dL (7-18)
[2021-01-27 11:15] LABS: CREATININE 0.5 mg/dL (0.55-1.3)
[2021-01-27 11:17] LABS: BILIRUBIN,TOTAL 1.1 mg/dL (0.2-1)
[2021-01-27 11:18] LABS: CALCIUM 9.1 mg/dL (8.5-10.1); TOT PROT 7.8 g/dl (6.4-8.2)
[2021-01-27] MEDS: LORazepam 1 MG TABLET PO PRN (13:58)
[2021-01-27] MEDS: NICOTINE POLACRILEX 2 MG GUM BUC PRN ×2 (15:28→21:05)
[2021-01-27] MEDS: METHOCARBAMOL 500 MG TABLET PO PRN (15:55)
[2021-01-27] MEDS ORDERED: POTASSIUM CHLORIDE ORAL LIQUID 20 MEQ/15 ML PO ONE (17:44)
[2021-01-27] MEDS: LORazepam 2 MG TABLET PO SCH ×2 (18:23→22:06)
[2021-01-27] MEDS: POTASSIUM CHLORIDE ORAL LIQUID 20 MEQ/15 ML PO SCH (22:06)
[2021-01-27] MEDS: THIAMINE HCL 100 MG TABLET (FP) PO SCH (22:06)
[2021-01-27] MEDS: MELATONIN 5 MG TABLETS PO PRN (22:08)
[2021-01-28] MEDS: LORazepam 1 MG TABLET PO PRN ×2 (01:38→14:32)
[2021-01-28] MEDS: NICOTINE POLACRILEX 2 MG GUM BUC PRN ×2 (01:38→17:50)
[2021-01-28] MEDS ORDERED: chlordiazePOXIDE HCL 25 MG CAPSULE PO SCH (05:00)
[2021-01-28] MEDS: LORazepam 2 MG TABLET PO SCH ×4 (06:01→22:03)
[2021-01-28] MEDS: ACETAMINOPHEN 325 MG TABLET (FP) PO PRN (06:24)
[2021-01-28] MEDS: POTASSIUM CHLORIDE ORAL LIQUID 20 MEQ/15 ML PO SCH ×2 (10:41→22:03)
[2021-01-28] MEDS: LISINOPRIL 10 MG TABLET PO SCH (10:41)
[2021-01-28] MEDS: PRENATAL VITAMINS W/ FOLIC ACID TABLET (FP) PO SCH (10:45)
[2021-01-28] MEDS: NICOTINE 21 MG/24 HOURS TOPICAL PATCH TD SCH (10:45)
[2021-01-28 13:03] LABS: HEMATOCRIT 36.2 % (32.4-45.2); HEMOGLOBIN 12.3 GM/dL (10.7-15.3); MCH 33.4 pg (25.7-33.7); MCHC 33.9 g/dl (32.0-36.0); MEAN CELL VOLUME 98.4 fl (80-96); MEAN PLT VOLUME 10.8 fl (7.5-11.1); PLATELET COUNT 47 K/MM3 (134-434); RBC 3.68 M/mm3 (3.60-5.2); RDW 15.8 % (11.6-15.6); WHITE BLOOD COUNT 5.6 K/mm3 (4.0-10.0)
[2021-01-28 13:04] LABS: POTASSIUM 3.7 mmol/L (3.5-5.1)
[2021-01-28 13:06] LABS: INR 1.05 (0.83-1.09); PROTHROMBIN TIME (PATIENT) 12.9 SEC (9.7-13.0)
[2021-01-28 13:12] LABS: ALBUMIN 3.4 g/dl (3.4-5.0)
[2021-01-28 13:16] LABS: CREATININE 0.6 mg/dL (0.55-1.3)
[2021-01-28 13:18] LABS: BILIRUBIN,TOTAL 1.4 mg/dL (0.2-1); CALCIUM 9.4 mg/dL (8.5-10.1); TOT PROT 7.6 g/dl (6.4-8.2)
[2021-01-28] MEDS ORDERED: LACTULOSE 20 GM/30 ML UDC (FOR ORAL USE ONLY) PO ONE (18:31)
[2021-01-28] MEDS: LACTULOSE 20 GM/30 ML UDC (FOR ORAL USE ONLY) PO SCH (22:02)
[2021-01-28] MEDS: THIAMINE HCL 100 MG TABLET (FP) PO SCH (22:03)
[2021-01-28] MEDS: MELATONIN 5 MG TABLETS PO PRN (22:07)
[2021-01-28] MEDS: hydrOXYzine PAMOATE 25 MG CAPSULE (FP) PO PRN (23:30)
[2021-01-29] MEDS ORDERED: chlordiazePOXIDE HCL 10 MG CAPSULE PO PRN
[2021-01-29] MEDS: METHOCARBAMOL 500 MG TABLET PO PRN (00:55)
[2021-01-29] MEDS: LORazepam 1 MG TABLET PO PRN (00:55)
[2021-01-29] MEDS: NICOTINE POLACRILEX 2 MG GUM BUC PRN ×3 (00:58→11:48)
[2021-01-29] MEDS: LORazepam 1 MG TABLET PO SCH ×2 (04:32→11:54)
[2021-01-29] MEDS ORDERED: chlordiazePOXIDE HCL 10 MG CAPSULE PO SCH (05:00)
[2021-01-29] MEDS: LACTULOSE 20 GM/30 ML UDC (FOR ORAL USE ONLY) PO SCH ×2 (11:55→15:18)
[2021-01-29] MEDS: NICOTINE 21 MG/24 HOURS TOPICAL PATCH TD SCH (11:55)
[2021-01-29] MEDS: POTASSIUM CHLORIDE ORAL LIQUID 20 MEQ/15 ML PO SCH (11:55)
[2021-01-29] MEDS: LISINOPRIL 10 MG TABLET PO SCH (11:56)
[2021-01-29] MEDS: PRENATAL VITAMINS W/ FOLIC ACID TABLET (FP) PO SCH (11:56)
[2021-01-29 14:01] VITALS: BP 113/77; PULSE 91; TEMP 97
[2021-01-29] MEDS: hydrOXYzine PAMOATE 25 MG CAPSULE (FP) PO PRN (15:18)
[2021-01-29 15:31] LABS: POTASSIUM 4.2 mmol/L (3.5-5.1)
[2021-01-29 15:32] LABS: HEMATOCRIT 35.5 % (32.4-45.2); HEMOGLOBIN 11.7 GM/dL (10.7-15.3); MCH 32.8 pg (25.7-33.7); MEAN CELL VOLUME 99.4 fl (80-96); MEAN PLT VOLUME 12.2 fl (7.5-11.1); PLATELET COUNT 52 K/MM3 (134-434); RBC 3.57 M/mm3 (3.60-5.2); RDW 15.7 % (11.6-15.6)
[2021-01-29 15:34] LABS: ALBUMIN 3.6 g/dl (3.4-5.0); BLOOD UREA NITROGEN 7.5 mg/dL (7-18)
[2021-01-29 15:35] LABS: CALCIUM 9.9 mg/dL (8.5-10.1)
[2021-01-29 15:37] LABS: CREATININE 0.6 mg/dL (0.55-1.3)
[2021-01-29 15:38] LABS: BILIRUBIN,TOTAL 0.9 mg/dL (0.2-1); TOT PROT 7.7 g/dl (6.4-8.2)
[2021-01-30] MEDS ORDERED: LORazepam 0.5 MG TABLET PO PRN
[2021-01-30] MEDS ORDERED: chlordiazePOXIDE HCL 10 MG CAPSULE PO SCH (05:00)
[2021-01-30] MEDS ORDERED: LORazepam 0.5 MG TABLET PO SCH (05:00)
[2021-01-31] MEDS ORDERED: chlordiazePOXIDE HCL 10 MG CAPSULE PO ONE (05:00)
[2021-01-31] MEDS ORDERED: LORazepam 0.5 MG TABLET PO ONE (05:00)
== END 2021-01-29 17:30 | disposition left against medical advice (07) | DRG 770 ==
LOC: YASAS 14:35 → Y6N 16:49
PROVIDERS: ADMIT Allergy & Immunology; ATTEND Allergy & Immunology
PROC: HZ2ZZZZ Detoxification Services for Substance Abuse Treatment (ICD-10-PCS; principal; 2021-01-26)
DX: F10.230 Alcohol dependence with withdrawal, uncomplicated (principal); F17.210 Nicotine dependence, cigarettes, uncomplicated; F10.280 Alcohol dependence with alcohol-induced anxiety disorder; F19.282 Other psychoactive substance dependence with psychoactive substance-induced sleep disorder; F33.0 Major depressive disorder, recurrent, mild; F43.10 Post-traumatic stress disorder, unspecified; D69.6 Thrombocytopenia, unspecified; I10 Essential (primary) hypertension; L93.0 Discoid lupus erythematosus; R63.8 Other symptoms and signs concerning food and fluid intake; R79.89 Other specified abnormal findings of blood chemistry; Z91.14 Patient's other noncompliance with medication regimen; Z88.1 Allergy status to other antibiotic agents; Z88.8 Allergy status to other drugs, medicaments and biological substances; Z91.018 Allergy to other foods
CPT/HCPCS: 36415; 80053; 81025; 82140; 85027; 85610; 86780; C9803; U0003

== ENCOUNTER 2021-08-03 14:50 | Inpatient (IN) | payer OTHER ==
[2021-08-03] MEDS ORDERED: ONDANSETRON *ODT* 4 MG TABLET SL PRN (19:46)
[2021-08-03] MEDS ORDERED: BISMUTH SUBSALICYLATE 524 MG/30 ML PO PRN (19:46)
[2021-08-03] MEDS ORDERED: MAG HYDROX/AL HYDROX/SIMETH 30 ML UNIT-DOSE CUP PO PRN (19:46)
[2021-08-03] MEDS ORDERED: MAGNESIUM HYDROX 2400MG/30ML ORAL SUSPENSION 30 ML CUP PO PRN (19:46)
[2021-08-03] MEDS ORDERED: guaiFENesin 200 MG/10 ML 10 ML UNIT-DOSE CUPS PO PRN (19:46)
[2021-08-03] MEDS ORDERED: P-EPHED 60MG/TRIPROLIDI 2.5MG TABLET PO PRN (19:46)
[2021-08-03] MEDS ORDERED: DICYCLOMINE HCL 10 MG CAPSULE PO PRN (19:46)
[2021-08-03] MEDS ORDERED: NICOTINE 10 MG CARTRIDGE (INHALER) IH PRN (19:46)
[2021-08-03] MEDS ORDERED: IBUPROFEN 400 MG TABLET (FP) PO PRN (19:46)
[2021-08-03] MEDS ORDERED: ACETAMINOPHEN 325 MG TABLET (FP) PO PRN ×2 (19:46)
[2021-08-03] MEDS ORDERED: METHOCARBAMOL 500 MG TABLET PO PRN (19:46)
[2021-08-03] MEDS ORDERED: MENTHOL/PHENOL 1 EACH UD MM PRN (19:46)
[2021-08-03] MEDS ORDERED: MAGNESIUM CITRATE 300 ML BOTTLE PO PRN (19:46)
[2021-08-03] MEDS: diazePAM 5 MG TABLET PO PRN (20:08)
[2021-08-03 20:12] VITALS: BMI 23.9
[2021-08-03] MEDS ORDERED: THIAMINE HCL 100 MG TABLET (FP) PO SCH (22:00)
[2021-08-03] MEDS ORDERED: MELATONIN 5 MG TABLETS PO SCH (22:00)
[2021-08-03] MEDS: diazePAM 5 MG TABLET PO SCH (22:19)
[2021-08-04] MEDS: diazePAM 5 MG TABLET PO SCH ×3 (05:29→17:24)
[2021-08-04] MEDS: hydrOXYzine PAMOATE 25 MG CAPSULE (FP) PO PRN ×2 (05:29→10:28)
[2021-08-04] MEDS ORDERED: NICOTINE 14 MG/24 HOURS TOPICAL PATCH TD SCH (10:00)
[2021-08-04] MEDS ORDERED: PRENATAL VITAMINS W/ FOLIC ACID TABLET (FP) PO SCH (10:00)
[2021-08-04] MEDS: diazePAM 5 MG TABLET PO PRN (12:41)
[2021-08-04 12:51] LABS: HEMATOCRIT 36.5 % (32.4-45.2); HEMOGLOBIN 12.8 GM/dL (10.7-15.3); MCH 32.6 pg (25.7-33.7); MEAN CELL VOLUME 93.2 fl (80-96); MEAN PLT VOLUME 9.4 fl (7.5-11.1); RBC 3.92 M/mm3 (3.60-5.2); RDW 14.3 % (11.6-15.6)
[2021-08-04 13:04] LABS: CALCIUM 9.3 mg/dL (8.5-10.1)
[2021-08-04 13:05] LABS: ALBUMIN 3.3 g/dl (3.4-5.0)
[2021-08-04 13:08] LABS: CREATININE 0.7 mg/dL (0.55-1.3)
[2021-08-04 13:10] LABS: BILIRUBIN,TOTAL 1.2 mg/dL (0.2-1); TOT PROT 8.5 g/dl (6.4-8.2)
[2021-08-04 14:07] LABS: PLATELET COUNT 83 10^3/uL (134-434)
[2021-08-04 15:14] VITALS: BP 127/68; PULSE 96; TEMP 98.2
[2021-08-05] MEDS ORDERED: diazePAM 5 MG TABLET PO SCH (06:00)
[2021-08-05] MEDS ORDERED: LISINOPRIL 10 MG TABLET PO SCH (10:00)
[2021-08-06] MEDS ORDERED: diazePAM 5 MG TABLET PO SCH (06:00)
[2021-08-07] MEDS ORDERED: diazePAM 5 MG TABLET PO ONE (06:00)
== END 2021-08-04 18:39 | disposition left against medical advice (07) | DRG 770 ==
LOC: YASAS 14:50 → Y3N 19:41
PROVIDERS: ADMIT Allergy & Immunology; ATTEND Allergy & Immunology
PROC: HZ2ZZZZ Detoxification Services for Substance Abuse Treatment (ICD-10-PCS; principal; 2021-08-03)
DX: F10.230 Alcohol dependence with withdrawal, uncomplicated (principal); F17.210 Nicotine dependence, cigarettes, uncomplicated; F10.24 Alcohol dependence with alcohol-induced mood disorder; I10 Essential (primary) hypertension; L93.0 Discoid lupus erythematosus; R25.3 Fasciculation; R63.8 Other symptoms and signs concerning food and fluid intake; R45.89 Other symptoms and signs involving emotional state; Z99.89 Dependence on other enabling machines and devices; Z88.1 Allergy status to other antibiotic agents; Z88.8 Allergy status to other drugs, medicaments and biological substances; Z91.018 Allergy to other foods; Z59.0 Homelessness
CPT/HCPCS: 36415; 80053; 81025; 82140; 85027; 86780; C9803; U0003; U0005

== ENCOUNTER 2021-11-01 09:23 | Inpatient (IN) | payer OTHER ==
[2021-11-01 09:44] VITALS: BMI 26.3
[2021-11-01] MEDS ORDERED: MAGNESIUM CITRATE 300 ML BOTTLE PO PRN (09:59)
[2021-11-01] MEDS ORDERED: MAG HYDROX/AL HYDROX/SIMETH 30 ML UNIT-DOSE CUP PO PRN (09:59)
[2021-11-01] MEDS ORDERED: BISMUTH SUBSALICYLATE 262 MG/15 ML BTL PO PRN (09:59)
[2021-11-01] MEDS ORDERED: ACETAMINOPHEN 325 MG TABLET (FP) PO PRN (09:59)
[2021-11-01] MEDS ORDERED: MENTHOL/PHENOL 1 EACH UD MM PRN (09:59)
[2021-11-01] MEDS ORDERED: ONDANSETRON *ODT* 4 MG TABLET SL PRN (09:59)
[2021-11-01] MEDS ORDERED: IBUPROFEN 400 MG TABLET (FP) PO PRN (09:59)
[2021-11-01] MEDS ORDERED: MAGNESIUM HYDROX 2400MG/30ML ORAL SUSPENSION 30 ML CUP PO PRN (09:59)
[2021-11-01] MEDS: LORazepam 2 MG TABLET PO SCH ×3 (10:35→23:23)
[2021-11-01] MEDS: hydrOXYzine PAMOATE 25 MG CAPSULE (FP) PO SCH ×4 (11:30→23:22)
[2021-11-01] MEDS: NICOTINE 14 MG/24 HOURS TOPICAL PATCH TD SCH (11:31)
[2021-11-01] MEDS: PRENATAL VITAMINS W/ FOLIC ACID TABLET (FP) PO SCH (11:33)
[2021-11-01] MEDS: LORazepam 1 MG TABLET PO PRN ×2 (11:38→15:11)
[2021-11-01 15:19] LABS: HEMATOCRIT 39.4 % (32.4-45.2); HEMOGLOBIN 13.6 GM/dL (10.7-15.3); MCH 34.2 pg (25.7-33.7); MCHC 34.6 g/dl (32.0-36.0); MEAN PLT VOLUME 11.1 fl (7.5-11.1); PLATELET COUNT 46 10^3/uL (134-434); RBC 3.98 M/mm3 (3.60-5.2); RDW 14.5 % (11.6-15.6); WHITE BLOOD COUNT 6.6 K/mm3 (4.0-10.0)
[2021-11-01 15:28] LABS: CALCIUM 9.4 mg/dL (8.5-10.1)
[2021-11-01 15:31] LABS: ALBUMIN 3.3 g/dl (3.4-5.0); BLOOD UREA NITROGEN 11.1 mg/dL (7-18)
[2021-11-01 15:34] LABS: CREATININE 0.7 mg/dL (0.55-1.3)
[2021-11-01 15:36] LABS: TOT PROT 8.3 g/dl (6.4-8.2)
[2021-11-01 15:37] LABS: BILIRUBIN,TOTAL 0.9 mg/dL (0.2-1)
[2021-11-01] MEDS: THIAMINE HCL 100 MG TABLET (FP) PO SCH (23:22)
[2021-11-01] MEDS: MELATONIN 5 MG TABLETS PO SCH (23:22)
[2021-11-02] MEDS: LORazepam 1 MG TABLET PO PRN ×3 (02:44→19:57)
[2021-11-02] MEDS: LORazepam 2 MG TABLET PO SCH ×5 (06:26→22:48)
[2021-11-02] MEDS: hydrOXYzine PAMOATE 25 MG CAPSULE (FP) PO SCH ×6 (06:27→22:48)
[2021-11-02] MEDS: PRENATAL VITAMINS W/ FOLIC ACID TABLET (FP) PO SCH (10:55)
[2021-11-02] MEDS: NICOTINE 14 MG/24 HOURS TOPICAL PATCH TD SCH (11:13)
[2021-11-02] MEDS: METHOCARBAMOL 500 MG TABLET PO PRN (13:39)
[2021-11-02] MEDS: NICOTINE 10 MG CARTRIDGE (INHALER) IH PRN (17:47)
[2021-11-02] MEDS: ACETAMINOPHEN 325 MG TABLET (FP) PO PRN (19:55)
[2021-11-02] MEDS: THIAMINE HCL 100 MG TABLET (FP) PO SCH (22:48)
[2021-11-02] MEDS: MELATONIN 5 MG TABLETS PO SCH (22:49)
[2021-11-03] MEDS: LORazepam 1 MG TABLET PO SCH ×4 (06:45→22:14)
[2021-11-03] MEDS: hydrOXYzine PAMOATE 25 MG CAPSULE (FP) PO SCH ×5 (06:45→22:13)
[2021-11-03] MEDS: NICOTINE 14 MG/24 HOURS TOPICAL PATCH TD SCH (11:03)
[2021-11-03] MEDS: PRENATAL VITAMINS W/ FOLIC ACID TABLET (FP) PO SCH (11:04)
[2021-11-03] MEDS: FLUTICASONE PROP 0.05% 16 GM NASAL SPRAY NS SCH (11:07)
[2021-11-03] MEDS: LACTULOSE 20 GM/30 ML UDC (FOR ORAL USE ONLY) PO SCH ×2 (14:59→22:13)
[2021-11-03] MEDS: LORazepam 1 MG TABLET PO PRN ×2 (15:01→19:38)
[2021-11-03] MEDS: METHOCARBAMOL 500 MG TABLET PO PRN (17:48)
[2021-11-03] MEDS: THIAMINE HCL 100 MG TABLET (FP) PO SCH (22:13)
[2021-11-03] MEDS: MELATONIN 5 MG TABLETS PO SCH (22:13)
[2021-11-03] MEDS ORDERED: cloNIDine HCL 0.1 MG TABLET PO ONE (23:12)
[2021-11-03] MEDS ORDERED: LORazepam 2 MG/ML SDV VIAL IM ONE (23:15)
[2021-11-03] MEDS: ACETAMINOPHEN 325 MG TABLET (FP) PO PRN (23:16)
[2021-11-04] MEDS: hydrOXYzine PAMOATE 25 MG CAPSULE (FP) PO SCH ×6 (06:27→22:03)
[2021-11-04] MEDS: LORazepam 0.5 MG TABLET PO SCH ×5 (06:27→22:03)
[2021-11-04] MEDS: PRENATAL VITAMINS W/ FOLIC ACID TABLET (FP) PO SCH (10:14)
[2021-11-04] MEDS: NICOTINE 14 MG/24 HOURS TOPICAL PATCH TD SCH (10:14)
[2021-11-04] MEDS: FLUTICASONE PROP 0.05% 16 GM NASAL SPRAY NS SCH (10:17)
[2021-11-04 12:42] LABS: ALBUMIN 2.9 g/dl (3.4-5.0)
[2021-11-04 12:45] LABS: BILIRUBIN,DIRECT 0.3 mg/dL (0.0-0.2)
[2021-11-04 12:47] LABS: TOT PROT 7.5 g/dl (6.4-8.2)
[2021-11-04] MEDS: LORazepam 0.5 MG TABLET PO PRN ×2 (15:56→19:33)
[2021-11-04] MEDS: LACTULOSE 20 GM/30 ML UDC (FOR ORAL USE ONLY) PO SCH ×2 (17:56→22:02)
[2021-11-04] MEDS: METHOCARBAMOL 500 MG TABLET PO PRN (18:44)
[2021-11-04] MEDS: MELATONIN 5 MG TABLETS PO SCH (22:03)
[2021-11-04] MEDS: THIAMINE HCL 100 MG TABLET (FP) PO SCH (22:03)
[2021-11-05] MEDS ORDERED: LORazepam 0.5 MG TABLET PO ONE (05:00)
[2021-11-05] MEDS: hydrOXYzine PAMOATE 25 MG CAPSULE (FP) PO SCH ×2 (06:00→09:05)
[2021-11-05] MEDS: LACTULOSE 20 GM/30 ML UDC (FOR ORAL USE ONLY) PO SCH (09:06)
[2021-11-05] MEDS: PRENATAL VITAMINS W/ FOLIC ACID TABLET (FP) PO SCH (10:32)
[2021-11-05] MEDS: NICOTINE 10 MG CARTRIDGE (INHALER) IH PRN (10:34)
[2021-11-05] MEDS: FLUTICASONE PROP 0.05% 16 GM NASAL SPRAY NS SCH (10:46)
[2021-11-05] MEDS: NICOTINE 14 MG/24 HOURS TOPICAL PATCH TD SCH (10:46)
[2021-11-05 11:07] VITALS: BP 113/71; PULSE 75; TEMP 98.6
== END 2021-11-05 12:22 | disposition home or self-care (01) | DRG 775 ==
LOC: YASAS 09:23 → Y3N 10:25
PROVIDERS: ADMIT Allergy & Immunology; ATTEND Allergy & Immunology
PROC: HZ2ZZZZ Detoxification Services for Substance Abuse Treatment (ICD-10-PCS; principal; 2021-11-01)
DX: F10.230 Alcohol dependence with withdrawal, uncomplicated (principal); F17.210 Nicotine dependence, cigarettes, uncomplicated; F43.10 Post-traumatic stress disorder, unspecified; F33.0 Major depressive disorder, recurrent, mild; I10 Essential (primary) hypertension; R00.0 Tachycardia, unspecified; R94.5 Abnormal results of liver function studies; R74.01 Elevation of levels of liver transaminase levels; R22.2 Localized swelling, mass and lump, trunk; G47.00 Insomnia, unspecified; M32.9 Systemic lupus erythematosus, unspecified; Z88.1 Allergy status to other antibiotic agents; Z88.8 Allergy status to other drugs, medicaments and biological substances
CPT/HCPCS: 36415; 80053; 80076; 81025; 82140; 85027; 86780; C9803; J0735; Q0162; U0003; U0005

== ENCOUNTER 2022-03-06 11:10 | Inpatient (IN) | payer OTHER ==
[2022-03-06 11:43] VITALS: BMI 23.5
[2022-03-06] MEDS ORDERED: DICYCLOMINE HCL 10 MG CAPSULE PO PRN (11:44)
[2022-03-06] MEDS ORDERED: BENZOCAINE/MENTHOL (CHLORASEPTIC ) LOZENGE MM PRN (11:44)
[2022-03-06] MEDS ORDERED: P-EPHED 60MG/TRIPROLIDI 2.5MG TABLET PO PRN (11:44)
[2022-03-06] MEDS ORDERED: MAG HYDROX/AL HYDROX/SIMETH 30 ML UNIT-DOSE CUP PO PRN (11:44)
[2022-03-06] MEDS ORDERED: MAGNESIUM CITRATE 300 ML BOTTLE PO PRN (11:44)
[2022-03-06] MEDS ORDERED: ACETAMINOPHEN 325 MG TABLET (FP) PO PRN (11:44)
[2022-03-06] MEDS ORDERED: IBUPROFEN 400 MG TABLET (FP) PO PRN (11:44)
[2022-03-06] MEDS ORDERED: MAGNESIUM HYDROX 2400MG/30ML ORAL SUSPENSION 30 ML CUP PO PRN (11:44)
[2022-03-06] MEDS ORDERED: LOPERAMIDE HCL 2 MG CAPSULE PO PRN (11:44)
[2022-03-06] MEDS ORDERED: ONDANSETRON *ODT* 4 MG TABLET SL PRN (11:44)
[2022-03-06] MEDS ORDERED: BISMUTH SUBSALICYLATE 524 MG/30 ML PO PRN (11:44)
[2022-03-06] MEDS ORDERED: diazePAM 5 MG TABLET PO ONE (11:47)
[2022-03-06] MEDS ORDERED: METOPROLOL TARTRATE 25 MG TABLET (FP) PO ONE (11:48)
[2022-03-06] MEDS: PRENATAL VITAMINS W/ FOLIC ACID TABLET (FP) PO SCH (13:51)
[2022-03-06] MEDS: ACETAMINOPHEN 325 MG TABLET (FP) PO PRN ×2 (14:46→17:26)
[2022-03-06] MEDS: diazePAM 5 MG TABLET PO SCH ×2 (17:28→22:11)
[2022-03-06] MEDS: MELATONIN 5 MG TABLETS PO PRN (22:11)
[2022-03-06] MEDS: THIAMINE HCL 100 MG TABLET (FP) PO SCH (22:11)
[2022-03-07] MEDS: diazePAM 5 MG TABLET PO SCH ×4 (04:40→22:16)
[2022-03-07] MEDS: PRENATAL VITAMINS W/ FOLIC ACID TABLET (FP) PO SCH (10:10)
[2022-03-07] MEDS: ACETAMINOPHEN 325 MG TABLET (FP) PO PRN (10:10)
[2022-03-07] MEDS ORDERED: cloNIDine HCL 0.1 MG TABLET PO PRN (10:33)
[2022-03-07 11:24] LABS: HEMATOCRIT 37.6 % (32.4-45.2); HEMOGLOBIN 12.6 GM/dL (10.7-15.3); MCH 33.7 pg (25.7-33.7); MCHC 33.5 g/dl (32.0-36.0); MEAN CELL VOLUME 100.7 fl (80-96); MEAN PLT VOLUME 10.9 fl (7.5-11.1); PLATELET COUNT 46 10^3/uL (134-434); RBC 3.73 M/mm3 (3.60-5.2); RDW 14.7 % (11.6-15.6); WHITE BLOOD COUNT 2.9 K/mm3 (4.0-10.0)
[2022-03-07 12:18] LABS: ALBUMIN 3.6 g/dl (3.4-5.0); BILIRUBIN,TOTAL 1.2 mg/dL (0.2-1); BLOOD UREA NITROGEN 7.9 mg/dL (7-18); CREATININE 0.5 mg/dL (0.55-1.3); TOT PROT 7.9 g/dl (6.4-8.2)
[2022-03-07] MEDS: hydrOXYzine PAMOATE 25 MG CAPSULE (FP) PO PRN ×2 (12:48→18:57)
[2022-03-07] MEDS: diazePAM 5 MG TABLET PO PRN ×2 (14:44→18:21)
[2022-03-07] MEDS: LACTULOSE 20 GM/30 ML UDC (FOR ORAL USE ONLY) PO SCH ×2 (18:18→22:15)
[2022-03-07] MEDS ORDERED: LORazepam 2 MG/ML SDV VIAL IM ONE (19:04)
[2022-03-07] MEDS: MELATONIN 5 MG TABLETS PO PRN (22:16)
[2022-03-07] MEDS: METHOCARBAMOL 500 MG TABLET PO PRN (22:17)
[2022-03-07] MEDS: THIAMINE HCL 100 MG TABLET (FP) PO SCH (22:17)
[2022-03-08] MEDS ORDERED: diazePAM 5 MG TABLET PO SCH (06:00)
[2022-03-08] MEDS: METHOCARBAMOL 500 MG TABLET PO PRN (06:19)
[2022-03-08] MEDS: PRENATAL VITAMINS W/ FOLIC ACID TABLET (FP) PO SCH (10:27)
[2022-03-08] MEDS: LACTULOSE 20 GM/30 ML UDC (FOR ORAL USE ONLY) PO SCH (10:28)
[2022-03-08] MEDS: diazePAM 5 MG TABLET PO PRN (10:29)
[2022-03-08] MEDS: hydrOXYzine PAMOATE 25 MG CAPSULE (FP) PO PRN (12:12)
[2022-03-08 12:52] VITALS: BP 125/68; PULSE 77; TEMP 97.5
[2022-03-09] MEDS ORDERED: diazePAM 5 MG TABLET PO SCH (06:00)
[2022-03-10] MEDS ORDERED: diazePAM 5 MG TABLET PO ONE (06:00)
== END 2022-03-08 14:21 | disposition home or self-care (01) | DRG 775 ==
LOC: YASAS 11:10 → Y3N 12:04
PROVIDERS: ADMIT Allergy & Immunology; ATTEND Allergy & Immunology
PROC: HZ2ZZZZ Detoxification Services for Substance Abuse Treatment (ICD-10-PCS; principal; 2022-03-06)
DX: F10.230 Alcohol dependence with withdrawal, uncomplicated (principal); F17.210 Nicotine dependence, cigarettes, uncomplicated; I10 Essential (primary) hypertension; L93.0 Discoid lupus erythematosus; R78.9 Finding of unspecified substance, not normally found in blood; Z87.19 Personal history of other diseases of the digestive system; Z88.1 Allergy status to other antibiotic agents; Z88.8 Allergy status to other drugs, medicaments and biological substances; Z91.018 Allergy to other foods
CPT/HCPCS: 36415; 80053; 81025; 82140; 85027; 86780; 87811; C9803-CS; J0735; U0003; U0005

== ENCOUNTER 2022-11-06 12:03 | Inpatient (IN) | payer OTHER ==
[2022-11-06 14:10] VITALS: BMI 21.9
[2022-11-06] MEDS ORDERED: IBUPROFEN 400 MG TABLET (FP) PO PRN (18:18)
[2022-11-06] MEDS ORDERED: BISMUTH SUBSALICYLATE 524 MG/30 ML PO PRN (18:18)
[2022-11-06] MEDS ORDERED: DICYCLOMINE HCL 10 MG CAPSULE PO PRN (18:18)
[2022-11-06] MEDS ORDERED: MAGNESIUM HYDROX 2400MG/30ML ORAL SUSPENSION 30 ML CUP PO PRN (18:18)
[2022-11-06] MEDS ORDERED: BENZOCAINE/MENTHOL (CHLORASEPTIC ) LOZENGE MM PRN (18:18)
[2022-11-06] MEDS ORDERED: ONDANSETRON *ODT* 4 MG TABLET SL PRN (18:18)
[2022-11-06] MEDS ORDERED: chlordiazePOXIDE HCL 25 MG CAPSULE PO PRN (18:18)
[2022-11-06] MEDS ORDERED: MAG HYDROX/AL HYDROX/SIMETH 30 ML UNIT-DOSE CUP PO PRN (18:18)
[2022-11-06] MEDS ORDERED: NALOXONE HCL (KLOXXADO) 8 MG SPRAY NS PRN (18:18)
[2022-11-06] MEDS ORDERED: POLYETHYLENE GLYCOL (HEALTHYLAX) 3350 17 GM PACKET PO PRN (18:18)
[2022-11-06] MEDS ORDERED: ACETAMINOPHEN 325 MG TABLET (FP) PO PRN (18:18)
[2022-11-06] MEDS ORDERED: LOPERAMIDE HCL 2 MG CAPSULE PO PRN (18:18)
[2022-11-06] MEDS: THIAMINE HCL 100 MG TABLET (FP) PO SCH (23:45)
[2022-11-06] MEDS: METHOCARBAMOL 500 MG TABLET PO PRN (23:45)
[2022-11-06] MEDS: MELATONIN 5 MG TABLETS PO SCH (23:46)
[2022-11-06] MEDS: chlordiazePOXIDE HCL 25 MG CAPSULE PO SCH (23:57)
[2022-11-07] MEDS: chlordiazePOXIDE HCL 25 MG CAPSULE PO SCH ×2 (06:23→11:20)
[2022-11-07] MEDS ORDERED: chlordiazePOXIDE HCL 25 MG CAPSULE PO SCH (11:14)
[2022-11-07] MEDS: PRENATAL VITAMINS W/ FOLIC ACID TABLET (FP) PO SCH (11:21)
[2022-11-07] MEDS: NICOTINE 14 MG/24 HOURS TOPICAL PATCH TD SCH (11:21)
[2022-11-07] MEDS: NICOTINE POLACRILEX 2 MG GUM BUC PRN (11:22)
[2022-11-07] MEDS: METHOCARBAMOL 500 MG TABLET PO PRN ×2 (11:23→23:08)
[2022-11-07] MEDS: ACETAMINOPHEN 325 MG TABLET (FP) PO PRN (11:27)
[2022-11-07] MEDS: diazePAM 5 MG TABLET PO SCH ×2 (12:39→18:45)
[2022-11-07 13:32] LABS: HEMATOCRIT 35.2 % (32.4-45.2); MCH 33.3 pg (25.7-33.7); MEAN PLT VOLUME 10.1 fl (7.5-11.1); PLATELET COUNT 77 10^3/uL (134-434); RDW 13.7 % (11.6-15.6); WHITE BLOOD COUNT 3.3 K/mm3 (4.0-10.0)
[2022-11-07 13:47] LABS: ALBUMIN 3.3 g/dl (3.4-5.0); CALCIUM 9.1 mg/dL (8.5-10.1)
[2022-11-07 13:48] LABS: BLOOD UREA NITROGEN 15.9 mg/dL (7-18)
[2022-11-07 13:52] LABS: TOT PROT 7.8 g/dl (6.4-8.2)
[2022-11-07 13:53] LABS: BILIRUBIN,TOTAL 0.4 mg/dL (0.2-1); CREATININE 0.8 mg/dL (0.55-1.3)
[2022-11-07] MEDS: MELATONIN 5 MG TABLETS PO SCH (22:55)
[2022-11-07] MEDS: THIAMINE HCL 100 MG TABLET (FP) PO SCH (22:55)
[2022-11-08] MEDS ORDERED: chlordiazePOXIDE HCL 25 MG CAPSULE PO SCH (05:00)
[2022-11-08] MEDS: METHOCARBAMOL 500 MG TABLET PO PRN (06:09)
[2022-11-08] MEDS: IBUPROFEN 600 MG TABLET (FP) PO PRN ×2 (06:09→17:54)
[2022-11-08] MEDS: diazePAM 5 MG TABLET PO SCH ×3 (06:10→22:32)
[2022-11-08] MEDS: NICOTINE POLACRILEX 2 MG GUM BUC PRN (09:28)
[2022-11-08] MEDS: PRENATAL VITAMINS W/ FOLIC ACID TABLET (FP) PO SCH (10:48)
[2022-11-08] MEDS: NICOTINE 14 MG/24 HOURS TOPICAL PATCH TD SCH (10:49)
[2022-11-08] MEDS: ACETAMINOPHEN 325 MG TABLET (FP) PO PRN (10:56)
[2022-11-08] MEDS: THIAMINE HCL 100 MG TABLET (FP) PO SCH (22:31)
[2022-11-08] MEDS: MELATONIN 5 MG TABLETS PO SCH (22:31)
[2022-11-09] MEDS ORDERED: chlordiazePOXIDE HCL 10 MG CAPSULE PO PRN
[2022-11-09] MEDS ORDERED: chlordiazePOXIDE HCL 10 MG CAPSULE PO SCH (05:00)
[2022-11-09] MEDS: diazePAM 5 MG TABLET PO SCH ×2 (06:02→17:38)
[2022-11-09] MEDS: IBUPROFEN 600 MG TABLET (FP) PO PRN ×2 (06:05→23:47)
[2022-11-09] MEDS: NICOTINE 14 MG/24 HOURS TOPICAL PATCH TD SCH (10:03)
[2022-11-09] MEDS: ACETAMINOPHEN 325 MG TABLET (FP) PO PRN ×2 (10:03→15:41)
[2022-11-09] MEDS: PRENATAL VITAMINS W/ FOLIC ACID TABLET (FP) PO SCH (10:03)
[2022-11-09] MEDS: NICOTINE POLACRILEX 2 MG GUM BUC PRN (20:02)
[2022-11-09 21:30] VITALS: RESP 17
[2022-11-09] MEDS: THIAMINE HCL 100 MG TABLET (FP) PO SCH (23:38)
[2022-11-09] MEDS: MELATONIN 5 MG TABLETS PO SCH (23:38)
[2022-11-09] MEDS: METHOCARBAMOL 500 MG TABLET PO PRN (23:38)
[2022-11-10] MEDS ORDERED: chlordiazePOXIDE HCL 10 MG CAPSULE PO SCH (05:00)
[2022-11-10] MEDS ORDERED: diazePAM 5 MG TABLET PO ONE (06:00)
[2022-11-10 09:59] VITALS: BP 141/84; PULSE 64; TEMP 98.2
[2022-11-10] MEDS: NICOTINE 14 MG/24 HOURS TOPICAL PATCH TD SCH (11:08)
[2022-11-10] MEDS: PRENATAL VITAMINS W/ FOLIC ACID TABLET (FP) PO SCH (11:08)
[2022-11-11] MEDS ORDERED: chlordiazePOXIDE HCL 10 MG CAPSULE PO ONE (05:00)
== END 2022-11-10 12:20 | disposition home or self-care (01) | DRG 775 ==
LOC: YASAS 12:03 → Y6N 18:20
PROVIDERS: ADMIT Allergy & Immunology; ATTEND Surgery
PROC: HZ2ZZZZ Detoxification Services for Substance Abuse Treatment (ICD-10-PCS; principal; 2022-11-06)
DX: F10.230 Alcohol dependence with withdrawal, uncomplicated (principal); F10.24 Alcohol dependence with alcohol-induced mood disorder; F10.282 Alcohol dependence with alcohol-induced sleep disorder; F10.280 Alcohol dependence with alcohol-induced anxiety disorder; F17.210 Nicotine dependence, cigarettes, uncomplicated; F43.10 Post-traumatic stress disorder, unspecified; F41.0 Panic disorder [episodic paroxysmal anxiety]; I10 Essential (primary) hypertension; M32.9 Systemic lupus erythematosus, unspecified; R63.8 Other symptoms and signs concerning food and fluid intake; U07.1 COVID-19; R00.0 Tachycardia, unspecified; Z88.8 Allergy status to other drugs, medicaments and biological substances
CPT/HCPCS: 36415; 80053; 81025; 82140; 85027; 86780; 93005; 93010; C9803-CS; U0003; U0005